=== PATIENT | male | born 1965 | race Hispanic/Latino ===

== ENCOUNTER 2024-02-12 10:24 | Inpatient (IN) | payer SELFPAY ==
[~2024-02-12] VITALS: Ht 165.1 cm; Wt 63.5 kg
[2024-02-12 10:50] LABS: BASOPHILS # (AUTO) 0.02 K/uL (0.00-0.20); BASOPHILS % (AUTO) 0.2 % (0.0-5.0); HEMATOCRIT 24.1 % (42-54); IMMATURE GRANULOCYTE ABSOLUTE 0.06 K/uL (0-1); LYMPHOCYTES # (AUTO) 0.9 K/uL (1.0-4.8); LYMPHOCYTES % (AUTO) 8.6 % (21.0-51.0); MEAN CORPUSCULAR HEMOGLOBIN 23.3 pg (27.0-33.0); MEAN CORPUSCULAR HGB CONC 30.3 g/dL (32.0-36.0); MONOCYTES # (AUTO) 0.9 K/uL (0.1-1.0); MONOCYTES % (AUTO) 8.5 % (3.0-13.0); NEUTROPHILS # (AUTO) 8.3 K/uL (1.8-7.7); NEUTROPHILS % (AUTO) 82.1 % (40.0-77.0); PLATELET COUNT (AUTO) 200 K/uL (130-400); RED BLOOD CELL COUNT(AUTO) 3.13 MIL/uL (4.50-6.20); RED CELL DISTRIBUTION WIDTH 18.4 % (11.0-15.5); WHITE BLOOD COUNT (AUTO) 10.1 K/uL (4.8-10.8)
[2024-02-12 10:58] LABS: CREATININE 0.9 mg/dL (0.5-1.3); POTASSIUM 4.1 mmol/L (3.5-5.1)
[2024-02-12 11:07] LABS: B-TYPE NATRIURETIC PEPTIDE 34 pg/mL (0-100)
[2024-02-12] MEDS: ALBUMIN (HUMAN) 25% 100 ML IV ONE ×3 (11:52→12:21)
[2024-02-12 11:55] LABS: WBC MORPHOLOGY CONSISTENT W/DIFF
[2024-02-12 12:12] LABS: INR 1.45 (0.85-1.15); PROTHROMBIN TIME 15.2 SEC (9.6-11.6)
[2024-02-12 12:13] LABS: PARTIAL THROMBOPLASTIN TIME 29.6 SEC (26.3-35.5)
[2024-02-12] MEDS ORDERED: ondanSETRON 4MG INJ IVP PRN ×2 (13:30→14:00)
[2024-02-12 13:58] LABS: APPEARANCE BODY FLUID CLEAR (CLEAR); COLOR,BODY FLUID YELLOW (LT YELLOW); SPECIMENTYPE,BODY FLUID PARACENTESIS; TOTAL VOLUME,BODY FLUID 7000 mL
[2024-02-12] MEDS ORDERED: IpraTROPium 0.5 MG/2.5 ML INH IH PRN (14:00)
[2024-02-12] MEDS: THIAMINE HCL 100 MG/ML 2ML VIAL IVP SCH (14:03)
[2024-02-12] MEDS: cefTRIAXone 1G VIAL IVPB SCH (14:03)
[2024-02-12] MEDS: PANTOPrazole 40 MG/VIAL IVP SCH (14:03)
[2024-02-12 14:26] LABS: % IRON SATURATION 5.6 % (30-44)
[2024-02-12 14:27] LABS: BF LYMPHOCYTE 12 %; BF MESOTHELIAL 8 %; BF MONOCYTE 16 %; BF TOTAL CELLS COUNTED 100
[2024-02-12 14:31] LABS: HEMOGLOBIN A1C 4.6 % (4.0-6.0)
[2024-02-12 14:33] LABS: BODY FLUID RBC 0 /cu. mm.; BODY FLUID WBC 1350 /cu. mm.
[2024-02-12 14:40] LABS: ALANINE AMINOTRANSFERASE 18 U/L (12-78); ALBUMIN 2.8 g/dL (3.5-5.0); ALCOHOL, BLOOD < 3 mg/dL (0-10); AMMONIA 34 umol/L (11-32); ASPARTATE AMINOTRANSFERASE 19 U/L (10-37); BILIRUBIN,DIRECT 0.6 mg/dL (0.0-0.3); BILIRUBIN,TOTAL 1.2 mg/dL (0.2-1.0); TOTAL PROTEIN, SERUM 6.2 g/dL (6.0-8.3)
[2024-02-12] MEDS ORDERED: CEFTRIAXONE 2GM VIAL IVPB SCH (15:00)
[2024-02-12 15:04] LABS: THYROID STIMULATING HORMONE 2.75 uIU/mL (0.36-3.74)
[2024-02-12] MEDS: cefTRIAXone 1G VIAL IVPB ONE (15:13)
[2024-02-12] MEDS: ALBUMIN (HUMAN) 25% 100 ML IV SCH (15:14)
[2024-02-12 15:15] LABS: APPEARANCE,URINE CLEAR (CLEAR); BILIRUBIN,URINE NEGATIVE (NEGATIVE); COLOR,URINE YELLOW (YELLOW); GLUCOSE, URINE (UA) NEGATIVE (NEGATIVE); KETONES,URINE NEGATIVE (NEGATIVE); LEUKOCYTE ESTERASE ,URINE NEGATIVE Leu/uL (NEGATIVE); NITRATE,URINE NEGATIVE (NEGATIVE); OCCULT BLOOD,URINE NEGATIVE (NEGATIVE); PH,URINE 5.5 (5.0-8.0); PROTEIN,URINE NEGATIVE (NEGATIVE)
[2024-02-12 15:16] LABS: ADD UA MICROSCOPIC YES
[2024-02-12 15:18] LABS: CREATININE,URINE RANDOM 129.93 mg/dL (30-135); SODIUM,URINE RANDOM < 13 mmol/l (40-220)
[2024-02-12 15:19] LABS: BACTERIA,URINE RARE /HPF (None Seen); MUCUS,URINE RARE LPF (None Seen); OTHER CASTS, URINE 1 /LPF (None Seen); RBC,URINE 0-1 /HPF (0-1); SQUAMOUS EPITHELIAL CELL,UR RARE /HPF (0-2)
[2024-02-12 15:23] LABS: AMPHET/METH SCREEN,URINE NEGATIVE (NEGATIVE); BARBITURATE SCREEN, URINE NEGATIVE (NEGATIVE); BENZODIAZEPINES SCREEN,URINE NEGATIVE (NEGATIVE); CANNABINOID SCREEN,URINE POSITIVE (NEGATIVE); COCAINE SCREEN,URINE NEGATIVE (NEGATIVE); OPIATE SCREEN,URINE NEGATIVE (NEGATIVE); PHENCYCLIDINE SCREEN,URINE NEGATIVE (NEGATIVE)
[2024-02-12 15:40] LABS: HIV 1&2 ANTIBODY Non-Reactive (Negative)
[2024-02-12 15:41] LABS: HIV-1 p24 Antigen Non-Reactive (Negative)
[2024-02-12 15:44] VITALS: PULSE 109; RESP 16; O2SAT 96
[2024-02-12] MEDS: octREOtide aceTATe 100 MCG/ML AMP IV ONE (16:22)
[2024-02-12] MEDS: INSULIN humuLIN R 100 UNIT/ML 3ML SQ SCH (16:30)
[2024-02-12] MEDS: octREOtide aceTATe 1,250 MCG in 0.9% NACL 250ML 250 ML IV SCH (16:58)
[2024-02-12 18:07] LABS: HEMATOCRIT 19.9 % (42-54)
[2024-02-12 18:42] LABS: ABG OXYGEN SATURATION 30.2 % (94.0-98.0); BASE EXCESS,VENOUS BLOOD GAS 0.7 (-2.0-3.0); DEVICE COMMENT VBG; HCO3,VENOUS BLOOD GAS 25.4 (22.0-29.0); PCO2,VENOUS BLOOD GAS 41 (38-54); PH,VENOUS BLOOD GAS 7.409 (7.320-7.430); PO2,VENOUS BLOOD GAS 20.9 mmHg (23.0-48.0)
[2024-02-12 18:49] LABS: HEMATOCRIT 21.1 % (42-54)
[2024-02-12] MEDS: SPIRONOLACTONE 25 MG TAB PO SCH (21:00)
[2024-02-12 22:45] VITALS: BP 136/86; PULSE 116; RESP 18; TEMP 97.9
[2024-02-13] VITALS (25 sets, daily range): BP systolic 104–190; BP diastolic 70–87; PULSE 100–124; RESP 18–25; TEMP 97.3–98.8; O2SAT 92–98
[2024-02-13 00:42] LABS: HEMATOCRIT 24.1 % (42-54)
[2024-02-13 04:20] LABS: BASOPHILS # (AUTO) 0.03 K/uL (0.00-0.20); BASOPHILS % (AUTO) 0.3 % (0.0-5.0); EOSINOPHILS # (AUTO) 0.01 K/uL (0.00-0.70); EOSINOPHILS % (AUTO) 0.1 % (0.0-8.0); HEMATOCRIT 23.2 % (42-54); IMMATURE GRANULOCYTE ABSOLUTE 0.06 K/uL (0-1); LYMPHOCYTES # (AUTO) 1.3 K/uL (1.0-4.8); LYMPHOCYTES % (AUTO) 13.4 % (21.0-51.0); MEAN CORPUSCULAR HEMOGLOBIN 24.2 pg (27.0-33.0); MEAN CORPUSCULAR HGB CONC 30.6 g/dL (32.0-36.0); MEAN CORPUSCULAR VOLUME 79.2 fL (79-99); MONOCYTES # (AUTO) 0.7 K/uL (0.1-1.0); MONOCYTES % (AUTO) 7.7 % (3.0-13.0); NEUTROPHILS # (AUTO) 7.5 K/uL (1.8-7.7); NEUTROPHILS % (AUTO) 77.9 % (40.0-77.0); PLATELET COUNT (AUTO) 126 K/uL (130-400); RED BLOOD CELL COUNT(AUTO) 2.93 MIL/uL (4.50-6.20); RED CELL DISTRIBUTION WIDTH 17.5 % (11.0-15.5); WHITE BLOOD COUNT (AUTO) 9.7 K/uL (4.8-10.8)
[2024-02-13 04:49] LABS: ALBUMIN 2.5 g/dL (3.5-5.0); BILIRUBIN,TOTAL 2.8 mg/dL (0.2-1.0); CREATININE 0.7 mg/dL (0.5-1.3); MAGNESIUM 1.5 mg/dL (1.80-2.40); POTASSIUM 3.5 mmol/L (3.5-5.1); TOTAL PROTEIN, SERUM 5.2 g/dL (6.0-8.3)
[2024-02-13] MEDS ORDERED: LORazepam 2 MG/ML 1 ML VIAL IVP PRN (05:30)
[2024-02-13] MEDS ORDERED: chlordiazePOXIDE HCL 25 MG CAP PO PRN (05:30)
[2024-02-13] MEDS ORDERED: PHARMACY COMMUNICATION MISC PRN (05:30)
[2024-02-13] MEDS: PANTOPrazole 40 MG/VIAL IVP SCH (05:59)
[2024-02-13] MEDS: MAGNESIUM 2GM PREMIX 50ML 50 ML IV SCH (05:59)
[2024-02-13 06:01] LABS: LYMPHOCYTES % (MANUAL) 9 % (22-44); MAN.DIFF COMMENT-IMPRESSION MANUAL DIFFERENTIAL; MONOCYTES % (MANUAL) 3 % (2-9); PLATELET MORPHOLOGY COMMENT SLIGHTLY DECREASED; SEGMENTED NEUTROPHILS % 88 % (40-70); TOTAL CELLS COUNTED 100
[2024-02-13] MEDS: CEFTRIAXONE 2GM VIAL IVPB SCH (08:58)
[2024-02-13] MEDS: LACTULOSE 20 GM/30 ML UDCUP PO SCH (08:58)
[2024-02-13] MEDS: FOLic ACID 1 MG TABLET PO SCH (08:58)
[2024-02-13] MEDS: MULTIVITAMIN TABLET PO SCH (08:58)
[2024-02-13] MEDS ORDERED: furoSEMIDE 20 MG TABLET PO SCH (09:00)
[2024-02-13] MEDS ORDERED: proPOFol 10 MG/ML 20ML VIAL IV ONE (14:06)
[2024-02-13] MEDS ORDERED: LIDOCAINE PF 100MG/5ML (2%) SYRINGE 5ML ONE (14:06)
[2024-02-13] MEDS: SOD FERRIC GLUC COMPLEX/SUC 125 MG in 0.9%NACL 100ML 100 ML IV SCH (15:28)
[2024-02-13 17:39] LABS: HEPATITIS B CORE AB TOTAL Non-Reactive (Nonreactive); HEPATITIS B SURFACE ANTIBODY Negative (Reactive); HEPATITIS B SURFACE ANTIGEN Non-Reactive (Nonreactive)
[2024-02-13] MEDS: PANTOPrazole 40 MG TAB DR PO SCH (20:09)
[2024-02-14] VITALS (7 sets, daily range): BP systolic 115–136; BP diastolic 61–79; PULSE 99–104; RESP 18–20; TEMP 97.9–98.8; O2SAT 96
[2024-02-14] MEDS: acetaMINOPHEN 500 MG TABLET PO PRN (03:11)
[2024-02-14 04:48] LABS: BASOPHILS # (AUTO) 0.04 K/uL (0.00-0.20); BASOPHILS % (AUTO) 0.5 % (0.0-5.0); EOSINOPHILS # (AUTO) 0.04 K/uL (0.00-0.70); EOSINOPHILS % (AUTO) 0.5 % (0.0-8.0); HEMATOCRIT 23.5 % (42-54); IMMATURE GRANULOCYTE ABSOLUTE 0.05 K/uL (0-1); LYMPHOCYTES # (AUTO) 1.3 K/uL (1.0-4.8); LYMPHOCYTES % (AUTO) 17.7 % (21.0-51.0); MEAN CORPUSCULAR HEMOGLOBIN 24.3 pg (27.0-33.0); MEAN CORPUSCULAR HGB CONC 31.1 g/dL (32.0-36.0); MEAN CORPUSCULAR VOLUME 78.1 fL (79-99); MONOCYTES # (AUTO) 0.8 K/uL (0.1-1.0); MONOCYTES % (AUTO) 10.3 % (3.0-13.0); NEUTROPHILS # (AUTO) 5.2 K/uL (1.8-7.7); NEUTROPHILS % (AUTO) 70.3 % (40.0-77.0); PLATELET COUNT (AUTO) 130 K/uL (130-400); RED BLOOD CELL COUNT(AUTO) 3.01 MIL/uL (4.50-6.20); WHITE BLOOD COUNT (AUTO) 7.4 K/uL (4.8-10.8)
[2024-02-14 05:15] LABS: CREATININE 0.7 mg/dL (0.5-1.3); POTASSIUM 3.6 mmol/L (3.5-5.1)
[2024-02-14 05:35] LABS: BASOPHILS % (MANUAL) 2 % (0-2); EOSINOPHILS % (MANUAL) 1 % (1-6); LYMPHOCYTES % (MANUAL) 7 % (22-44); MAN.DIFF COMMENT-IMPRESSION MANUAL DIFFERENTIAL; MONOCYTES % (MANUAL) 4 % (2-9); SEGMENTED NEUTROPHILS % 86 % (40-70); TOTAL CELLS COUNTED 100
[2024-02-14 05:36] LABS: PLATELET MORPHOLOGY COMMENT SLIGHTLY DECREASED
[2024-02-14] MEDS: ALBUMIN (HUMAN) 25% 100 ML IV SCH (06:09)
[2024-02-14 14:57] LABS: ALBUMIN,BODY FLUID < 0.6 g/dL; TOTAL PROTEIN,BODY FLUID < 2.0 g/dL
[2024-02-15] VITALS (8 sets, daily range): BP systolic 108–133; BP diastolic 59–79; PULSE 105–119; RESP 17–20; TEMP 98.2–98.9; O2SAT 96
[2024-02-15 04:43] LABS: BASOPHILS # (AUTO) 0.03 K/uL (0.00-0.20); BASOPHILS % (AUTO) 0.5 % (0.0-5.0); EOSINOPHILS # (AUTO) 0.06 K/uL (0.00-0.70); EOSINOPHILS % (AUTO) 0.9 % (0.0-8.0); HEMATOCRIT 23.1 % (42-54); IMMATURE GRANULOCYTE ABSOLUTE 0.03 K/uL (0-1); LYMPHOCYTES # (AUTO) 1.2 K/uL (1.0-4.8); MEAN CORPUSCULAR HEMOGLOBIN 24.3 pg (27.0-33.0); MEAN CORPUSCULAR HGB CONC 30.7 g/dL (32.0-36.0); MEAN CORPUSCULAR VOLUME 79.1 fL (79-99); MONOCYTES # (AUTO) 0.6 K/uL (0.1-1.0); MONOCYTES % (AUTO) 9.8 % (3.0-13.0); NEUTROPHILS # (AUTO) 4.6 K/uL (1.8-7.7); NEUTROPHILS % (AUTO) 70.3 % (40.0-77.0); PLATELET COUNT (AUTO) 122 K/uL (130-400); RED BLOOD CELL COUNT(AUTO) 2.92 MIL/uL (4.50-6.20); RED CELL DISTRIBUTION WIDTH 18.6 % (11.0-15.5); WHITE BLOOD COUNT (AUTO) 6.5 K/uL (4.8-10.8)
[2024-02-15 05:05] LABS: ALBUMIN 2.5 g/dL (3.5-5.0); BILIRUBIN,TOTAL 0.7 mg/dL (0.2-1.0); CREATININE 0.8 mg/dL (0.5-1.3); POTASSIUM 3.5 mmol/L (3.5-5.1); TOTAL PROTEIN, SERUM 5.3 g/dL (6.0-8.3)
[2024-02-15] MEDS: PoTASSium chloRIDE 20MEQ ER 20 MEQ ERTAB PO ONE (10:23)
[2024-02-15] MEDS ORDERED: PoTASSium chl 10% ELIXIR 20MEQ 20 MEQ/15 ML UDCUP PO PRN (12:00)
[2024-02-15] MEDS ORDERED: MAGNESIUM 2GM PREMIX 50ML 50 ML IV PRN (12:00)
[2024-02-15] MEDS ORDERED: PoTASSium chloRIDE 20MEQ/100ML 100 ML IV PRN (12:00)
[2024-02-16] VITALS: BP 117/64; PULSE 103; RESP 18; TEMP 99.1
[2024-02-16 04:00] VITALS: BP 111/64; PULSE 109; RESP 18; TEMP 99
[2024-02-16 04:15] LABS: BASOPHILS # (AUTO) 0.03 K/uL (0.00-0.20); BASOPHILS % (AUTO) 0.6 % (0.0-5.0); EOSINOPHILS # (AUTO) 0.08 K/uL (0.00-0.70); EOSINOPHILS % (AUTO) 1.5 % (0.0-8.0); HEMATOCRIT 23.6 % (42-54); IMMATURE GRANULOCYTE ABSOLUTE 0.03 K/uL (0-1); LYMPHOCYTES # (AUTO) 1.1 K/uL (1.0-4.8); LYMPHOCYTES % (AUTO) 19.7 % (21.0-51.0); MEAN CORPUSCULAR HEMOGLOBIN 24.9 pg (27.0-33.0); MEAN CORPUSCULAR HGB CONC 30.9 g/dL (32.0-36.0); MEAN CORPUSCULAR VOLUME 80.5 fL (79-99); MONOCYTES # (AUTO) 0.5 K/uL (0.1-1.0); MONOCYTES % (AUTO) 9.4 % (3.0-13.0); NEUTROPHILS # (AUTO) 3.7 K/uL (1.8-7.7); NEUTROPHILS % (AUTO) 68.2 % (40.0-77.0); PLATELET COUNT (AUTO) 107 K/uL (130-400); RED BLOOD CELL COUNT(AUTO) 2.93 MIL/uL (4.50-6.20); RED CELL DISTRIBUTION WIDTH 19.9 % (11.0-15.5); WHITE BLOOD COUNT (AUTO) 5.4 K/uL (4.8-10.8)
[2024-02-16 04:36] LABS: ALBUMIN 2.3 g/dL (3.5-5.0); BILIRUBIN,TOTAL 0.5 mg/dL (0.2-1.0); CREATININE 0.6 mg/dL (0.5-1.3); MAGNESIUM 1.5 mg/dL (1.80-2.40); PHOSPHORUS 1.5 mg/dL (2.5-4.9); TOTAL PROTEIN, SERUM 5.3 g/dL (6.0-8.3)
[2024-02-16 04:44] LABS: EOSINOPHILS % (MANUAL) 3 % (1-6); LYMPHOCYTES % (MANUAL) 30 % (22-44); MAN.DIFF COMMENT-IMPRESSION MANUAL DIFFERENTIAL; MONOCYTES % (MANUAL) 2 % (2-9); SEGMENTED NEUTROPHILS % 65 % (40-70); TOTAL CELLS COUNTED 100
[2024-02-16 04:45] LABS: PLATELET MORPHOLOGY COMMENT SLIGHTLY DECREASED; WBC MORPHOLOGY REACTIVE LYMPHS 1+
[2024-02-16 07:57] VITALS: BP 119/67; PULSE 107; RESP 17; TEMP 98.3
[2024-02-16] MEDS ORDERED: ALBUMIN (HUMAN) 25% 100 ML IV PRN (09:30)
[2024-02-16] MEDS ORDERED: MAGNESIUM 2GM PREMIX 50ML 50 ML IV SCH (09:30)
[2024-02-16 12:00] VITALS: BP 112/63; PULSE 104; RESP 19; TEMP 98.2
[2024-02-16] MEDS: NEOMY SULF/BACITRA/POLYMYXIN B 1 EACH PACKET TP ONE (12:19)
[2024-02-16 15:51] VITALS: BP 131/74; PULSE 112; RESP 19; TEMP 97.8
[2024-02-16 19:00] VITALS: BP 126/74; PULSE 110; RESP 20; TEMP 98.7
[2024-02-16] MEDS: NEOMY SULF/BACITRA/POLYMYXIN B 1 EACH PACKET TP SCH (20:03)
[2024-02-17] VITALS: BP 129/66; PULSE 123; RESP 20; TEMP 99.9
[2024-02-17 04:00] VITALS: BP 117/74; PULSE 109; RESP 20; TEMP 98.3
[2024-02-17 04:36] LABS: BASOPHILS # (AUTO) 0.05 K/uL (0.00-0.20); EOSINOPHILS # (AUTO) 0.22 K/uL (0.00-0.70); EOSINOPHILS % (AUTO) 4.4 % (0.0-8.0); HEMATOCRIT 22.6 % (42-54); IMMATURE GRANULOCYTE ABSOLUTE 0.02 K/uL (0-1); LYMPHOCYTES # (AUTO) 1.1 K/uL (1.0-4.8); MEAN CORPUSCULAR HEMOGLOBIN 25.1 pg (27.0-33.0); MONOCYTES # (AUTO) 0.6 K/uL (0.1-1.0); MONOCYTES % (AUTO) 12.1 % (3.0-13.0); NEUTROPHILS % (AUTO) 60.1 % (40.0-77.0); PLATELET COUNT (AUTO) 109 K/uL (130-400); RED BLOOD CELL COUNT(AUTO) 2.79 MIL/uL (4.50-6.20)
[2024-02-17 04:42] LABS: ALBUMIN 2.1 g/dL (3.5-5.0); BILIRUBIN,TOTAL 0.5 mg/dL (0.2-1.0); CREATININE 0.7 mg/dL (0.5-1.3); MAGNESIUM 1.7 mg/dL (1.80-2.40); POTASSIUM 3.8 mmol/L (3.5-5.1); TOTAL PROTEIN, SERUM 5.3 g/dL (6.0-8.3); URIC ACID 1.8 mg/dL (2.6-7.2)
[2024-02-17 06:02] LABS: EOSINOPHILS % (MANUAL) 2 % (1-6); LYMPHOCYTES % (MANUAL) 26 % (22-44); SEGMENTED NEUTROPHILS % 72 % (40-70); TOTAL CELLS COUNTED 100
[2024-02-17 06:03] LABS: MAN.DIFF COMMENT-IMPRESSION MANUAL DIFFERENTIAL
[2024-02-17 06:05] LABS: PLATELET MORPHOLOGY COMMENT DECREASED; WBC MORPHOLOGY REACTIVE LYMPHS 1+
[2024-02-17 07:47] VITALS: BP 119/64; PULSE 103; RESP 16; TEMP 99
[2024-02-17 11:48] VITALS: BP 126/77; PULSE 101; RESP 16; TEMP 98.2
[2024-02-17 20:00] VITALS: BP 117/77; PULSE 65; RESP 18; TEMP 98
[2024-02-18] VITALS (7 sets, daily range): BP systolic 122–154; BP diastolic 68–83; PULSE 54–97; RESP 16–20; TEMP 97.6–98.5; O2SAT 99
[2024-02-18 05:55] LABS: BASOPHILS # (AUTO) 0.03 K/uL (0.00-0.20); BASOPHILS % (AUTO) 0.6 % (0.0-5.0); EOSINOPHILS # (AUTO) 0.22 K/uL (0.00-0.70); EOSINOPHILS % (AUTO) 4.6 % (0.0-8.0); HEMATOCRIT 28.9 % (42-54); IMMATURE GRANULOCYTE ABSOLUTE 0.01 K/uL (0-1); LYMPHOCYTES # (AUTO) 1.1 K/uL (1.0-4.8); LYMPHOCYTES % (AUTO) 22.4 % (21.0-51.0); MEAN CORPUSCULAR HEMOGLOBIN 26.6 pg (27.0-33.0); MEAN CORPUSCULAR HGB CONC 32.2 g/dL (32.0-36.0); MEAN CORPUSCULAR VOLUME 82.8 fL (79-99); MONOCYTES # (AUTO) 0.6 K/uL (0.1-1.0); NEUTROPHILS # (AUTO) 2.8 K/uL (1.8-7.7); NEUTROPHILS % (AUTO) 59.2 % (40.0-77.0); PLATELET COUNT (AUTO) 103 K/uL (130-400); RED BLOOD CELL COUNT(AUTO) 3.49 MIL/uL (4.50-6.20); RED CELL DISTRIBUTION WIDTH 21.1 % (11.0-15.5); WHITE BLOOD COUNT (AUTO) 4.8 K/uL (4.8-10.8)
[2024-02-18 06:09] LABS: ALBUMIN 2.2 g/dL (3.5-5.0); BILIRUBIN,TOTAL 1.2 mg/dL (0.2-1.0); CREATININE 0.6 mg/dL (0.5-1.3); MAGNESIUM 1.7 mg/dL (1.80-2.40); POTASSIUM 3.7 mmol/L (3.5-5.1); TOTAL PROTEIN, SERUM 5.5 g/dL (6.0-8.3)
[2024-02-18] MEDS: PoTASSium chloRIDE 20MEQ ER 20 MEQ ERTAB PO PRN (08:33)
[2024-02-18] MEDS: MAGNESIUM 2GM PREMIX 50ML 50 ML IV SCH (08:34)
[2024-02-18] MEDS: ALBUMIN (HUMAN) 25% 50 ML IV SCH (12:00)
[2024-02-18] MEDS: SPIRONOLACTONE 25 MG TAB PO SCH (13:30)
[2024-02-18] MEDS: PROPRANOLOL HCL 10 MG TAB PO SCH (13:31)
[2024-02-18] MEDS: furoSEMIDE 20 MG TABLET PO SCH (13:31)
[2024-02-18] MEDS ORDERED: ALBUMIN (HUMAN) 25% 50 ML IV SCH (18:30)
[2024-02-18] MEDS ORDERED: SPIRONOLACTONE 25 MG TAB PO SCH (21:00)
[2024-02-19 04:00] VITALS: BP 118/67; PULSE 77; RESP 16; TEMP 98.6
[2024-02-19 05:42] LABS: HEMATOCRIT 29.5 % (42-54); MEAN CORPUSCULAR HEMOGLOBIN 26.3 pg (27.0-33.0); MEAN CORPUSCULAR HGB CONC 31.5 g/dL (32.0-36.0); MEAN CORPUSCULAR VOLUME 83.3 fL (79-99); RED BLOOD CELL COUNT(AUTO) 3.54 MIL/uL (4.50-6.20); RED CELL DISTRIBUTION WIDTH 22.2 % (11.0-15.5)
[2024-02-19 05:54] LABS: CREATININE 0.7 mg/dL (0.5-1.3); MAGNESIUM 1.8 mg/dL (1.80-2.40); PHOSPHORUS 2.6 mg/dL (2.5-4.9); POTASSIUM 4.3 mmol/L (3.5-5.1)
[2024-02-19 08:00] VITALS: BP 141/81; PULSE 76; RESP 18; TEMP 97.9
[2024-02-19] MEDS ORDERED: furoSEMIDE 20 MG TABLET PO SCH (09:00)
[2024-02-19] MEDS ORDERED: PROPRANOLOL HCL 10 MG TAB PO SCH (09:00)
[2024-02-19 12:00] VITALS: BP 127/72; PULSE 73; RESP 18; TEMP 98.1
[2024-02-19] MEDS ORDERED: PANT40TA PO (13:03)
[2024-02-19] MEDS ORDERED: PROP10TA72 PO (13:03)
[2024-02-19] MEDS ORDERED: MVIT PO (13:03)
[2024-02-19] MEDS ORDERED: SPIR25TA6 PO (13:03)
[2024-02-19] MEDS ORDERED: LACT PO (13:03)
[2024-02-19] MEDS ORDERED: FURO20TA6 PO (13:03)
[2024-02-19 16:00] VITALS: BP 132/73; PULSE 72; RESP 18; TEMP 98.3
[2024-02-19 20:43] VITALS: BP 112/66; PULSE 91; RESP 18; TEMP 99.1
[2024-02-20 00:11] VITALS: BP 126/78; PULSE 61; RESP 18; TEMP 98
[2024-02-20 04:54] VITALS: BP 127/66; PULSE 81; RESP 18; TEMP 98.2
[2024-02-20 04:55] LABS: MEAN CORPUSCULAR HEMOGLOBIN 26.3 pg (27.0-33.0); RED BLOOD CELL COUNT(AUTO) 3.53 MIL/uL (4.50-6.20); RED CELL DISTRIBUTION WIDTH 22.7 % (11.0-15.5); WHITE BLOOD COUNT (AUTO) 4.1 K/uL (4.8-10.8)
[2024-02-20 05:21] LABS: ALBUMIN 2.4 g/dL (3.5-5.0); BILIRUBIN,TOTAL 0.6 mg/dL (0.2-1.0); CREATININE 0.8 mg/dL (0.5-1.3); MAGNESIUM 1.5 mg/dL (1.80-2.40); TOTAL PROTEIN, SERUM 5.8 g/dL (6.0-8.3)
[2024-02-20 07:57] VITALS: BP 139/77; PULSE 91; RESP 20; TEMP 98.4
[2024-02-20 08:00] VITALS: O2SAT 100
[2024-02-20 11:18] VITALS: BP 118/72; PULSE 72; RESP 16; TEMP 97.8
== END 2024-02-20 13:05 | disposition home or self-care (01) | DRG 432 ==
LOC: EDH 10:24 → EDHIP 10:25 → UNDOADMIN 14:30 → EDHIP 14:30 → 4CH 22:04
PROVIDERS: ADMIT Internal Medicine; ATTEND Internal Medicine
PROC: 30233N1 Transfusion of Nonautologous Red Blood Cells into Peripheral Vein, Percutaneous Approach (ICD-10-PCS; principal; 2024-02-12)
PROC: 0W9G3ZZ Drainage of Peritoneal Cavity, Percutaneous Approach (ICD-10-PCS; 2024-02-12)
PROC: 06L38CZ Occlusion of Esophageal Vein with Extraluminal Device, Via Natural or Artificial Opening Endoscopic (ICD-10-PCS; 2024-02-13)
DX: K70.31 Alcoholic cirrhosis of liver with ascites (principal); E43 Unspecified severe protein-calorie malnutrition; K65.2 Spontaneous bacterial peritonitis; D62 Acute posthemorrhagic anemia; D68.9 Coagulation defect, unspecified; E87.1 Hypo-osmolality and hyponatremia; K63.3 Ulcer of intestine; J90 Pleural effusion, not elsewhere classified; J98.11 Atelectasis; E87.20 Acidosis, unspecified; I85.10 Secondary esophageal varices without bleeding; K29.00 Acute gastritis without bleeding; K70.40 Alcoholic hepatic failure without coma; E86.1 Hypovolemia; R54 Age-related physical debility; E11.9 Type 2 diabetes mellitus without complications; J44.9 Chronic obstructive pulmonary disease, unspecified; E87.70 Fluid overload, unspecified; I10 Essential (primary) hypertension; D50.9 Iron deficiency anemia, unspecified; F10.20 Alcohol dependence, uncomplicated; Z63.4 Disappearance and death of family member; Z79.899 Other long term (current) drug therapy; Z82.49 Family history of ischemic heart disease and other diseases of the circulatory system; Z83.3 Family history of diabetes mellitus; Z93.3 Colostomy status; Z68.23 Body mass index [BMI] 23.0-23.9, adult
CPT/HCPCS: 36415; 36600; 43244; 71045; 74176; 76700; 76705; 80048; 80053; 80076; 80305; 81001; 82042; 82140; 82270; 82435; 82550; 82570; 82607; 82728; 82746; 82803; 82947; 82948; 83036; 83540; 83550; 83605; 83615; 83735; 83880; 84100; 84132; 84157; 84295; 84300; 84443; 84484; 84550; 85014; 85018; 85025; 85027; 85610; 85730; 86701; 86704; 86706; 86803; 86850; 86900; 86901; 86923; 87040; 87071; 87205; 87340; 87390; 88112; 88305; 89051; 93005; 93306; 93356; 93970; 94664; 96365; 96375; 99291; A4606; G0378; J0696; J1815; J2003; J2354; J2470; J2704; J2916; J3411; J3475; J7030; J7050; P9016; P9046; P9047; A4215; A4222; A4620; A4657; J3490

== ENCOUNTER 2024-06-04 10:28 | Emergency (ER) | payer SELFPAY ==
[~2024-06-04] VITALS: Ht 162.6 cm; Wt 65.8 kg
[~2024-06-04 10:28] MED LIST: AZIT500T4 PO; FURO20TA6 PO; LACT PO; MVIT PO; PANT40TA PO; PROP10TA72 PO; SPIR25TA6 PO
--- NOTE | 2024-06-04 10:47 | ERN ---
ED Note History of Present Illness Stated Complaint: DRAIN STOMACH Time Seen by MD: 10:32 Dictation: PATIENT IS A 58-YEAR-OLD MALE COMING IN TODAY WITH COMPLAINTS OF ABDOMINAL DISTENTION AND SOB FOR TWO WEEKS. NO CHEST PAIN NO BACK PAIN NO FEVER NO CHILLS. HE DOES HAVE A HISTORY OF ALCOHOLIC CIRRHOSIS STATES HE GOES ONLY TO EMERGENCY ROOMS FOR HIS PARACENTESIS. HE HAS BEEN SEEN AT [facility] [place] IN THE PAST. HE STATES HE DOES NOT HAVE A PRIMARY CARE DOCTOR OR A TWO WAY RADIO INSTALLER, WOULD LIKE SOME HELP WITH THE EMERGENCY MEDICAID TO OBTAIN A PHYSICIAN. Allergies: Coded Allergies: No Known Drug Allergies (Unverified Allergy, Unknown, 02/12/24) Home Meds Active Scripts Azithromycin (Azithromycin) 500 Mg Tablet, 1 TAB PO DAILY for 5 Days, #5 TAB 0 Refills Prov:STIVEN CRAWLEY Luis [facility] 05/12/24 Spironolactone (Spironolactone) 25 Mg Tablet, 25 MG PO BID, #60 TAB 0 Refills Prov:MISBAHSTIVEN B [facility] 02/19/24 Propranolol HCl (Inderal) 10 Mg Tab, 10 MG PO DAILY, #30 TAB 0 Refills Prov:ANI CRAWLEYROBBI Smith [facility] 02/19/24 Pantoprazole Sodium (Protonix) 40 Mg Tablet.dr, 40 MG PO BID, #60 TAB 0 Refills Prov:STIVEN CRAWLEY Luis [facility] 02/19/24 Multivitamins,Therapeutic (Multivitamin Tablet) 400 Mcg Tab, 1 TAB PO DAILY, #30 TAB 0 Refills Prov:CRAWLEYSTIVEN Luis [facility] 02/19/24 Lactulose (Cephulac/Enulose Soln) 20 Gram/30 Ml Soln, 20 GM PO DAILY, #1 BOTTLE Prov:CRAWLEYSTIVEN Luis [facility] 02/19/24 Furosemide (Lasix 20Mg Tab) 20 Mg Tablet, 20 MG PO DAILY, #30 TAB Prov:STIVEN CRAWLEY Luis [facility] 02/19/24 Past Medical History Past Medical History: Anemia, CHF, Diabetes-Type II, Hypertension, Liver Disease Surgical History: None PSYCH History: no pertinent psych hx RN Note Reviewed/Agreed w/PFSH: Yes Review of System Dictation CONSTITUTIONAL: NEGATIVE EXCEPT FOR HPI HEAD/FACE: NEGATIVE EXCEPT FOR HPI EENT: NEGATIVE EXCEPT FOR HPI RESPIRATORY: NEGATIVE EXCEPT FOR HPI SOB GASTROINTESTINAL/ABDOMINAL: NEGATIVE EXCEPT FOR HPI ABDOMINAL DISTENTION WITH A ASCITES GENITOURINARY: NEGATIVE EXCEPT FOR HPI MUSCULOSKELETAL: NEGATIVE EXCEPT FOR HPI INTEGUMENTARY: NEGATIVE EXCEPT FOR HPI NEUROLOGICAL/PSYCH: NEGATIVE EXCEPT FOR HPI HEMATOLOGIC/LYMPHATIC: NEGATIVE EXCEPT FOR HPI ALL SYSTEMS NEGATIVE, EXCEPT NOTED ABOVE. 13 POINT REVIEW OF SYSTEMS ASSESSED AND ALL NEGATIVE EXCEPT FOR ABOVE. Initial Vital Sign VS Vital Signs Date Time Temp Pulse Resp B/P (MAP) Pulse Ox O2 Delivery O2 Flow Rate FiO2 06/04/24 10:49 98.1 112 24 145/111 99 Room Air 06/04/24 11:24 0 21 Physical Exam Dictation VITAL SIGNS REVIEWED GENERAL APPEARANCE: ALERT, ORIENTED X 3, [id number] DISTRESS, APPEARS DEBILITATED SHORTNESS A BREATH WITH THE EXERTION HEAD AND FACE: NON-TRAUMATIC. EYES: PERRL, PINK CONJUNCTIVAS, EYELID NO TRAUMA, ANTERIOR CHAMBER WITH ARCUS SENILIS. EARS: PINNAS INTACT AND NO SIGNS OF TRAUMA OR ERYTHEMA EAR CANALS CLEAR AND NO DISCHARGE TM NO ERYTHEMA NOSE: NO DISCHARGE, NO BLEEDING. OROPHARYNX: MOUTH NORMAL, TONGUE PINK, PHARYNX CLEAR,NO ERYTHEMA, TONSILS NO EXUDATES, NO ABSCESSES NOTED, MUCOUS MEMBRANE MOIST NECK: SUPPLE, NON-TENDER, NO THYROMEGALY, NO MASSES, NO JVD, NO BRUITS BREAST:DEFERRED CHEST:NO TENDERNESS, NO CREPITUS, NO PARADOXICAL MOVEMENT, NO RETRACTIONS LUNGS:CLEAR, WELL-VENTILATED, SYMMETRIC, NO RALES, NO WHEEZING, NO RHONCHI, NO STRIDOR, GOOD BREATH SOUNDS BILATERALLY HEART: REGULAR RATE, REGULAR RHYTHM, NO MURMUR, NO GALLOPS VASCULAR: NO PERIPHERAL EDEMA, ABDOMEN: SOFT, POSITIVE BOWEL SOUNDS, ABDOMEN DISTENDED WITH POSITIVE WAVE SIGN, NO GUARDING, NONTENDER, NO REBOUND, NO MASSES N POSITIVE HEPATOMEGALY, NO SPLENOMEGALY, NO ROBERTSON'S SIGN, NO HERNIAS. RECTAL: DEFERRED GENITAL: DEFERRED NEUROLOGICAL: NORMAL SPEECH, MOTOR FUNCTION INTACT, SENSORY FUNCTION INTACT MUSCULOSKELETAL: NECK NONTENDER, FULL RANGE OF MOTION, BACK NONTENDER, FULL RANGE OF MOTION, EXTREMITIES: NONTENDER, FULL RANGE OF MOTION SKIN: COLOR PINK, DRY, NO TURGOR, NO RASH, NO LACERATIONS, NO ABRASIONS, NO CON TUSIONS. LYMPHATIC: DEFERRED Results (Laboratory/Radiology) Laboratory/Radiology Laboratory Tests Test 06/04/24 11:34 White Blood Count 4.3 K/uL (4.8-10.8) L Red Blood Count 4.24 MIL/uL (4.50-6.20) L Hemoglobin 11.7 g/dL (14.0-18.0) L Hematocrit 37.2 % (42-54) L Mean Corpuscular Volume 87.7 fL (79-99) Mean Corpuscular Hemoglobin 27.6 pg (27.0-33.0) Mean Corpuscular Hemoglobin Concent 31.5 g/dL (32.0-36.0) L Red Cell Distribution Width 15.1 % (11.0-15.5) Platelet Count 202 K/uL (130-400) Mean Platelet Volume 9.0 fL (7.5-10.5) Immature Granulocyte % (Auto) 0.2 % (0-1) Neutrophils (%) (Auto) 72.6 % (40.0-77.0) Lymphocytes (%) (Auto) 18.6 % (21.0-51.0) L Monocytes (%) (Auto) 7.9 % (3.0-13.0) Eosinophils (%) (Auto) 0.2 % (0.0-8.0) Basophils (%) (Auto) 0.5 % (0.0-5.0) Neutrophils # (Auto) 3.1 K/uL (1.8-7.7) Lymphocytes # (Auto) 0.8 K/uL (1.0-4.8) L Monocytes # (Auto) 0.3 K/uL (0.1-1.0) Eosinophils # (Auto) 0.01 K/uL (0.00-0.70) Basophils # (Auto) 0.02 K/uL (0.00-0.20) Absolute Immature Granulocyte (auto 0.01 K/uL (0-1) Nucleated Red Blood Cells 0.0 % (0.0-0.19) Prothrombin Time 11.7 SEC (9.6-11.6) H Prothromb Time International Ratio 1.05 (0.85-1.15) Activated Partial Thromboplast Time 25.9 SEC (26.3-35.5) L Sodium Level 133 mmol/L (136-145) L Potassium Level 4.7 mmol/L (3.5-5.1) Chloride Level 99 mmol/L (101-111) L Carbon Dioxide Level 25 mmol/L (21-32) Blood Urea Nitrogen 21 mg/dL (7-18) H Creatinine 1.0 mg/dL (0.5-1.3) Glomerular Filtration Rate Calc 87 mL/min (>90) Random Glucose 193 mg/dL (70-105) H Total Calcium 8.9 mg/dL (8.5-10.1) Labs Reviewed?: Yes ED Course ED Course Orders Procedure Category Date Status Time Us Abdominal US 06/04/24 Taken Paracentesis Ir 10:44 Pt And Ptt LAB 06/04/24 Complete 10:44 Cbc With Differential LAB 06/04/24 Complete 10:44 Basic Metabolic Panel LAB 06/04/24 Complete 10:44 Albumin Human 25% PHA 06/04/24 Complete (Albutein) 12:31 Current Medications Medications (Trade) Dose Ordered Sig/Maciej Route PRN Reason Start Time Stop Time Status Last Admin Dose Admin Albumin Human 200 ml @ As Directed STK-MED ONCE IV 06/04/24 12:31 06/04/24 12:31 DC Vital Signs Date Time Temp Pulse Resp B/P (MAP) Pulse Ox O2 Delivery O2 Flow Rate FiO2 06/04/24 13:30 98.1 107 22 137/87 100 Room Air* 0 21 06/04/24 11:24 98.1 121 22 153/108 98 Room Air* 0 21 06/04/24 10:49 98.1 112 24 145/111 99 Room Air 1335, PATIENT WENT TO PARACENTESIS AND HAS ALREADY BEEN TREATED FOR ALBUMIN POST PARA. HE STATES HE FEELS MARKEDLY IMPROVED WE WILL BE DISCHARGED HOME. Medical Decision Making MDM MDM: DIFFERENTIAL DIAGNOSIS: CIRRHOSIS/ASCITES/ELECTROLYTE IMBALANCE/DEHYDRATION/DYSPNEA RATIONALE: TESTS CONSIDERED AND ORDERED SECONDARY TO SHARED DECISION MAKING INCLUDE: LABS/IR PARACENTESIS PREVIOUS OUTSIDE RECORDS REVIEWED: OLD ER VISITS. REVIEWED RISK OF COMPLICATION AND/OR MORBIDITY OR MORTALITY OF PATIENT MANAGEMENT: NONE MEDICATIONS-PER MEDICATION RECONCILIATION NEED FOR HOSPITALIZATION: PATIENT DOES NOT MEET CRITERIA FOR HOSPITALIZATION. NO NEED FOR EMERGENCY MAJOR/MINOR SURGERY: NO THERE ARE NO SOCIAL CONCERNS WITH THIS PATIENT. PRESCRIPTION DRUG MANAGEMENT NONE PRESCRIPTIONS WILL INCLUDE SYMPTOMATIC CARE PATIENT'S PRIOR EXTERNAL MEDICAL RECORDS FROM OTHER ER VISITS WERE REVIEWED BY ME INDICATED. PRIOR TESTING AND RESULTS FROM PREVIOUS VISITS WERE REVIEWED. PRIOR TESTS WERE TAKEN INTO ACCOUNT WITH MEDICAL DECISION MAKING AND RESOURCE UTILIZATION, INDEPENDENT HISTORIAN/HISTORIANS WERE USED TO OBTAIN COMPLETE MEDICAL HISTORY. I INDEPENDENTLY INTERPRETED THE TEST THAT WERE PERFORMED, RESULTS WERE REVIEWED BY ME AND CONSIDERED FINDINGS ON RADIOLOGY IF ORDERED. MEDICAL MANAGEMENT AND EXAMINATION INTERPRETATION DISCUSSIONS WERE HAD BY ME WITH OTHER QUALIFIED HEALTHCARE PROFESSIONALS INDICATED FOR THE PATIENT'S CARE. DX & DISP Disposition: Discharge Departure Impression: Primary Impression: Abdominal distention Additional Impressions: Cirrhosis, Hyponatremia, Uncontrolled diabetes mellitus, Dyspnea on exertion Condition: Stable Additional Instructions: Follow-up with primary care provider in 1 to 2 days. Take medications as directed here in the emergency room. Okay to continue home medications unless otherwise discussed during your visit in the emergency room today. Return to your nearest emergency room if symptoms worsen or if there is no improvement. Call 911 if you need immediate assistance. Take Tylenol or Motrin [id number] as needed and if no contraindications are present. Increase oral hydration. A wound culture or urine culture was ordered here in the emergency room department please follow-up with primary care provider and advise them to get repeat ports from our facility. If you had any Francisco wrap/splints that were applied here, please do not remove them until you see your primary care or specialty. Continue all your medications and treatments at home. Call [facility] for an appointment in the last next 1-2 days. Referrals: SELF,REFERRAL (PCP) YASSINE CRAWLEY MD Time of Disposition: 13:37 I have reviewed the case, and I agree with, Diagnosis and Plan FERMIN HERNANDEZ NP Jun 04, 2024 10:47
[2024-06-04 11:46] LABS: BASOPHILS # (AUTO) 0.02 K/uL (0.00-0.20); BASOPHILS % (AUTO) 0.5 % (0.0-5.0); EOSINOPHILS # (AUTO) 0.01 K/uL (0.00-0.70); EOSINOPHILS % (AUTO) 0.2 % (0.0-8.0); HEMATOCRIT 37.2 % (42-54); IMMATURE GRANULOCYTE ABSOLUTE 0.01 K/uL (0-1); LYMPHOCYTES # (AUTO) 0.8 K/uL (1.0-4.8); LYMPHOCYTES % (AUTO) 18.6 % (21.0-51.0); MEAN CORPUSCULAR HEMOGLOBIN 27.6 pg (27.0-33.0); MEAN CORPUSCULAR HGB CONC 31.5 g/dL (32.0-36.0); MEAN CORPUSCULAR VOLUME 87.7 fL (79-99); MONOCYTES # (AUTO) 0.3 K/uL (0.1-1.0); MONOCYTES % (AUTO) 7.9 % (3.0-13.0); NEUTROPHILS # (AUTO) 3.1 K/uL (1.8-7.7); NEUTROPHILS % (AUTO) 72.6 % (40.0-77.0); PLATELET COUNT (AUTO) 202 K/uL (130-400); RED BLOOD CELL COUNT(AUTO) 4.24 MIL/uL (4.50-6.20); RED CELL DISTRIBUTION WIDTH 15.1 % (11.0-15.5); WHITE BLOOD COUNT (AUTO) 4.3 K/uL (4.8-10.8)
[2024-06-04 11:55] LABS: INR 1.05 (0.85-1.15); PROTHROMBIN TIME 11.7 SEC (9.6-11.6)
[2024-06-04 11:56] LABS: PARTIAL THROMBOPLASTIN TIME 25.9 SEC (26.3-35.5)
[2024-06-04 12:13] LABS: POTASSIUM 4.7 mmol/L (3.5-5.1)
--- NOTE | 2024-06-04 12:20 | NUR ---
U/S GD PARACENTESIS TOLERATED PROCEDURE. PERFORMED BY DR NICHOLSON. PUNCTURE SITE TO RLQ. 15.0 LITER OF YELLOW CLOUDY FLUID REMOVED. END OF PROCEDURE AT 1220. DRESSING DRY AND INTACT. NO BLEEDING NOTED. REPORT GIVEN TO Simone LEUNG RN. A&O. DENIES PAIN. ALBUMIN 25% 50 GRAMS GIVEN PRIOR TO BEING TRANSPORTED TO ED VIA STRETCHER.
--- NOTE | 2024-06-04 12:25 | NUR ---
PT BACK FROM IR FOR PARACENTISIS. 15L REMOVED FROM RLQ. SITE IS CLEAN, DRY AND INTACT.
[2024-06-04] MEDS ORDERED: ALBUMIN HUMAN 25% 200 ML IV ONE (12:31)
[2024-06-04 13:30] VITALS: BP 137/87; PULSE 107; RESP 22; TEMP 98.1; O2SAT 100
== END 2024-06-04 13:52 | disposition home or self-care (01) ==
LOC: EDH 10:28
DX: K74.60 Unspecified cirrhosis of liver (principal); E87.1 Hypo-osmolality and hyponatremia; R14.0 Abdominal distension (gaseous); E11.65 Type 2 diabetes mellitus with hyperglycemia; I11.0 Hypertensive heart disease with heart failure; I50.9 Heart failure, unspecified; R06.09 Other forms of dyspnea; Z79.899 Other long term (current) drug therapy
CPT/HCPCS: 49083; 99285; 96365; 80048; 85025; 85610; 85730; 36415; P9046; C1729

== ENCOUNTER 2024-06-30 09:52 | Emergency (ER) | payer SELFPAY ==
[~2024-06-30] VITALS: Ht 165.1 cm; Wt 65.8 kg
[2024-06-30 10:27] LABS: BASOPHILS # (AUTO) 0.02 K/uL (0.00-0.20); BASOPHILS % (AUTO) 0.4 % (0.0-5.0); EOSINOPHILS # (AUTO) 0.01 K/uL (0.00-0.70); EOSINOPHILS % (AUTO) 0.2 % (0.0-8.0); HEMATOCRIT 35.7 % (42-54); IMMATURE GRANULOCYTE ABSOLUTE 0.02 K/uL (0-1); LYMPHOCYTES # (AUTO) 0.8 K/uL (1.0-4.8); LYMPHOCYTES % (AUTO) 13.8 % (21.0-51.0); MEAN CORPUSCULAR HGB CONC 31.9 g/dL (32.0-36.0); MEAN CORPUSCULAR VOLUME 81.3 fL (79-99); MONOCYTES # (AUTO) 0.5 K/uL (0.1-1.0); MONOCYTES % (AUTO) 9.6 % (3.0-13.0); NEUTROPHILS # (AUTO) 4.1 K/uL (1.8-7.7); NEUTROPHILS % (AUTO) 75.6 % (40.0-77.0); PLATELET COUNT (AUTO) 214 K/uL (130-400); RED BLOOD CELL COUNT(AUTO) 4.39 MIL/uL (4.50-6.20); RED CELL DISTRIBUTION WIDTH 16.3 % (11.0-15.5); WHITE BLOOD COUNT (AUTO) 5.4 K/uL (4.8-10.8)
--- NOTE | 2024-06-30 10:34 | EKG ---
[facility] Test Date: 2024-06-30 Test Time: 10:16:59 Pat Name: RALPH SHAY Department: ED Room: Gender: M Stacker Tender: 07 : 1965 Requested By: PEREZ FITZGERALD Order Number: [id number] Reading MD: Andrey Easley Measurements Intervals [place] Rate: 117 P: 6 OR: 150 QRS: -13 QRSD: 82 T: 16 QT: 338 QTc: 471 Interpretive Statements Sinus tachycardia Extensive anterior infarct, old Compared to ECG 05/07/2024 09:25:19 No significant changes Electronically Signed On 07-01-2024 11:52:30 SNELLER HAND by Andrey Easley Please click the below link to view image of tracing.
[2024-06-30 10:37] LABS: INR 1.06 (0.85-1.15); PROTHROMBIN TIME 11.8 SEC (9.6-11.6)
[2024-06-30 10:39] LABS: PARTIAL THROMBOPLASTIN TIME 26.5 SEC (26.3-35.5)
--- NOTE | 2024-06-30 10:58 | ERN ---
ED Note History of Present Illness Stated Complaint: ABD DISTENTION Chief Complaint: Abdominal Pain Time Seen by MD: 10:02 Dictation: 58-year-old male with a history of liver cirrhosis presents to the ED for evaluation of abdominal distention onset one month ago. Patient reports his last paracentesis was performed last month, but states he has been unable to follow up with PCP. Patient denies any associated symptoms at this time. Allergies: Coded Allergies: bee venom protein (honey bee) (Unverified Allergy, Unknown, 06/30/24) Home Meds Active Scripts Azithromycin (Azithromycin) 500 Mg Tablet, 1 TAB PO DAILY for 5 Days, #5 TAB 0 Refills Prov:STIVEN CRAWLEY [facility] 05/12/24 Spironolactone (Spironolactone) 25 Mg Tablet, 25 MG PO BID, #60 TAB 0 Refills Prov:STIVEN CRAWLEY [facility] 02/19/24 Propranolol HCl (Inderal) 10 Mg Tab, 10 MG PO DAILY, #30 TAB 0 Refills Prov:STIVEN CRAWLEY Luis [facility] 02/19/24 Pantoprazole Sodium (Protonix) 40 Mg Tablet.dr, 40 MG PO BID, #60 TAB 0 Refills Prov:STIVEN CRAWLEY [facility] 02/19/24 Multivitamins,Therapeutic (Multivitamin Tablet) 400 Mcg Tab, 1 TAB PO DAILY, #30 TAB 0 Refills Prov:STIVEN CRAWLEY [facility] 02/19/24 Lactulose (Cephulac/Enulose Soln) 20 Gram/30 Ml Soln, 20 GM PO DAILY, #1 BOTTLE Prov:STIVEN CRAWLEY Luis [facility] 02/19/24 Furosemide (Lasix 20Mg Tab) 20 Mg Tablet, 20 MG PO DAILY, #30 TAB Prov:STIVEN CRAWLEY [facility] 02/19/24 Past Medical History Past Medical History: Anemia, Diabetes-Type II, Hypertension, Liver Disease, Renal Failure Surgical History: None Review of System Dictation Constitutional: Negative for fever,chills, and weight loss Eyes: Negative for injury, pain,redness, and discharge ENT: Negative for injury,pain or swelling Cardiovascular: Negative for chest pain, palpitations, and edema Respiratory: Negative for shortness of breath, cough, and wheezing, Abdomen/GI: Positive for abdominal distention Negative for abdominal pain, nausea, vomiting, diarrhea, and constipation Back: Negative for injury and pain : Negative for injury, bleeding and discharge MS/Extremity: Negative for injury and deformity Skin: Negative for rash, and discoloration Neuro: Negative for headache, weakness, numbness, tingling, and seizure Psych: Negative for suicide ideation, homicidal ideation, and hallucinations Initial Vital Sign VS Vital Signs Date Time Temp Pulse Resp B/P (MAP) Pulse Ox O2 Delivery O2 Flow Rate FiO2 06/30/24 09:53 97.0 122 20 134/102 98 Room Air 0 06/30/24 10:40 21 Physical Exam Dictation General: awake, alert, NAD Head/Face: Normocephalic, atraumatic Eyes: PERRL, EOMI, vision at baseline ENT: oral cavity clear, TMs clear, no signs of infection Neck: Trachea midline, supple, no nuchal rigidity Cardiovascular: Tachycardic, No MRGs, no JVD Respiratory: CTAB, no respiratory distress, No rales or wheezes Abdomen: Soft, non-tender, moderate distention, normal bowel sounds, no guarding or rebound. Skin: Warm, dry, normal turgor, no rash MS/Extremity: Pulses equal, no cyanosis, neurovascular intact, FROM Neuro: COAx4, GCS 15, strength 5/5, CN 2-12 intact, normal cerebellar exam, normal gait, Psych: Normal behavior, mood, and affect normal Results (Laboratory/Radiology) Laboratory/Radiology Laboratory Tests Test 06/30/24 10:17 06/30/24 10:35 White Blood Count 5.4 K/uL (4.8-10.8) Red Blood Count 4.39 MIL/uL (4.50-6.20) L Hemoglobin 11.4 g/dL (14.0-18.0) L Hematocrit 35.7 % (42-54) L Mean Corpuscular Volume 81.3 fL (79-99) Mean Corpuscular Hemoglobin 26.0 pg (27.0-33.0) L Mean Corpuscular Hemoglobin Concent 31.9 g/dL (32.0-36.0) L Red Cell Distribution Width 16.3 % (11.0-15.5) H Platelet Count 214 K/uL (130-400) Mean Platelet Volume 10.7 fL (7.5-10.5) H Immature Granulocyte % (Auto) 0.4 % (0-1) Neutrophils (%) (Auto) 75.6 % (40.0-77.0) Lymphocytes (%) (Auto) 13.8 % (21.0-51.0) L Monocytes (%) (Auto) 9.6 % (3.0-13.0) Eosinophils (%) (Auto) 0.2 % (0.0-8.0) Basophils (%) (Auto) 0.4 % (0.0-5.0) Neutrophils # (Auto) 4.1 K/uL (1.8-7.7) Lymphocytes # (Auto) 0.8 K/uL (1.0-4.8) L Monocytes # (Auto) 0.5 K/uL (0.1-1.0) Eosinophils # (Auto) 0.01 K/uL (0.00-0.70) Basophils # (Auto) 0.02 K/uL (0.00-0.20) Absolute Immature Granulocyte (auto 0.02 K/uL (0-1) Nucleated Red Blood Cells 0.0 % (0.0-0.19) Prothrombin Time 11.8 SEC (9.6-11.6) H Prothromb Time International Ratio 1.06 (0.85-1.15) Activated Partial Thromboplast Time 26.5 SEC (26.3-35.5) Troponin I High Sensitivity 10 ng/L (4-75) Sodium Level 131 mmol/L (136-145) L Potassium Level 5.3 mmol/L (3.5-5.1) H Chloride Level 96 mmol/L (101-111) L Carbon Dioxide Level 30 mmol/L (21-32) Blood Urea Nitrogen 23 mg/dL (7-18) H Creatinine 1.0 mg/dL (0.5-1.3) Glomerular Filtration Rate Calc 87 mL/min (>90) Random Glucose 172 mg/dL (70-105) H Total Calcium 7.9 mg/dL (8.5-10.1) L Total Bilirubin 0.6 mg/dL (0.2-1.0) Direct Bilirubin < 0.1 mg/dL (0.0-0.3) Aspartate Amino Transf (AST/SGOT) 84 U/L (10-37) H Alanine Aminotransferase (ALT/SGPT) 23 U/L (12-78) Alkaline Phosphatase 158 U/L (50-136) H Total Protein 7.1 g/dL (6.0-8.3) Albumin 2.0 g/dL (3.5-5.0) L Labs Reviewed?: Yes EKG Comment: EKG 06/30/2024 time 10:16 a.m. ventricular rate 117, RI 150, QRS D 82, QT 338. Sinus tachycardia, extensive anterior infarct, old. No STEMI Ultrasound Comment: REASON: ASCITES ORDERING PHYSICIAN: PEREZ FITZGERALD MD PROCEDURE: PARA ABD - US ABDOMINAL PARACENTESIS IR US ABDOMINAL PARACENTESIS IR REASON: ASCITES TECHNIQUE: Paracentesis was performed with ultrasound guidance. The puncture site was selected in the Right lower quadrant and overlying skin prepped and draped in a sterile fashion. 1% Xylocaine infiltration was performed. Catheter was placed in the fluid using trocar technique. 15 L were removed. Fluid sample was submitted for laboratory evaluation. The patient showed no evidence of complication during the procedure. IMPRESSION: 1. Ultrasound-guided paracentesis. DICTATED BY: JASVIR SHELLEY MD DATE: 06/30/24 1315 ED Course ED Course Orders Procedure Category Date Status Time Cbc With Differential LAB 06/30/24 Complete 10:03 Pt And Ptt LAB 06/30/24 Complete 10:03 12 Lead Ekg Tracing- EKG 06/30/24 Complete Technical 10:04 Troponin I High LAB 06/30/24 Complete Sensitivity 10:04 Us Abdominal US 06/30/24 Resulted Paracentesis Ir 10:08 Basic Metabolic Panel LAB 06/30/24 Complete 10:29 Hepatic Function Panel LAB 06/30/24 Complete 10:29 Albumin Human 25% PHA 06/30/24 Complete (Alb[place]in) 11:53 Current Medications Medications (Trade) Dose Ordered Sig/Maciej Route PRN Reason Start Time Stop Time Status Last Admin Dose Admin Albumin Human 200 ml @ As Directed STK-MED ONCE IV 06/30/24 11:53 06/30/24 11:54 DC Vital Signs Date Time Temp Pulse Resp B/P (MAP) Pulse Ox O2 Delivery O2 Flow Rate FiO2 06/30/24 13:47 97.5 116 20 120/62 100 Room Air* 0 21 06/30/24 12:56 97.0 104 20 142/80 98 Room Air* 0 21 06/30/24 11:05 97.0 112 20 138/98 98 Room Air* 0 06/30/24 10:40 97.0 122 20 134/102 98 Room Air* 0 06/30/24 09:53 97.0 122 20 134/102 98 Room Air 0 Medical Decision Making MDM MDM: Differential diagnosis: Fluid overload, ascites, abdominal distention Rationale: Tests considered and ordered secondary to shared decision making include: labs, ECG and radiology Risk of complication and/or morbidity or mortality of patient management: None Medications-Per medication reconciliation Need for hospitalization: Patient does not meet criteria for hospitalization. Need for emergency major/minor surgery: No There are no social concerns with this patient. I independently interpreted the test that were performed, results were reviewed by me and considered findings on radiology if ordered. DX & DISP Disposition: Discharge Departure Impression: Primary Impression: Abdominal distention Additional Impression: Abdominal ascites Condition: Stable Referrals: SELF,REFERRAL (PCP) PEREZ FITZGERALD MD Jun 30, 2024 10:58
[2024-06-30 11:05] LABS: ALANINE AMINOTRANSFERASE 23 U/L (12-78); ASPARTATE AMINOTRANSFERASE 84 U/L (10-37); BILIRUBIN,DIRECT < 0.1 mg/dL (0.0-0.3); BILIRUBIN,TOTAL 0.6 mg/dL (0.2-1.0); CARBON DIOXIDE 30 mmol/L (21-32); CHLORIDE 96 mmol/L (101-111); GLOMERULAR FILTR. RATE CALC 87 mL/min (>90); GLUCOSE,RANDOM 172 mg/dL (70-105); POTASSIUM 5.3 mmol/L (3.5-5.1); SODIUM SERUM 131 mmol/L (136-145); TOTAL PROTEIN, SERUM 7.1 g/dL (6.0-8.3); UREA NITROGEN, BLOOD 23 mg/dL (7-18)
--- NOTE | 2024-06-30 11:24 | NUR ---
PT IS LEACING FOR PARACENTESIS.CONSENT SIGNED.
[2024-06-30] MEDS ORDERED: ALBUMIN HUMAN 25% 200 ML IV ONE (11:53)
--- NOTE | 2024-06-30 12:14 | NUR ---
CALL FROM US,PARACENTESIS COMPLETED,15 L FLUID REMOVE FROM THE RUQ.DRESSING INTACT. 2/2 ALBUMIN IS INFUSING.
--- NOTE | 2024-06-30 12:30 | NUR ---
U/S GD PARACENTESIS TOLERATED PROCEDURE. PERFORMED BY DR Alysia SHELLEY. PUNCTURE SITE TO RLQ. 15.0 LITERS OF YELLOW CLOUDY ASCITES FLUID REMOVED. ALBUMIN 25% 50 GRAMS GIVEN IV PER PROTOCOL. END OF PROCEDURE AT 1210. DRESSING DRY AND INTACT. NO BLEEDING NOTED. REPORT GIVEN TO Jagdeep RICHARD RN. TRANSPORTED TO ED VIA STRETCHER. A&O. DENIES PAIN.
--- NOTE | 2024-06-30 12:35 | NUR ---
RETURNED FROM PARACENTESIS.
--- NOTE | 2024-06-30 13:17 | HMCIMG ---
US ABDOMINAL PARACENTESIS IR REASON: ASCITES TECHNIQUE: Paracentesis was performed with ultrasound guidance. The puncture site was selected in the Right lower quadrant and overlying skin prepped and draped in a sterile fashion. 1% Xylocaine infiltration was performed. Catheter was placed in the fluid using trocar technique. 15 L were removed. Fluid sample was submitted for laboratory evaluation. The patient showed no evidence of complication during the procedure. IMPRESSION: 1. Ultrasound-guided paracentesis.
[2024-06-30 14:50] VITALS: BP 109/57; PULSE 98; RESP 18; TEMP 97.6; O2SAT 99
== END 2024-06-30 14:58 | disposition home or self-care (01) ==
LOC: EDH 09:52
DX: R18.8 Other ascites (principal); R14.0 Abdominal distension (gaseous); E11.9 Type 2 diabetes mellitus without complications; I10 Essential (primary) hypertension; Z79.899 Other long term (current) drug therapy; Z91.030 Bee allergy status
CPT/HCPCS: 49083; 99285; 96365; 80076; 84484; 80048; 85025; 85610; 85730; 36415; 93005; P9046; C1729

== ENCOUNTER → 2024-07-15 | Emergency (ER) | payer SELFPAY ==
[~2024-07-15] VITALS: Ht 162.6 cm; Wt 63.5 kg
[~2024-07-15] MED LIST changes: +CLIN-141 PO
[2024-07-15 08:08] VITALS: BP 129/87; PULSE 91; RESP 14; TEMP 97.7; O2SAT 100
--- NOTE | 2024-07-15 08:09 | ERN ---
General Chief Complaint: Abdominal Pain Stated Complaint: SEEKING PARACENTESIS Time Seen by MD: 07:41 Source: patient History of Present Illness Initial Comments Patient is a 58-year-old gentleman with a history of liver cirrhosis she was coming in to be evaluated for abdominal distention. Per patient he was here for a paracentesis. Patient states he was not short of breath but it was noticed his abdomen swelling up. Allergies: Coded Allergies: bee venom protein (honey bee) (Unverified Allergy, Unknown, 06/30/24) Home Meds Active Scripts Azithromycin (Azithromycin) 500 Mg Tablet, 1 TAB PO DAILY for 5 Days, #5 TAB 0 Refills Prov:STIVEN CRAWLEY EDITHLIZETH 05/12/24 Spironolactone (Spironolactone) 25 Mg Tablet, 25 MG PO BID, #60 TAB 0 Refills Prov:CRAWLEYSTIVEN EDITHLIZETH 02/19/24 Propranolol HCl (Inderal) 10 Mg Tab, 10 MG PO DAILY, #30 TAB 0 Refills Prov:MISBAHSTIVEN Luis SHARMALIZETH 02/19/24 Pantoprazole Sodium (Protonix) 40 Mg Tablet.dr, 40 MG PO BID, #60 TAB 0 Refills Prov:CRAWLEYSTIVEN [facility]ST[facility] 02/19/24 Multivitamins,Therapeutic (Multivitamin Tablet) 400 Mcg Tab, 1 TAB PO DAILY, #30 TAB 0 Refills Prov:STIVEN CRAWLEY EDITHLIZETH 02/19/24 Lactulose (Cephulac/Enulose Soln) 20 Gram/30 Ml Soln, 20 GM PO DAILY, #1 BOTTLE Prov:CRAWLEYSTIVEN Luis SHARMALIZETH 02/19/24 Furosemide (Lasix 20Mg Tab) 20 Mg Tablet, 20 MG PO DAILY, #30 TAB Prov:CRAWLEYSTIVEN EDITHNP 02/19/24 Past Medical History Past Medical History: Anemia, Diabetes-Type II, Hypertension, Liver Disease, Renal Failure Past Surgical History: None ROS Dictation CONSTITUTIONAL: No chills, no fever, no weakness, no diaphoresis, no malaise. HEAD/FACE: No signs of trauma. EENT: No eye pain, no blurred vision, no tearing, no double vision, no ear pain, no ear discharge, no nose pain, no nasal congestion, no throat pain, no throat swelling, no mouth pain. RESPIRATORY: No cough, no orthopnea, no SOB, no stridor, no wheezing. CARDIOVASCULAR: No chest pain, no edema, no palpitations, no syncope. GASTROINTESTINAL/ABDOMINAL: No abdominal pain, no constipation, no diarrhea, no nausea, no vomiting. GENITOURINARY: No abnormal discharge, no dysuria, no frequent urination, no hematuria. No complaints of pain in the genitals. MUSCULOSKELETAL: No back pain, no gout, no joint pain, no joint swelling, no muscle pain, no muscle stiffness, no neck pain. INTEGUMENTARY: No change in color, no change in hair/nails, no dryness, no lesion, no lumps, no rash. NEUROLOGICAL/PSYCH: No anxiety, not depressed, no emotional problem, no headache, no numbness, no pre-existing deficit, no history of seizures, no tremors, no weakness. HEMATOLOGIC/LYMPHATIC: Not anemic, no history of blood clots, no apparent bleeding, no bruising, glands not swollen. All Systems Negative, Except as Noted. Physical Exam Physical Exam Dictation VITAL SIGNS: Reviewed. GENERAL APPEARANCE: Alert, oriented x3, no acute distress, obese. HEAD AND FACE: Non-traumatic. EYES: PERRL, pink conjunctivas, eyelid no trauma, anterior chamber clear. EARS: Pinnas intact and no signs of trauma or erythema. Ear canals clear and no discharge. TMs no erythema. NOSE: No discharge, no bleeding. OROPHARYNX: Mouth normal, teeth no caries, tongue pink. Pharynx clear, no erythema. Tonsils no exudates, no abscesses noted. Mucous membrane moist. NECK: Supple, non-tender, no thyromegaly, no masses, no JVD, no bruits. BREAST: Deferred. CHEST: No tenderness, no crepitus, no paradoxical movement, no retractions. LUNGS: Clear, well-ventilated, symmetric, no rales, no wheezing, no rhonchi, no stridor, good breath sounds bilaterally. HEART: Regular rate, regular rhythm, no murmur, no gallops. VASCULAR: No peripheral edema. ABDOMEN: Soft, positive bowel sounds, distended, no guarding, nontender, no rebound, no masses no hepatomegaly, no splenomegaly, no Colon's sign, no hernias. RECTAL: Deferred. GENITAL: Deferred. NEUROLOGICAL: Normal speech, gross motor function intact, gross sensory function intact. MUSCULOSKELETAL: Neck nontender, full range of motion, back nontender, full range of motion. EXTREMITIES: Nontender, full range of motion. SKIN: Color pink, dry, no turgor, no rash, no lacerations, no abrasions, no contusions. LYMPHATICS: Deferred. Results Laboratory and Microbiology Labs Reviewed?: Yes MDM MDM: Differential diagnosis: For cirrhosis, abdominal distention, ascites Patient is a 58-year-old gentleman with a history of liver cirrhosis coming in to have a paracentesis performed. Patient was informed that IR will not be available today and because this was not an emergent paracentesis as patient was not short of breath or any other complaint. States he would come back tomorrow for paracentesis. 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 ED Course Orders Procedure Category Date Status Time Ir Radiology RAD 07/15/24 Logged Procedure Request 07:43 Cbc With Differential LAB 07/15/24 Logged 07:43 Basic Metabolic Panel LAB 07/15/24 Logged 07:43 Vital Signs Date Time Temp Pulse Resp B/P (MAP) Pulse Ox O2 Delivery O2 Flow Rate FiO2 07/15/24 07:38 97.7 100 14 131/99 98 Room Air 0 DX & DISP Disposition: Discharge Departure Impression: Primary Impression: Abdominal ascites Additional Impressions: Abdominal distention, Cirrhosis Condition: Stable Additional Instructions: FOLLOW-UP WITH PRIMARY CARE PROVIDER IN 1 TO 2 DAYS. TAKE MEDICATIONS DIRECTED HERE IN THE EMERGENCY ROOM. OKAY TO CONTINUE HOME MEDICATIONS UNLESS OTHERWISE DISCUSSED DURING YOUR VISIT IN THE EMERGENCY ROOM TODAY. RETURN TO Y OUR NEAREST EMERGENCY ROOM IF SYMPTOMS WORSEN OR IF THERE IS NO IMPROVEMENT. CALL 911 IF YOU NEED IMMEDIATE ASSISTANCE. TAKE TYLENOL [id number] NEEDED AND IF NO CONTRAINDICATIONS ARE PRESENT. INCREASE ORAL HYDRATION. A WOUND CULTURE OR URINE CULTURE WAS ORDERED HERE IN THE EMERGENCY ROOM DEPARTMENT PLEASE FOLLOW-UP WITH PRIMARY CARE PROVIDER AND ADVISE THEM TO GET REPEAT PORTS FROM OUR FACILITY. IF YOU HAD ANY RAYNE WRAP/SPLINTS THAT WERE APPLIED HERE, PLEASE DO NOT REMOVE THEM UNTIL YOU SEE YOUR PRIMARY CARE OR SPECIALTY. Referrals: Referrals: SELF,REFERRAL (PCP) STEW FRAUSTO MD, LUIS A MD Time of Disposition: 08:08 CHUY HIGUERA MD Jul 15, 2024 08:09
--- NOTE | 2024-07-15 08:10 | NUR ---
DIACHARGED AT THIS TIME HOWEVER UNABLE TO DEPART ON [place] DUE TO [employer] STAFF ON ACCOUNT.
== END ==
LOC: EDH 07:37
DX: R18.8 Other ascites (principal); R14.0 Abdominal distension (gaseous); K74.60 Unspecified cirrhosis of liver; E11.9 Type 2 diabetes mellitus without complications; I10 Essential (primary) hypertension; Z79.899 Other long term (current) drug therapy; Z91.030 Bee allergy status
CPT/HCPCS: 99282

== ENCOUNTER 2024-07-16 07:42 | Emergency (ER) | payer SELFPAY ==
[~2024-07-16] VITALS: Ht 162.6 cm; Wt 63.5 kg
[~2024-07-16 07:42] MED LIST changes: -CLIN-141 PO
--- NOTE | 2024-07-16 07:50 | NUR ---
PATIENT IS PLACED IN TO ER 05 NOW.
--- NOTE | 2024-07-16 08:40 | NUR ---
PT IS TAKEN FOR PARACENTESIS.
[2024-07-16] MEDS ORDERED: ALBUMIN HUMAN 25% 200 ML IV ONE (08:59)
--- NOTE | 2024-07-16 09:30 | NUR ---
U/S GD PARACENTESIS PERFORMED BY DR Abdiaziz NICHOLSON. TOLERATED PROCEDURE. PUNCTURE SITE TO RLQ. 15.0 LITERS OF YELLOW CLOUDY FLUID REMOVED. ALBUMIN 25% 50 GRAMS GIVEN IV PER PROTOCOL. END OF PROCEDURE AT 0910. DRESSING DRY AND INTACT. NO BLEEDING NOTED. REPORT GIVEN TO SHANNAN PITTMAN. TRANSPORT TO ED VIA STRETCHER. DENIES PAIN. A&O.
--- NOTE | 2024-07-16 09:35 | NUR ---
PT RETURNED FROM PARACENTESIS.15 L FLUID REMOVED FROM RLQ,DRESING DRY & INTACT. 50 G ALBUMIN GIVEN.
[2024-07-16 09:58] LABS: BASOPHILS # (AUTO) 0.03 K/uL (0.00-0.20); BASOPHILS % (AUTO) 0.5 % (0.0-5.0); EOSINOPHILS # (AUTO) 0.03 K/uL (0.00-0.70); EOSINOPHILS % (AUTO) 0.5 % (0.0-8.0); IMMATURE GRANULOCYTE ABSOLUTE 0.02 K/uL (0-1); LYMPHOCYTES # (AUTO) 0.8 K/uL (1.0-4.8); LYMPHOCYTES % (AUTO) 14.5 % (21.0-51.0); MEAN CORPUSCULAR HEMOGLOBIN 25.1 pg (27.0-33.0); MEAN CORPUSCULAR HGB CONC 30.9 g/dL (32.0-36.0); MONOCYTES # (AUTO) 0.5 K/uL (0.1-1.0); MONOCYTES % (AUTO) 8.1 % (3.0-13.0); NEUTROPHILS # (AUTO) 4.4 K/uL (1.8-7.7); NEUTROPHILS % (AUTO) 76.1 % (40.0-77.0); PLATELET COUNT (AUTO) 167 K/uL (130-400); RED BLOOD CELL COUNT(AUTO) 3.95 MIL/uL (4.50-6.20); RED CELL DISTRIBUTION WIDTH 18.2 % (11.0-15.5); WHITE BLOOD COUNT (AUTO) 5.8 K/uL (4.8-10.8)
[2024-07-16 10:10] LABS: CREATININE 1.1 mg/dL (0.5-1.3); POTASSIUM 4.3 mmol/L (3.5-5.1)
[2024-07-16 10:14] LABS: ALBUMIN 3.8 g/dL (3.5-5.0); BILIRUBIN,DIRECT 0.3 mg/dL (0.0-0.3); BILIRUBIN,TOTAL 0.6 mg/dL (0.2-1.0); TOTAL PROTEIN, SERUM 7.7 g/dL (6.0-8.3)
[2024-07-16 10:20] LABS: B-TYPE NATRIURETIC PEPTIDE 80 pg/mL (0-100)
--- NOTE | 2024-07-16 10:26 | ERN ---
ED Note History of Present Illness Stated Complaint: ABDOMINAL DISTENTION, BILATERAL FEET WOUNDS Chief Complaint: Abdominal Pain Time Seen by MD: 08:08 Dictation: 58-year-old male with a history liver cirrhosis presents to the ED for evaluation of abdominal distention. Patient reports bilateral foot swelling and SOB, but denies any chest pain or any other associated symptoms at this time. Patient states he usually comes here to get paracentesis. Allergies: Coded Allergies: bee venom protein (honey bee) (Unverified Allergy, Unknown, 06/30/24) Home Meds Active Scripts Clindamycin HCl (Clindamycin HCl) 300 Mg Capsule, 1 CAP PO QID for 10 Days, #40 CAP 0 Refills Prov:PEREZ FITZGERALD MD 07/16/24 Azithromycin (Azithromycin) 500 Mg Tablet, 1 TAB PO DAILY for 5 Days, #5 TAB 0 Refills Prov:STIVEN CRAWLEY 05/12/24 Spironolactone (Spironolactone) 25 Mg Tablet, 25 MG PO BID, #60 TAB 0 Refills Prov:STIVEN CRAWLEY 02/19/24 Propranolol HCl (Inderal) 10 Mg Tab, 10 MG PO DAILY, #30 TAB 0 Refills Prov:STIVEN CRAWLEYLIZETH 02/19/24 Pantoprazole Sodium (Protonix) 40 Mg Tablet.dr, 40 MG PO BID, #60 TAB 0 Refills Prov:STIVEN CRAWLEYLIZETH 02/19/24 Multivitamins,Therapeutic (Multivitamin Tablet) 400 Mcg Tab, 1 TAB PO DAILY, #30 TAB 0 Refills Prov:STIVEN CRAWLEYLIZETH 02/19/24 Lactulose (Cephulac/Enulose Soln) 20 Gram/30 Ml Soln, 20 GM PO DAILY, #1 BOTTLE Prov:STIVEN CRAWLEYLIZETH 02/19/24 Furosemide (Lasix 20Mg Tab) 20 Mg Tablet, 20 MG PO DAILY, #30 TAB Prov:STIVEN CRAWLEY 02/19/24 Past Medical History Past Medical History: Anemia, Diabetes-Type II, Hypertension, Liver Disease, Renal Failure Surgical History: None Review of System Dictation Constitutional: Negative for fever,chills, and weight loss Eyes: Negative for injury, pain,redness, and discharge ENT: Negative for injury,pain or swelling Cardiovascular: Negative for chest pain, palpitations, and edema Respiratory: Positive for shortness of breath negative for cough, and wheezing, Abdomen/GI: Positive for abdominal distention negative for nausea, vomiting, diarrhea, and constipation Back: Negative for injury and pain : Negative for injury, bleeding and discharge MS/Extremity: Positive for bilateral foot swelling Negative for injury and deformity Skin: Negative for rash, and discoloration Neuro: Negative for headache, weakness, numbness, tingling, and seizure Psych: Negative for suicide ideation, homicidal ideation, and hallucinations Initial Vital Sign VS Vital Signs Date Time Temp Pulse Resp B/P (MAP) Pulse Ox O2 Delivery O2 Flow Rate FiO2 07/16/24 07:43 97.0 120 22 142/106 99 Room Air 0 07/16/24 08:00 21 Physical Exam Dictation General: awake, alert, NAD Head/Face: Normocephalic, atraumatic Eyes: PERRL, EOMI, vision at baseline ENT: oral cavity clear, TMs clear, no signs of infection Neck: Trachea midline, supple, no nuchal rigidity Cardiovascular: RRR, normal S1/S2, No MRGs, no JVD Respiratory: CTAB, no respiratory distress, No rales or wheezes Abdomen: Moderate distention, normal bowel sounds, no guarding or rebound. Skin: Warm, dry, normal turgor, no rash MS/Extremity: Pulses equal, neurovascular intact, bilateral lower extremity edema with erythema between toes, chronic cellulitis Neuro: COAx4, GCS 15, strength 5/5, CN 2-12 intact, normal cerebellar exam, normal gait, Psych: Normal behavior, mood, and affect normal Results (Laboratory/Radiology) Laboratory/Radiology Laboratory Tests Test 07/16/24 09:49 White Blood Count 5.8 K/uL (4.8-10.8) Red Blood Count 3.95 MIL/uL (4.50-6.20) L Hemoglobin 9.9 g/dL (14.0-18.0) L Hematocrit 32.0 % (42-54) L Mean Corpuscular Volume 81.0 fL (79-99) Mean Corpuscular Hemoglobin 25.1 pg (27.0-33.0) L Mean Corpuscular Hemoglobin Concent 30.9 g/dL (32.0-36.0) L Red Cell Distribution Width 18.2 % (11.0-15.5) H Platelet Count 167 K/uL (130-400) Mean Platelet Volume 9.0 fL (7.5-10.5) Immature Granulocyte % (Auto) 0.3 % (0-1) Neutrophils (%) (Auto) 76.1 % (40.0-77.0) Lymphocytes (%) (Auto) 14.5 % (21.0-51.0) L Monocytes (%) (Auto) 8.1 % (3.0-13.0) Eosinophils (%) (Auto) 0.5 % (0.0-8.0) Basophils (%) (Auto) 0.5 % (0.0-5.0) Neutrophils # (Auto) 4.4 K/uL (1.8-7.7) Lymphocytes # (Auto) 0.8 K/uL (1.0-4.8) L Monocytes # (Auto) 0.5 K/uL (0.1-1.0) Eosinophils # (Auto) 0.03 K/uL (0.00-0.70) Basophils # (Auto) 0.03 K/uL (0.00-0.20) Absolute Immature Granulocyte (auto 0.02 K/uL (0-1) Nucleated Red Blood Cells 0.0 % (0.0-0.19) Red Blood Cell Morphology See comments Sodium Level 132 mmol/L (136-145) L Potassium Level 4.3 mmol/L (3.5-5.1) Chloride Level 96 mmol/L (101-111) L Carbon Dioxide Level 30 mmol/L (21-32) Blood Urea Nitrogen 25 mg/dL (7-18) H Creatinine 1.1 mg/dL (0.5-1.3) Glomerular Filtration Rate Calc 77 mL/min (>90) Random Glucose 133 mg/dL (70-105) H Lactic Acid Level 1.3 mmol/L (0.8-2.5) Total Calcium 9.5 mg/dL (8.5-10.1) Total Bilirubin 0.6 mg/dL (0.2-1.0) Direct Bilirubin 0.3 mg/dL (0.0-0.3) Aspartate Amino Transf (AST/SGOT) 36 U/L (10-37) Alanine Aminotransferase (ALT/SGPT) 25 U/L (12-78) Alkaline Phosphatase 142 U/L (50-136) H Troponin I High Sensitivity 9 ng/L (4-75) B-Type Natriuretic Peptide 80 pg/mL (0-100) Total Protein 7.7 g/dL (6.0-8.3) Albumin 3.8 g/dL (3.5-5.0) Labs Reviewed?: Yes ED Course ED Course Orders Procedure Category Date Status Time 12 Lead Ekg Tracing- EKG 07/16/24 Logged Technical 08:15 B-Type Natriuretic LAB 07/16/24 Complete Peptide 08:15 Basic Metabolic Panel LAB 07/16/24 Complete 08:15 Cbc With Differential LAB 07/16/24 Complete 08:15 Hepatic Function Panel LAB 07/16/24 Complete 08:15 Lactic Acid LAB 07/16/24 Complete 08:15 Troponin I High LAB 07/16/24 Complete Sensitivity 08:15 Chest 1vw RAD 07/16/24 Taken 08:15 Us Abdominal US 07/16/24 Taken Paracentesis Ir 08:22 Albumin Human 25% PHA 07/16/24 Complete ([place]) 08:59 Albumin Human 25% PHA 07/16/24 Complete ([place]) 09:30 Current Medications Medications (Trade) Dose Ordered Sig/Maciej Route PRN Reason Start Time Stop Time Status Last Admin Dose Admin Albumin Human 200 ml @ As Directed STK-MED ONCE IV 07/16/24 08:59 07/16/24 09:00 DC Albumin Human 200 ml @ 0 mls/hr ONCE ONCE IV 07/16/24 09:30 07/16/24 09:31 DC Vital Signs Date Time Temp Pulse Resp B/P (MAP) Pulse Ox O2 Delivery O2 Flow Rate FiO2 07/16/24 10:44 97.3 102 20 114/72 96 Room Air* 0 21 07/16/24 09:35 97.0 82 20 108/77 99 Room Air* 0 21 07/16/24 08:00 97.0 107 20 138/97 96 Room Air* 0 21 07/16/24 07:43 97.0 120 22 142/106 99 Room Air 0 Medical Decision Making MDM MDM: Differential diagnosis: abdominal ascites, fluid overload, cellulitis of feet Risk of complication and/or morbidity or mortality of patient management: None Medications-Per medication reconciliation Need for hospitalization: Patient does not meet criteria for hospitalization. Need for emergency major/minor surgery: No There are no social concerns with this patient. Prescription drug management Prescriptions will include symptomatic care Patient's prior external medical records from other ER visits were reviewed by me as indicated. Prior testing and results from previous visits were reviewed. Prior tests were taken into account with medical decision making and resource utilization, independent historian/historians were used to obtain complete medical history. I independently interpreted the test that were performed, results were reviewed by me and considered findings on radiology if ordered. DX & DISP Disposition: Discharge Departure Impression: Primary Impression: Abdominal ascites Additional Impression: Cellulitis of both feet Condition: Stable Scripts Clindamycin HCl (Clindamycin HCl) 300 Mg Capsule 1 CAP PO QID for 10 Days, #40 CAP 0 Refills Prov: PEREZ FITZGERALD MD 07/16/24 Referrals: SELF,REFERRAL (PCP) PEREZ FITZGERALD MD Jul 16, 2024 10:26
[2024-07-16] MEDS: ALBUMIN HUMAN 25% 200 ML IV ONE (10:59)
[2024-07-16] MEDS ORDERED: CLIN-141 PO (11:07)
[2024-07-16 11:54] VITALS: BP 111/73; PULSE 114; RESP 18; TEMP 97.3; O2SAT 96
--- NOTE | 2024-07-16 15:51 | HMCIMG ---
US ABDOMINAL PARACENTESIS IR HISTORY: Ascites COMPARISON: None TECHNIQUE: Informed consent was obtained. Risks and benefits were explained to the patient. A timeout was performed. Patient was prepped and draped in a sterile fashion. Local anesthetics was given as required. Under ultrasound guidance, ascites fluid was localized. Paracentesis was performed. FINDINGS: 15 cc of yellowish fluid was aspirated. Less than 2 cc blood loss is noted. Patient tolerated procedure without complication. Patient left the department in good condition. IMPRESSION: 1. Uncomplicated ultrasound guidance paracentesis.
--- NOTE | 2024-07-16 16:24 | HMCIMG ---
CHEST 1VW HISTORY: Shortness of breath COMPARISON: 05/07/2024 FINDINGS: A frontal projection of the chest was obtained. No acute pulmonary infiltrates is seen. The heart is borderline enlarged. Poor inspiratory effort is seen. Bibasilar linear atelectasis changes are seen. IMPRESSION: 1. No acute pulmonary infiltrate is seen.
--- NOTE | 2024-07-17 07:11 | EKG ---
[facility] Test Date: 2024-07-16 Test Time: 10:52:20 Pat Name: RALPH SHAY Department: ED Room: Gender: M Nurseryperson: [id number] : 1965 Requested By: PEREZ FITZGERALD Order Number: [id number] Reading MD: Andrey Easley Measurements Intervals [place] Rate: 109 P: 38 WI: 190 QRS: -6 QRSD: 64 T: 5 QT: 332 QTc: 448 Interpretive Statements Sinus tachycardia Low voltage, extremity leads Consider anteroseptal infarct Compared to ECG 06/30/2024 10:16:59 Low QRS voltage now present Myocardial infarct finding still present Electronically Signed On 07-17-2024 14:47:21 [employer] by Andrey Easley Please click the below link to view image of tracing.
== END 2024-07-16 12:23 | disposition home or self-care (01) ==
LOC: EDH 07:42
DX: R18.8 Other ascites (principal); L03.115 Cellulitis of right lower limb; L03.116 Cellulitis of left lower limb; E11.9 Type 2 diabetes mellitus without complications; I10 Essential (primary) hypertension; Z91.030 Bee allergy status; Z79.899 Other long term (current) drug therapy; R06.02 Shortness of breath
CPT/HCPCS: 49083; 99285; 96365; 71045; 80076; 84484; 80048; 83880; 85025; 83605; 36415; 93005; P9046; C1729

== ENCOUNTER 2024-11-06 09:14 | Emergency (ER) | payer SELFPAY ==
[~2024-11-06] VITALS: Ht 165.1 cm; Wt 68.0 kg
[~2024-11-06 09:14] MED LIST changes: +CLIN-141 PO
[2024-11-06 09:40] LABS: BASOPHILS # (AUTO) 0.06 K/uL (0.00-0.20); BASOPHILS % (AUTO) 0.8 % (0.0-5.0); EOSINOPHILS # (AUTO) 0.39 K/uL (0.00-0.70); EOSINOPHILS % (AUTO) 5.3 % (0.0-8.0); HEMATOCRIT 34.4 % (42-54); IMMATURE GRANULOCYTE ABSOLUTE 0.03 K/uL (0-1); LYMPHOCYTES # (AUTO) 1.2 K/uL (1.0-4.8); LYMPHOCYTES % (AUTO) 16.2 % (21.0-51.0); MEAN CORPUSCULAR HEMOGLOBIN 24.2 pg (27.0-33.0); MEAN CORPUSCULAR HGB CONC 29.9 g/dL (32.0-36.0); MEAN CORPUSCULAR VOLUME 80.8 fL (79-99); MONOCYTES # (AUTO) 0.7 K/uL (0.1-1.0); MONOCYTES % (AUTO) 9.5 % (3.0-13.0); NEUTROPHILS % (AUTO) 67.8 % (40.0-77.0); PLATELET COUNT (AUTO) 182 K/uL (130-400); RED BLOOD CELL COUNT(AUTO) 4.26 MIL/uL (4.50-6.20); WHITE BLOOD COUNT (AUTO) 7.3 K/uL (4.8-10.8)
[2024-11-06 09:49] LABS: INR 1.04 (0.85-1.15)
[2024-11-06 09:52] LABS: POTASSIUM 4.8 mmol/L (3.5-5.1)
[2024-11-06 10:08] LABS: PARTIAL THROMBOPLASTIN TIME 25.7 SEC (26.3-35.5)
--- NOTE | 2024-11-06 10:35 | ERN ---
General Chief Complaint: Abdominal Pain Stated Complaint: PARACENTESIS, LT INGUINAL HERNIA Time Seen by MD: 09:17 Source: patient History of Present Illness Initial Comments Patient is a 59-year-old male coming in to be evaluated for abdominal distenti on. Patient states he has a history of liver cirrhosis and frequently requires paracentesis. Patient has been having these symptoms for a couple of days. He states that when he ambulates he feels short of breath as well. Allergies: Coded Allergies: bee venom protein (honey bee) (Unverified Allergy, Unknown, 06/30/24) Home Meds Active Scripts Clindamycin HCl (Clindamycin HCl) 300 Mg Capsule, 1 CAP PO QID for 10 Days, #40 CAP 0 Refills Prov:PEREZ FITZGERALD MD 07/16/24 Azithromycin (Azithromycin) 500 Mg Tablet, 1 TAB PO DAILY for 5 Days, #5 TAB 0 Refills Prov:STIVEN CRAWLEY 05/12/24 Spironolactone (Spironolactone) 25 Mg Tablet, 25 MG PO BID, #60 TAB 0 Refills Prov:STIVEN CRAWLEYPCNP 02/19/24 Propranolol HCl (Inderal) 10 Mg Tab, 10 MG PO DAILY, #30 TAB 0 Refills Prov:STIVEN CRAWLEY 02/19/24 Pantoprazole Sodium (Protonix) 40 Mg Tablet.dr, 40 MG PO BID, #60 TAB 0 Refills Prov:STIVEN CRAWLEYPCNP 02/19/24 Multivitamins,Therapeutic (Multivitamin Tablet) 400 Mcg Tab, 1 TAB PO DAILY, #30 TAB 0 Refills Prov:STIVEN CRAWLEYPCLIZETH 02/19/24 Lactulose (Cephulac/Enulose Soln) 20 Gram/30 Ml Soln, 20 GM PO DAILY, #1 BOTTLE Prov:STIVEN CRAWELYPCNP 02/19/24 Furosemide (Lasix 20Mg Tab) 20 Mg Tablet, 20 MG PO DAILY, #30 TAB Prov:STIVEN CRAWLEYPCNP 02/19/24 Past Medical History Past Medical History: Anemia, Diabetes-Type II, Hypertension, Liver Disease, Renal Failure Past Surgical History: Other 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 HEAD/FACE: No signs of trauma. EENT: No eye pain, no blurred vision, no tearing, no double vision, no ear pain, no ear discharge, no nose pain, no nasal congestion, no throat pain, no throat swelling, no mouth pain. RESPIRATORY: No cough, no orthopnea, SOB, no stridor, no wheezing. CARDIOVASCULAR: No chest pain, no edema, no palpitations, no syncope. GASTROINTESTINAL/ABDOMINAL: No abdominal pain, no constipation, no diarrhea, no nausea, no vomiting. GENITOURINARY: No abnormal discharge, no dysuria, no frequent urination, no hematuria. No complaints of pain in the genitals. MUSCULOSKELETAL: No back pain, no gout, no joint pain, no joint swelling, no muscle pain, no muscle stiffness, no neck pain. INTEGUMENTARY: No change in color, no change in hair/nails, no dryness, no lesion, no lumps, no rash. NEUROLOGICAL/PSYCH: No anxiety, not depressed, no emotional problem, no headache, no numbness, no pre-existing deficit, no history of seizures, no tremors, no weakness. HEMATOLOGIC/LYMPHATIC: Not anemic, no history of blood clots, no apparent bleeding, no bruising, glands not swollen. All Systems Negative, Except as Noted. Physical Exam Physical Exam Dictation VITAL SIGNS: Reviewed. GENERAL APPEARANCE: Alert, oriented x3, no acute distress, obese. HEAD AND FACE: Non-traumatic. EYES: PERRL, pink conjunctivas, eyelid no trauma, anterior chamber clear. EARS: Pinnas intact and no signs of trauma or erythema. Ear canals clear and no discharge. TMs no erythema. NOSE: No discharge, no bleeding. OROPHARYNX: Mouth normal, teeth no caries, tongue pink. Pharynx clear, no erythema. Tonsils no exudates, no abscesses noted. Mucous membrane moist. NECK: Supple, non-tender, no thyromegaly, no masses, no JVD, no bruits. BREAST: Deferred. CHEST: No tenderness, no crepitus, no paradoxical movement, no retractions. LUNGS: Clear, well-ventilated, symmetric, no rales, no wheezing, no rhonchi, no stridor, good breath sounds bilaterally. HEART: Regular rate, regular rhythm, no murmur, no gallops. VASCULAR: No peripheral edema. ABDOMEN: Soft, positive bowel sounds, distended, no guarding, nontender, no rebound, no masses no hepatomegaly, no splenomegaly, no Colon's sign, no hernias. RECTAL: Deferred. GENITAL: Deferred. NEUROLOGICAL: Normal speech, gross motor function intact, gross sensory function intact. MUSCULOSKELETAL: Neck nontender, full range of motion, back nontender, full range of motion. EXTREMITIES: Nontender, full range of motion. SKIN: Color pink, dry, no turgor, no rash, no lacerations, no abrasions, no contusions. LYMPHATICS: Deferred. Results Laboratory and Microbiology Lab and Micro Result Laboratory Tests Test 11/06/24 09:34 White Blood Count 7.3 K/uL (4.8-10.8) Red Blood Count 4.26 MIL/uL (4.50-6.20) L Hemoglobin 10.3 g/dL (14.0-18.0) L Hematocrit 34.4 % (42-54) L Mean Corpuscular Volume 80.8 fL (79-99) Mean Corpuscular Hemoglobin 24.2 pg (27.0-33.0) L Mean Corpuscular Hemoglobin Concent 29.9 g/dL (32.0-36.0) L Red Cell Distribution Width 18.0 % (11.0-15.5) H Platelet Count 182 K/uL (130-400) Mean Platelet Volume 8.9 fL (7.5-10.5) Immature Granulocyte % (Auto) 0.4 % (0-1) Neutrophils (%) (Auto) 67.8 % (40.0-77.0) Lymphocytes (%) (Auto) 16.2 % (21.0-51.0) L Monocytes (%) (Auto) 9.5 % (3.0-13.0) Eosinophils (%) (Auto) 5.3 % (0.0-8.0) Basophils (%) (Auto) 0.8 % (0.0-5.0) Neutrophils # (Auto) 5.0 K/uL (1.8-7.7) Lymphocytes # (Auto) 1.2 K/uL (1.0-4.8) Monocytes # (Auto) 0.7 K/uL (0.1-1.0) Eosinophils # (Auto) 0.39 K/uL (0.00-0.70) Basophils # (Auto) 0.06 K/uL (0.00-0.20) Absolute Immature Granulocyte (auto 0.03 K/uL (0-1) Nucleated Red Blood Cells 0.0 % (0.0-0.19) Red Blood Cell Morphology See comments Prothrombin Time 11.0 SEC (9.6-11.6) Prothromb Time International Ratio 1.04 (0.85-1.15) Activated Partial Thromboplast Time 25.7 SEC (26.3-35.5) L Sodium Level 131 mmol/L (136-145) L Potassium Level 4.8 mmol/L (3.5-5.1) Chloride Level 102 mmol/L (101-111) Carbon Dioxide Level 22 mmol/L (21-32) Blood Urea Nitrogen 29 mg/dL (7-18) H Creatinine 1.0 mg/dL (0.5-1.3) Glomerular Filtration Rate Calc 86 mL/min (>90) Random Glucose 124 mg/dL (70-105) H Total Calcium 8.4 mg/dL (8.5-10.1) L Labs Reviewed?: Yes MDM MDM: Differential diagnosis: Liver cirrhosis, ascites, status post paracentesis, Rationale: Tests considered and ordered secondary to shared decision making include: Previous outside records reviewed: Old ER visits. Risk of complication and/or morbidity or mortality of patient management: None Medications-Per medication reconciliation Patient is a 59-year-old male coming in to be evaluated for abdominal distention. Patient has a history of liver cirrhosis with a ascites formation. Patient has a paracentesis and will be discharged in stable condition. ED Course Orders Procedure Category Date Status Time Cbc With Differential LAB 11/06/24 Complete 09:22 Basic Metabolic Panel LAB 11/06/24 Complete 09:22 Us Abdominal US 11/06/24 Taken Paracentesis Ir 09:22 Pt And Ptt LAB 11/06/24 Complete 09:26 Vital Signs Date Time Temp Pulse Resp B/P (MAP) Pulse Ox O2 Delivery O2 Flow Rate FiO2 11/06/24 09:15 98.2 99 16 131/95 99 Room Air 0 DX & DISP Disposition: Discharge Departure Impression: Primary Impression: Status post abdominal paracentesis Condition: Stable Referrals: SELF,REFERRAL (PCP) STEW FRAUSTO MD Time of Disposition: 12:15 CHUY HIGUERA MD Nov 06, 2024 10:35
--- NOTE | 2024-11-06 10:44 | NUR ---
PT TRANSPORTED TO IR FOR PARACENTESIS
--- NOTE | 2024-11-06 11:34 | NUR ---
PT RETURNING FROM PARACENTESIS PROCEDURE. IR EXTRACTED 15L RLQ, DRESSED WITH 4X4 DRESSING DRY AND INTACT, V/S WNL.
--- NOTE | 2024-11-06 11:40 | NUR ---
U/S GD PARACENTESIS PROCEDURE PERFORMED BY DR NICHOLSON. PUNCTURE SITE RLQ AND PATIENT TOLERATED PROCEDURE WELL. TOTAL REMOVED 15.0 LITERS OF YELLOW CLOUDY ASCITES FLUID. END OF PROCEDURE AT 1130. CATHETER REMOVED AND DRESSING APPLIED. NO BLEEDING NOTED. REPORT GIVEN TO ZAIN VIGIL AND PATIENT TRANSPORTED TO ED 9 VIA STRETCHER. AAO X3 WITH NO C/O PAIN.
[2024-11-06 12:51] VITALS: BP 110/57; PULSE 81; RESP 20; TEMP 98.2; O2SAT 94
[2024-11-06] MEDS: ALBUMIN (HUMAN) 25% 50 ML IV ONE ×2 (12:55→12:56)
--- NOTE | 2024-11-06 14:40 | HMCIMG ---
US ABDOMINAL PARACENTESIS IR HISTORY: Paracentesis COMPARISON: None TECHNIQUE: Informed consent was obtained. Risks and benefits were explained to the patient. A timeout was performed. Patient was prepped and draped in a sterile fashion. Local anesthetics was given as required. Under ultrasound guidance, ascites fluid was localized. Paracentesis was performed. FINDINGS: 15 L of yellowish fluid was aspirated. Less than 2 cc blood loss is noted. Patient tolerated procedure without complication. Patient left the department in good condition. IMPRESSION: 1. . Uncomplicated ultrasound guidance paracentesis.
== END 2024-11-06 12:57 | disposition home or self-care (01) ==
LOC: EDH 09:14
DX: R18.8 Other ascites (principal); E11.9 Type 2 diabetes mellitus without complications; I10 Essential (primary) hypertension; Z79.899 Other long term (current) drug therapy; Z91.030 Bee allergy status
CPT/HCPCS: 49083; 99285; 96374; 80048; 85025; 85610; 85730; 36415; P9047; C1729; 99283

== ENCOUNTER 2024-11-24 09:11 | Emergency (ER) | payer BC ==
[~2024-11-24] VITALS: Ht 165.1 cm; Wt 68.0 kg
[2024-11-24 09:38] LABS: IMMATURE GRANULOCYTE ABSOLUTE 0.02 K/uL (0-1); NUCLEATED RED BLOOD CELLS 0.0 % (0.0-0.19); PLATELET COUNT (AUTO) 186 K/uL (130-400); RED BLOOD CELL COUNT(AUTO) 4.06 MIL/uL (4.50-6.20); RED CELL DISTRIBUTION WIDTH 19.0 % (11.0-15.5); WHITE BLOOD COUNT (AUTO) 6.0 K/uL (4.8-10.8)
[2024-11-24 09:49] LABS: CREATININE 1.0 mg/dL (0.5-1.3); GLOMERULAR FILTR. RATE CALC 86.0 mL/min (>90); GLUCOSE,RANDOM 199.0 mg/dL (70-105); SODIUM SERUM 133.0 mmol/L (136-145); UREA NITROGEN, BLOOD 29.0 mg/dL (7-18)
[2024-11-24 09:51] LABS: INR 1.03 (0.85-1.15)
--- NOTE | 2024-11-24 10:54 | NUR ---
REPORT GIVEN BY PAULETTE FROM RADIOLOGY AT THIS TIME.
--- NOTE | 2024-11-24 11:00 | NUR ---
PT ARRIVED AT ROOM AT THIS TIME.
--- NOTE | 2024-11-24 11:00 | NUR ---
U/S GD PARACENTESIS PROCEDURE PERFORMED BY DR KENT. PUNCTURE SITE RLQ AND PATIENT TOLERATED PROCEDURE WELL. TOTAL REMOVED 15.0 LITERS OF YELLOW CLOUDY ASCITES FLUID. END OF PROCEDURE AT 1050. CATHETER REMOVED AND DRESSING APPLIED. NO BLEEDING NOTED. REPORT GIVEN TO TASH Jaeger RN AND PATIENT TRANSPORTED TO ED VIA STRETCHER. AAO X3 WITH NO C/O PAIN.
[2024-11-24] MEDS ORDERED: ALBUMIN (HUMAN) 25% 50 ML IV STA (11:07)
[2024-11-24] MEDS: ALBUMIN (HUMAN) 25% 50 ML IV SCH (11:42)
--- NOTE | 2024-11-24 11:50 | ERN ---
ED Note History of Present Illness Stated Complaint: SOB Chief Complaint: Abdominal Pain Time Seen by MD: 09:16 Dictation: 59-year-old male history of cirrhosis with ascites sent over by primary care doctor for paracentesis therapeutic no current fever or chest pain does have some exertional shortness a breath and weakness. Allergies: Coded Allergies: bee venom protein (honey bee) (Unverified Allergy, Unknown, 06/30/24) Home Meds Active Scripts Clindamycin HCl (Clindamycin HCl) 300 Mg Capsule, 1 CAP PO QID for 10 Days, #40 CAP 0 Refills Prov:PEREZ FITZGERALD MD 07/16/24 Azithromycin (Azithromycin) 500 Mg Tablet, 1 TAB PO DAILY for 5 Days, #5 TAB 0 Refills Prov:STIVEN CRAWLEY 05/12/24 Spironolactone (Spironolactone) 25 Mg Tablet, 25 MG PO BID, #60 TAB 0 Refills Prov:STIVEN CRAWLEY 02/19/24 Propranolol HCl (Inderal) 10 Mg Tab, 10 MG PO DAILY, #30 TAB 0 Refills Prov:STIVEN CRAWLEYLIZETH 02/19/24 Pantoprazole Sodium (Protonix) 40 Mg Tablet.dr, 40 MG PO BID, #60 TAB 0 Refills Prov:STIVEN CRAWLEY 02/19/24 Multivitamins,Therapeutic (Multivitamin Tablet) 400 Mcg Tab, 1 TAB PO DAILY, #30 TAB 0 Refills Prov:STIVEN CRAWLEYLIZETH 02/19/24 Lactulose (Cephulac/Enulose Soln) 20 Gram/30 Ml Soln, 20 GM PO DAILY, #1 BOTTLE Prov:STIVEN CRAWLEY 02/19/24 Furosemide (Lasix 20Mg Tab) 20 Mg Tablet, 20 MG PO DAILY, #30 TAB Prov:STIVEN CRAWLEY 02/19/24 Past Medical History Past Medical History: Hypertension, Liver Disease Surgical History: None 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 Review of System Dictation Constitutional: Negative for fever,chills, and weight loss Eyes: Negative for injury, pain,redness, and discharge ENT: Negative for injury,pain or swelling Cardiovascular: Negative for chest pain, palpitations, and edema Respiratory: Per HPI Abdomen/GI: Negative for abdominal pain, nausea, vomiting, diarrhea, and constipation Back: Negative for injury and pain : Negative for injury, bleeding and discharge MS/Extremity: Negative for injury and deformity Skin: Negative for rash, and discoloration Neuro: Negative for headache, weakness, numbness, tingling, and seizure Psych: Negative for suicide ideation, homicidal ideation, and hallucinations Initial Vital Sign VS Vital Signs Date Time Temp Pulse Resp B/P (MAP) Pulse Ox O2 Delivery O2 Flow Rate FiO2 11/24/24 09:12 97.5 96 22 123/82 100 Room Air 11/24/24 09:45 0 21 Physical Exam Dictation General: awake, alert, appears chronically ill, no distress Head/Face: Normocephalic, atraumatic Eyes: PERRL, EOMI, vision at baseline ENT: oral cavity clear, TMs clear, no signs of infection Neck: Trachea midline, supple, no nuchal rigidity Cardiovascular: RRR, normal S1/S2, No MRGs, no JVD Respiratory: CTAB, no respiratory distress, No rales or wheezes Abdomen: Soft, non-tender, distended normal bowel sounds, no guarding or rebound. Skin: Warm, dry, normal turgor, no rash MS/Extremity: Pulses equal, no cyanosis, neurovascular intact, FROM Neuro: COAx4, GCS 15, strength 5/5, CN 2-12 intact, normal cerebellar exam, normal gait, Psych: Normal behavior, mood, and affect normal Results (Laboratory/Radiology) Laboratory/Radiology Laboratory Tests Test 11/24/24 09:32 White Blood Count 6.0 K/uL (4.8-10.8) Red Blood Count 4.06 MIL/uL (4.50-6.20) L Hemoglobin 9.9 g/dL (14.0-18.0) L Hematocrit 32.2 % (42-54) L Mean Corpuscular Volume 79.3 fL (79-99) Mean Corpuscular Hemoglobin 24.4 pg (27.0-33.0) L Mean Corpuscular Hemoglobin Concent 30.7 g/dL (32.0-36.0) L Red Cell Distribution Width 19.0 % (11.0-15.5) H Platelet Count 186 K/uL (130-400) Mean Platelet Volume 9.0 fL (7.5-10.5) Immature Granulocyte % (Auto) 0.3 % (0-1) Neutrophils (%) (Auto) 69.1 % (40.0-77.0) Lymphocytes (%) (Auto) 16.3 % (21.0-51.0) L Monocytes (%) (Auto) 10.3 % (3.0-13.0) Eosinophils (%) (Auto) 3.2 % (0.0-8.0) Basophils (%) (Auto) 0.8 % (0.0-5.0) Neutrophils # (Auto) 4.1 K/uL (1.8-7.7) Lymphocytes # (Auto) 1.0 K/uL (1.0-4.8) Monocytes # (Auto) 0.6 K/uL (0.1-1.0) Eosinophils # (Auto) 0.19 K/uL (0.00-0.70) Basophils # (Auto) 0.05 K/uL (0.00-0.20) Absolute Immature Granulocyte (auto 0.02 K/uL (0-1) Nucleated Red Blood Cells 0.0 % (0.0-0.19) Red Blood Cell Morphology See comments Prothrombin Time 10.9 SEC (9.6-11.6) Prothromb Time International Ratio 1.03 (0.85-1.15) Activated Partial Thromboplast Time 25.6 SEC (26.3-35.5) L Sodium Level 133 mmol/L (136-145) L Potassium Level 4.4 mmol/L (3.5-5.1) Chloride Level 102 mmol/L (101-111) Carbon Dioxide Level 23 mmol/L (21-32) Blood Urea Nitrogen 29 mg/dL (7-18) H Creatinine 1.0 mg/dL (0.5-1.3) Glomerular Filtration Rate Calc 86 mL/min (>90) Random Glucose 199 mg/dL (70-105) H Total Calcium 8.4 mg/dL (8.5-10.1) L Labs Reviewed?: Yes ED Course ED Course Orders Procedure Category Date Status Time Us Abdominal US 11/24/24 Logged Paracentesis Ir 09:30 Cbc With Differential LAB 11/24/24 Complete 09:30 Basic Metabolic Panel LAB 11/24/24 Complete 09:30 Pt And Ptt LAB 7/15/25 Complete 09:30 Albumin (Human) 25% PHA 11/24/24 Complete (Albumin (Human) 25% 11:07 Albumin (Human) 25% PHA 11/24/24 In Process (Albumin (Human) 25% 11:32 Current Medications Medications (Trade) Dose Ordered Sig/Maciej Route PRN Reason Start Time Stop Time Status Last Admin Dose Admin Albumin Human 50 ml @ 0 mls/hr AD STAT IV 11/24/24 11:07 11/24/24 11:13 DC Albumin Human 50 ml @ 0 mls/hr ONCE IV 11/24/24 11:32 11/26/24 12:30 11/24/24 11:42 Vital Signs Date Time Temp Pulse Resp B/P (MAP) Pulse Ox O2 Delivery O2 Flow Rate FiO2 11/24/24 11:10 79 18 111/70 100 Room Air* 0 21 11/24/24 09:45 97.5 96 22 123/82 100 Room Air* 0 21 11/24/24 09:12 97.5 96 22 123/82 100 Room Air Medical Decision Making MDM MDM: Differential diagnosis: Rationale: Tests considered and ordered secondary to shared decision making include: Previous outside records reviewed: Old ER visits. Risk of complication and/or morbidity or mortality of patient management: None Medications-Per medication reconciliation Need for hospitalization: Patient does not meet criteria for hospitalization. Need for emergency major/minor surgery: No There are no social concerns with this patient. Prescription drug management Prescriptions will include symptomatic care Patient's prior external medical records from other ER visits were reviewed by me as indicated. Prior testing and results from previous visits were reviewed. Prior tests were taken into account with medical decision making and resource utilization, independent historian/historians were used to obtain complete medical history. I independently interpreted the test that were performed, results were reviewed by me and considered findings on radiology if ordered. Medical management and examination interpretation discussions were had by me with other qualified healthcare professionals as indicated for the patient's care. 59-year-old male here for therapeutic paracentesis was taken IR lab work was stable recovered well postprocedure vitals at all stable given albumin and stable for discharge. DX & DISP Disposition: Discharge Departure Impression: Primary Impression: Abdominal ascites Additional Impression: Cirrhosis Condition: Stable Referrals: SLIME ELDRIDGE MD (PCP) PEREZ FITZGERALD MD Nov 24, 2024 11:50
[2024-11-24 12:12] VITALS: BP 115/73; PULSE 80; RESP 18; TEMP 97.7; O2SAT 100
--- NOTE | 2024-11-24 13:55 | HMCIMG ---
EXAM: US Abdomen Limited, Evaluate for Ascites. CLINICAL HISTORY: ASCITES TECHNIQUE: Real-time ultrasound of the abdomen to evaluate for ascites ( abdominal paracentesis ). COMPARISON: Study date - 11/06 FINDINGS: Post-procedure, 15 L of ascitic fluid is removed IMPRESSION: 1. 15 L of ascitic fluid removed via paracentesis. /[place]
== END 2024-11-24 12:21 | disposition home or self-care (01) ==
LOC: EDH 09:11
DX: R18.8 Other ascites (principal); K74.60 Unspecified cirrhosis of liver; I10 Essential (primary) hypertension; Z79.899 Other long term (current) drug therapy; Z91.030 Bee allergy status
CPT/HCPCS: 49083; 99285; 96365; 80048; 85025; 85610; 85730; 36415; P9047; C1729

== ENCOUNTER → 2024-12-04 | Emergency (ER) | payer BC ==
[~2024-12-04] VITALS: Ht 165.1 cm; Wt 68.0 kg
[2024-12-04 09:36] VITALS: BP 136/98; PULSE 121; RESP 18; TEMP 97.5; O2SAT 95
--- NOTE | 2024-12-04 10:05 | NUR ---
patient did not want to wait for his discharge paperwork
--- NOTE | 2024-12-04 10:23 | ERN ---
General Chief Complaint: Abdominal Pain Stated Complaint: ABDOMINAL PAIN Time Seen by MD: 09:45 Source: patient History of Present Illness Initial Comments Mr. Giordano this 59-year-old male patient, came to the ER for paracentesis. Patient has a past medical history of alcoholic cirrhosis and is currently following his primary care physician for management of ascitic fluid. Patient says he missed his scheduled paracentesis this Saturday because his mom . Pt wanted to do the procedure today so the on Saturday. Patient does not appear to be in acute distress and speaking in full sentences and his vitals look stable. Allergies: Coded Allergies: bee venom protein (honey bee) (Unverified Allergy, Unknown, 06/30/24) Home Meds Active Scripts Clindamycin HCl (Clindamycin HCl) 300 Mg Capsule, 1 CAP PO QID for 10 Days, #40 CAP 0 Refills Prov:PEREZ FITZGERALD MD 07/16/24 Azithromycin (Azithromycin) 500 Mg Tablet, 1 TAB PO DAILY for 5 Days, #5 TAB 0 Refills Prov:STIVEN CRAWLEY 05/12/24 Spironolactone (Spironolactone) 25 Mg Tablet, 25 MG PO BID, #60 TAB 0 Refills Prov:STIVEN CRAWLEY 02/19/24 Propranolol HCl (Inderal) 10 Mg Tab, 10 MG PO DAILY, #30 TAB 0 Refills Prov:STIVEN CRAWLEY 02/19/24 Pantoprazole Sodium (Protonix) 40 Mg Tablet.dr, 40 MG PO BID, #60 TAB 0 Refills Prov:STIVEN CRAWLEY 02/19/24 Multivitamins,Therapeutic (Multivitamin Tablet) 400 Mcg Tab, 1 TAB PO DAILY, #30 TAB 0 Refills Prov:STIVEN CRAWLEY 02/19/24 Lactulose (Cephulac/Enulose Soln) 20 Gram/30 Ml Soln, 20 GM PO DAILY, #1 BOTTLE Prov:STIVEN CRAWLEY 02/19/24 Furosemide (Lasix 20Mg Tab) 20 Mg Tablet, 20 MG PO DAILY, #30 TAB Prov:STIVEN CRAWLEYPCLIZETH 02/19/24 Past Medical History Past Medical History: Diabetes-Type II, Hypertension, Liver Disease Past Surgical History: Other Surgical History Other: paracentesis ROS Dictation CONSTITUTIONAL: No chills, no fever, no weakness, no diaphoresis, no malaise. HEAD/FACE: No signs of trauma. EENT: No eye pain, no blurred vision, no tearing, no double vision, no ear pain, no ear discharge, no nose pain, no nasal congestion, no throat pain, no throat swelling, no mouth pain. RESPIRATORY: No cough, no SOB, no orthopnea, no PND, no wheezing. CARDIOVASCULAR: No chest pain, no edema, no palpitations, no syncope. GASTROINTESTINAL/ABDOMINAL: Abdominal distension, No abdominal pain, no constipation, no diarrhea, no nausea, no vomiting. GENITOURINARY: No abnormal discharge, no dysuria, no frequent urination, no hematuria. No complaints of pain in the genitals. MUSCULOSKELETAL: Lower extremity wounds covered with dressings, No back pain, no gout, no joint pain, no joint swelling, no muscle pain, no muscle stiffness, no neck pain. INTEGUMENTARY: No change in color, no change in hair/nails, no dryness, no lesi on, no lumps, no rash. NEUROLOGICAL/PSYCH: No anxiety, not depressed, no emotional problem, no headache, no numbness, no pre-existing deficit, no history of seizures, no tremors, no weakness. HEMATOLOGIC/LYMPHATIC: Not anemic, no history of blood clots, no apparent bleeding, no bruising, glands not swollen. All Systems Negative, Except as Noted. Physical Exam Physical Exam Dictation VITAL SIGNS: Reviewed. GENERAL APPEARANCE: Alert, oriented x3 HEAD AND FACE: Non-traumatic. EYES: PERRL, pink conjunctivas, eyelid no trauma, anterior chamber clear. EARS: Pinnas intact and no signs of trauma or erythema. Ear canals clear and no discharge. TMs no erythema. NOSE: No discharge, no bleeding. OROPHARYNX: Mouth normal, teeth no caries, tongue pink. Pharynx clear, no erythema. Tonsils no exudates, no abscesses noted. Mucous membrane moist. NECK: Supple, non-tender, no thyromegaly, no masses, no JVD, no bruits. BREAST: Deferred. CHEST: No tenderness, no crepitus, no paradoxical movement, no retractions. LUNGS: Clear, well-ventilated, symmetric, no rales, no wheezing, no rhonchi, no stridor, good breath sounds bilaterally. HEART: Regular rate, regular rhythm, no murmur, no gallops. VASCULAR: No peripheral edema. ABDOMEN: Distended abdomen, positive succussion splash, positive shifting dullness, dilated abdominal superficial veins, positive bowel sounds, no guarding, nontender, no rebound, no masses no hepatomegaly, no splenomegaly, no Colon's sign, no hernias. RECTAL: Deferred. GENITAL: Deferred. NEUROLOGICAL: Normal speech, gross motor function intact, gross sensory function intact. MUSCULOSKELETAL: Neck nontender, full range of motion, back nontender, full range of motion. EXTREMITIES: Nontender, full range of motion. SKIN: Multiple [place] bruises on both Upper and lower extremities , dry, no turgor, no rash, no lacerations, no abrasions, no contusions. LYMPHATICS: Deferred. MDM MDM: Differential diagnosis: Ascites on chronic alcoholic liver cirrhosis. Rationale: Tests considered and ordered secondary to shared decision making include: None Previous outside records reviewed: Old ER visits. Risk of complication and/or morbidity or mortality of patient management: None Medications-Per medication reconciliation Need for hospitalization: Patient does not meet criteria for hospitalization. Need for emergency major/minor surgery: No Pt presented with gross abdominal distension, says he missed his paracentesis this week and wanted the fluid to be drained. Pt is speaking in full sentences, vitals are stable and does not complain of pain or SOB. Pt in his currently stable and is not in acute distress. Pt will be discharged. Pt advised to follow up with Dr. Eldridge, who is following him regularly for management of his alcoholic cirrhosis. ED Course Vital Signs Date Time Temp Pulse Resp B/P (MAP) Pulse Ox O2 Delivery O2 Flow Rate FiO2 12/04/24 09:36 97.5 121 18 136/98 95 Room Air* 0 21 12/04/24 09:33 97.5 121 18 136/98 95 Room Air DX & DISP Disposition: Discharge Departure Impression: Primary Impression: History of cirrhosis of liver Additional Impressions: Abdominal ascites, Abdominal distention Condition: Stable Additional Instructions: You are stable today. Follow-up with Dr. Eldridge for paracentesis on Saturday. Please come back if the symptoms worsen to the ER. Referrals: SLIME ELDRIDGE MD (PCP) Time of Disposition: 10:46 SHEELA LIN MD Dec 04, 2024 10:22 CHUY HIGUERA MD Dec 04, 2024 10:46
== END ==
LOC: EDH 09:31
DX: R18.8 Other ascites (principal); E11.9 Type 2 diabetes mellitus without complications; I10 Essential (primary) hypertension; Z79.899 Other long term (current) drug therapy; Z91.030 Bee allergy status
CPT/HCPCS: 99281

== ENCOUNTER 2025-01-14 07:44 | Emergency (ER) | payer BC ==
[~2025-01-14] VITALS: Ht 165.1 cm; Wt 63.5 kg
[2025-01-14 08:19] LABS: IMMATURE GRANULOCYTE ABSOLUTE 0.03 K/uL (0-1); NUCLEATED RED BLOOD CELLS 0.0 % (0.0-0.19); PLATELET COUNT (AUTO) 209 K/uL (130-400); RED BLOOD CELL COUNT(AUTO) 4.35 MIL/uL (4.50-6.20); RED CELL DISTRIBUTION WIDTH 17.5 % (11.0-15.5); WHITE BLOOD COUNT (AUTO) 7.2 K/uL (4.8-10.8)
[2025-01-14 08:29] LABS: INR 1.0 (0.85-1.15)
[2025-01-14 08:33] LABS: ASPARTATE AMINOTRANSFERASE 47.0 U/L (10-37); CREATININE 1.4 mg/dL (0.5-1.3); GLOMERULAR FILTR. RATE CALC 58.0 mL/min (>90); GLUCOSE,RANDOM 163.0 mg/dL (70-105); SODIUM SERUM 135.0 mmol/L (136-145); TOTAL PROTEIN, SERUM 6.2 g/dL (6.0-8.3); UREA NITROGEN, BLOOD 30.0 mg/dL (7-18)
--- NOTE | 2025-01-14 08:39 | NUR ---
PT WAS INFORMED THAT CURRENTLY THE HOSPITAL DOES NOT HAVE INTERVENTIONAL RADIOLOGY SERVICES AT THIS TIME. ED MD WAS MADE AWARE WELL.
--- NOTE | 2025-01-14 08:49 | HMCIMG ---
EXAM: CR Chest, 1 View. CLINICAL HISTORY: sob COMPARISON: Radiograph dated July 16, 2024 FINDINGS: LUNGS: There is no mass, infiltrate, or acute pulmonary abnormality. Mild bibasilar atelectasis. PLEURAL SPACES: No evidence of pleural effusion or pneumothorax. MEDIASTINUM: Cardiac size and mediastinal contours within normal limits. BONES: No acute osseous abnormality. IMPRESSION: No acute cardiopulmonary pathology is evident. /[place]
--- NOTE | 2025-01-14 08:53 | EKG ---
[facility] Test Date: 2025-01-14 Test Time: 07:55:18 Pat Name: ISIDRO LEVIO Department: ED Room: Gender: M Pie Baker: [id number] : 1965 Requested By: PEREZ FITZGERALD Order Number: [id number] Reading MD: Isidro Mosqueda Measurements Intervals [place] Rate: 101 P: 44 WA: 173 QRS: 6 QRSD: 61 T: 47 QT: 327 QTc: 424 Interpretive Statements Sinus tachycardia Low voltage, extremity and precordial leads Compared to ECG 12/14/2024 08:34:20 Sinus rhythm no longer present Myocardial infarct finding no longer present Electronically Signed On 01-14-2025 18:31:08 CDT by Isidro Mosqueda Please click the below link to view image of tracing.
[2025-01-14] MEDS: ALBUMIN HUMAN 25% 200 ML IV ONE (10:57)
--- NOTE | 2025-01-14 11:45 | NUR ---
U/S GD PARACENTESIS PROCEDURE PERFORMED BY DR Jeannine KENT. PUNCTURE SITE RLQ AND PATIENT TOLERATED PROCEDURE WELL. TOTAL REMOVED 15.3 LITERS OF CLOUDY YELLOW FLUID. END OF PROCEDURE AT 1130. CATHETER REMOVED AND DRESSING APPLIED. NO BLEEDING NOTED. REPORT GIVEN TO ALFA MORELAND RN AND PATIENT TRANSPORTED TO ED 17 VIA STRETCHER AT 1145. AAO X3 WITH NO C/O PAIN. ALBUMIN 25% 50 GRAMS IV GIVEN DURING PROCEDURE.
--- NOTE | 2025-01-14 11:52 | NUR ---
PER PAULETTE RN, 15.3 L TAKEN OUT OF RLQ ABD. BP: 118/53 HR: 92BPM SATTING 99%RA. PT ALREADY RECEIVED ALBUMIN 50GRAMS IV IN RADIOLOGY.
--- NOTE | 2025-01-14 12:01 | NUR ---
RETURNED FROM PARACENTESIS
[2025-01-14 12:03] VITALS: BP 113/88; PULSE 92; RESP 18; TEMP 98.1; O2SAT 100
--- NOTE | 2025-01-14 12:06 | ERN ---
ED Note History of Present Illness Stated Complaint: PARACENTESIS/ SOB Chief Complaint: Other Problems Time Seen by MD: 07:51 Dictation: 59-year-old male presenting to the emergency department with increased abdominal ascites and shortness a breath last had paracentesis two weeks ago. No fever no chest pain Allergies: Coded Allergies: bee venom protein (honey bee) (Unverified Allergy, Unknown, 06/30/24) Home Meds Active Scripts Clindamycin HCl (Clindamycin HCl) 300 Mg Capsule, 1 CAP PO QID for 10 Days, #40 CAP 0 Refills Prov:PEREZ FITZGERALD MD 07/16/24 Azithromycin (Azithromycin) 500 Mg Tablet, 1 TAB PO DAILY for 5 Days, #5 TAB 0 Refills Prov:STIVEN CRAWLEY 05/12/24 Spironolactone (Spironolactone) 25 Mg Tablet, 25 MG PO BID, #60 TAB 0 Refills Prov:STIVEN CRAWLEY 02/19/24 Propranolol HCl (Inderal) 10 Mg Tab, 10 MG PO DAILY, #30 TAB 0 Refills Prov:STIVEN CRAWLEYLIZETH 02/19/24 Pantoprazole Sodium (Protonix) 40 Mg Tablet.dr, 40 MG PO BID, #60 TAB 0 Refills Prov:STIVEN CRAWLEY 02/19/24 Multivitamins,Therapeutic (Multivitamin Tablet) 400 Mcg Tab, 1 TAB PO DAILY, #30 TAB 0 Refills Prov:STIVEN CRAWLEYLIZETH 02/19/24 Lactulose (Cephulac/Enulose Soln) 20 Gram/30 Ml Soln, 20 GM PO DAILY, #1 BOTTLE Prov:STIVEN CRAWLEYLIZETH 02/19/24 Furosemide (Lasix 20Mg Tab) 20 Mg Tablet, 20 MG PO DAILY, #30 TAB Prov:STIVEN CRAWLEYLIZETH 02/19/24 Past Medical History Past Medical History: Anemia, Diabetes-Type II, Hypertension, Liver Disease Additional Past Medical Hx: LLE WOUND Surgical History: Other Surgical History Other: RLE WOUND GRAFT, PARACENTESIS Review of System Dictation Constitutional: Negative for fever,chills, and weight loss Eyes: Negative for injury, pain,redness, and discharge ENT: Negative for injury,pain or swelling Cardiovascular: Negative for chest pain, palpitations, and edema Respiratory: Per HPI Abdomen/GI: Per HPI : Negative for injury, bleeding and discharge MS/Extremity: Negative for injury and deformity Skin: Negative for rash, and discoloration Neuro: Negative for headache, weakness, numbness, tingling, and seizure Psych: Negative for suicide ideation, homicidal ideation, and hallucinations Initial Vital Sign VS Vital Signs Date Time Temp Pulse Resp B/P (MAP) Pulse Ox O2 Delivery O2 Flow Rate FiO2 01/14/25 07:47 98.1 103 18 131/91 100 Room Air 0 01/14/25 08:02 21 Physical Exam Dictation General: awake, alert, appears chronically ill Head/Face: Normocephalic, atraumatic Eyes: PERRL, EOMI, vision at baseline ENT: oral cavity clear, TMs clear, no signs of infection Neck: Trachea midline, supple, no nuchal rigidity Cardiovascular: RRR, normal S1/S2, No MRGs, no JVD Respiratory: Diminished bilateral breath sounds no respiratory distress, No rales or wheezes Abdomen: Soft, non-tender, distended normal bowel sounds, no guarding or rebound. Skin: Warm, dry, normal turgor, no rash MS/Extremity: Pulses equal, no cyanosis, neurovascular intact, FROM Neuro: COAx4, GCS 15, strength 5/5, CN 2-12 intact, normal cerebellar exam, normal gait, Psych: Normal behavior, mood, and affect normal Results (Laboratory/Radiology) Laboratory/Radiology Laboratory Tests Test 01/14/25 08:10 White Blood Count 7.2 K/uL (4.8-10.8) Red Blood Count 4.35 MIL/uL (4.50-6.20) L Hemoglobin 10.4 g/dL (14.0-18.0) L Hematocrit 34.2 % (42-54) L Mean Corpuscular Volume 78.6 fL (79-99) L Mean Corpuscular Hemoglobin 23.9 pg (27.0-33.0) L Mean Corpuscular Hemoglobin Concent 30.4 g/dL (32.0-36.0) L Red Cell Distribution Width 17.5 % (11.0-15.5) H Platelet Count 209 K/uL (130-400) Mean Platelet Volume 10.4 fL (7.5-10.5) Immature Granulocyte % (Auto) 0.4 % (0-1) Neutrophils (%) (Auto) 76.6 % (40.0-77.0) Lymphocytes (%) (Auto) 13.4 % (21.0-51.0) L Monocytes (%) (Auto) 8.3 % (3.0-13.0) Eosinophils (%) (Auto) 0.6 % (0.0-8.0) Basophils (%) (Auto) 0.7 % (0.0-5.0) Neutrophils # (Auto) 5.5 K/uL (1.8-7.7) Lymphocytes # (Auto) 1.0 K/uL (1.0-4.8) Monocytes # (Auto) 0.6 K/uL (0.1-1.0) Eosinophils # (Auto) 0.04 K/uL (0.00-0.70) Basophils # (Auto) 0.05 K/uL (0.00-0.20) Absolute Immature Granulocyte (auto 0.03 K/uL (0-1) Nucleated Red Blood Cells 0.0 % (0.0-0.19) Red Blood Cell Morphology See comments Prothrombin Time 10.6 SEC (9.6-11.6) Prothromb Time International Ratio 1.00 (0.85-1.15) Activated Partial Thromboplast Time 24.6 SEC (26.3-35.5) L Sodium Level 135 mmol/L (136-145) L Potassium Level 4.7 mmol/L (3.5-5.1) Chloride Level 105 mmol/L (101-111) Carbon Dioxide Level 22 mmol/L (21-32) Blood Urea Nitrogen 30 mg/dL (7-18) H Creatinine 1.4 mg/dL (0.5-1.3) H Glomerular Filtration Rate Calc 58 mL/min (>90) Random Glucose 163 mg/dL (70-105) H Total Calcium 8.1 mg/dL (8.5-10.1) L Total Bilirubin 0.3 mg/dL (0.2-1.0) Direct Bilirubin 0.1 mg/dL (0.0-0.3) Aspartate Amino Transf (AST/SGOT) 47 U/L (10-37) H Alanine Aminotransferase (ALT/SGPT) 36 U/L (12-78) Alkaline Phosphatase 194 U/L (50-136) H Troponin I High Sensitivity 7 ng/L (4-75) B-Type Natriuretic Peptide 75 pg/mL (0-100) Total Protein 6.2 g/dL (6.0-8.3) Albumin 1.9 g/dL (3.5-5.0) L Labs Reviewed?: Yes EKG Comment: Heart rate 101, sinus tachycardia, no STEMI ED Course ED Course Orders Procedure Category Date Status Time 12 Lead Ekg Tracing- EKG 01/14/25 Complete Technical 07:53 Basic Metabolic Panel LAB 01/14/25 Complete 07:53 Cbc With Differential LAB 01/14/25 Complete 07:53 Hepatic Function Panel LAB 01/14/25 Complete 07:53 Troponin I High LAB 01/14/25 Complete Sensitivity 07:53 Chest 1vw RAD 01/14/25 Resulted 07:53 B-Type Natriuretic LAB 01/14/25 Complete Peptide 07:53 Pt And Ptt LAB 01/14/25 Complete 07:53 Us Abdominal US 01/14/25 Logged Paracentesis Ir 09:05 Albumin Human 25% PHA 01/14/25 Complete ([place]) 10:51 Current Medications Medications (Trade) Dose Ordered Sig/Maciej Route PRN Reason Start Time Stop Time Status Last Admin Dose Admin Albumin Human 200 ml @ As Directed STK-MED ONCE IV 01/14/25 10:51 01/14/25 10:52 DC 01/14/25 10:57 Vital Signs Date Time Temp Pulse Resp B/P (MAP) Pulse Ox O2 Delivery O2 Flow Rate FiO2 01/14/25 09:30 98.1 95 18 158/88 100 Room Air* 0 21 01/14/25 08:02 98.1 103 18 /131 100 Room Air* 0 21 01/14/25 07:47 98.1 103 18 131/91 100 Room Air 0 Medical Decision Making MDM MDM: Differential diagnosis: Rationale: Tests considered and ordered secondary to shared decision making include: Previous outside records reviewed: Old ER visits. Risk of complication and/or morbidity or mortality of patient management: None Medications-Per medication reconciliation Need for hospitalization: Patient does not meet criteria for hospitalization. Need for emergency major/minor surgery: No There are no social concerns with this patient. Prescription drug management Prescriptions will include symptomatic care Patient's prior external medical records from other ER visits were reviewed by me as indicated. Prior testing and results from previous visits were reviewed. Prior tests were taken into account with medical decision making and resource utilization, independent historian/historians were used to obtain complete medical history. I independently interpreted the test that were performed, results were reviewed by me and considered findings on radiology if ordered. Medical management and examination interpretation discussions were had by me with other qualified healthcare professionals as indicated for the patient's care. 59-year-old male presenting to the emergency department with ascites fluid overload had paracentesis with Interventional Radiology, symptoms improved got albumin labs stable stable for discharge. DX & DISP Disposition: Discharge Departure Impression: Primary Impression: Abdominal ascites Additional Impression: Abdominal distention Condition: Stable Referrals: SLIME ELDRIDGE MD (PCP) PEREZ FITZGERALD MD Jan 14, 2025 12:05
--- NOTE | 2025-01-14 12:52 | HMCIMG ---
US ABDOMINAL PARACENTESIS IR REASON: ASCITES TECHNIQUE: Paracentesis was performed with ultrasound guidance. The puncture site was selected in the Right lower quadrant and overlying skin prepped and draped in a sterile fashion. 1% Xylocaine infiltration was performed. Catheter was placed in the fluid using trocar technique. 15.3 L were removed. Fluid sample was submitted for laboratory evaluation. The patient showed no evidence of complication during the procedure. Patient tolerated procedure well. IMPRESSION: 1. Ultrasound-guided paracentesis.
== END 2025-01-14 12:20 | disposition home or self-care (01) ==
LOC: EDH 07:44
DX: R18.8 Other ascites (principal); R14.0 Abdominal distension (gaseous); E11.9 Type 2 diabetes mellitus without complications; I10 Essential (primary) hypertension; Z79.899 Other long term (current) drug therapy; Z91.030 Bee allergy status
CPT/HCPCS: 49083; 99285; 96374; 71045; 80076; 84484; 80048; 83880; 85025; 85610; 85730; 36415; 93005; P9046; C1729

== ENCOUNTER 2025-03-15 06:44 | Inpatient (IN) | payer BC, MEDICAID ==
[~2025-03-15] VITALS: Ht 175.3 cm; Wt 63.5 kg
[2025-03-15 08:05] LABS: IMMATURE GRANULOCYTE ABSOLUTE 0.05 K/uL (0-1); NUCLEATED RED BLOOD CELLS 0.0 % (0.0-0.19); PLATELET COUNT (AUTO) 157 K/uL (130-400); RED BLOOD CELL COUNT(AUTO) 3.44 MIL/uL (4.50-6.20); RED CELL DISTRIBUTION WIDTH 19.8 % (11.0-15.5); WHITE BLOOD COUNT (AUTO) 11.8 K/uL (4.8-10.8)
[2025-03-15 08:10] LABS: CREATININE 0.8 mg/dL (0.5-1.3); GLOMERULAR FILTR. RATE CALC 101 mL/min (>90); GLUCOSE,RANDOM 110 mg/dL (70-105); SODIUM SERUM 141 mmol/L (136-145); UREA NITROGEN, BLOOD 23 mg/dL (7-18)
[2025-03-15 08:16] LABS: INR 1.32 (0.85-1.15)
[2025-03-15 08:25] LABS: ALCOHOL, BLOOD < 3 mg/dL (0-10); ASPARTATE AMINOTRANSFERASE 64 U/L (10-37); TOTAL PROTEIN, SERUM 6.1 g/dL (6.0-8.3)
[2025-03-15 08:26] LABS: CREATINE KINASE, TOTAL 793 U/L (21-232)
--- NOTE | 2025-03-15 08:31 | HMCIMG ---
EXAM: CT Head Without IV contrast. CLINICAL HISTORY: AMS, fall. TECHNIQUE: Axial computed tomography images of the head/brain without intravenous contrast. COMPARISON: None provided. FINDINGS: BRAIN: No evidence of acute hemorrhage. No mass lesion. No CT evidence for acute territorial infarct. No midline shift or extra-axial collections. Mild cerebral volume loss in the form of prominent ventricles and cortical sulci. Mild bilateral periventricular white matter hypodensities are seen, consistent with chronic small vessel ischemic changes. VENTRICLES: No hydrocephalus. ORBITS: The orbits are unremarkable. SINUSES AND MASTOIDS: The mastoid air cells are clear. Small left maxillary sinus polyp. BONES: No fracture. SOFT TISSUES: Unremarkable. IMPRESSION: Mild cerebral volume loss with chronic small vessel ischemic changes. No acute intracranial abnormality. /[place]
--- NOTE | 2025-03-15 09:09 | HMCIMG ---
EXAM: CR Chest, 1 View. CLINICAL HISTORY: fall COMPARISON: None provided. FINDINGS: LUNGS: The lungs show no infiltrate or other acute finding. PLEURAL SPACES: No evidence of pleural effusion or pneumothorax. MEDIASTINUM: The cardiomediastinal silhouette is within normal limits. BONES: No aggressive appearing osseous lesion seen. IMPRESSION: No acute cardiopulmonary pathology is evident. A subtle bone abnormality or fracture may not be readily apparent on x-rays, thus clinical correlation and further imaging including follow up CT, MRI, or follow up x-rays are advised as needed. /[place]
--- NOTE | 2025-03-15 09:46 | EKG ---
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
[2025-03-15] MEDS: LACTULOSE 20 GM/30 ML UDCUP PO STA (09:51)
--- NOTE | 2025-03-15 12:48 | ERN ---
ED Note History of Present Illness Stated Complaint: AMS Chief Complaint: Altered Mental Status Time Seen by MD: 07:27 Dictation: 59-year-old male presenting to the emergency department by EMS for altered mental status family gave history of liver disease, and similar episodes in the past was found outside on the floor. Allergies: Coded Allergies: bee venom protein (honey bee) (Unverified Allergy, Unknown, 06/30/24) Home Meds Active Scripts Clindamycin HCl (Clindamycin HCl) 300 Mg Capsule, 1 CAP PO QID for 10 Days, #40 CAP 0 Refills Prov:PEREZ FITZGERALD MD 07/16/24 Azithromycin (Azithromycin) 500 Mg Tablet, 1 TAB PO DAILY for 5 Days, #5 TAB 0 Refills Prov:STIVEN CRAWLEY AGACNYao 05/12/24 Spironolactone (Spironolactone) 25 Mg Tablet, 25 MG PO BID, #60 TAB 0 Refills Prov:STIVEN CRAWLEY AGACNYao 02/19/24 Propranolol HCl (Inderal) 10 Mg Tab, 10 MG PO DAILY, #30 TAB 0 Refills Prov:STIVEN CRAWLEY AGACNP 02/19/24 Pantoprazole Sodium (Protonix) 40 Mg Tablet.dr, 40 MG PO BID, #60 TAB 0 Refills Prov:STIVEN CRAWLEY AGACNP 02/19/24 Multivitamins,Therapeutic (Multivitamin Tablet) 400 Mcg Tab, 1 TAB PO DAILY, #30 TAB 0 Refills Prov:STIVEN CRAWLEY AGACNP 02/19/24 Lactulose (Cephulac/Enulose Soln) 20 Gram/30 Ml Soln, 20 GM PO DAILY, #1 BOTTLE Prov:STIVEN CRAWLEYCNP 02/19/24 Furosemide (Lasix 20Mg Tab) 20 Mg Tablet, 20 MG PO DAILY, #30 TAB Prov:STIVEN CRAWLEY AGACNP 02/19/24 Past Medical History Past Medical History: Anemia, Diabetes-Type II, Hypertension, Liver Disease Additional Past Medical Hx: CIRRHOSIS Surgical History: Other Surgical History Other: RLE WOUND GRAFT, PARACENTESIS Review of System Dictation Unable to obtain due to altered mental status Initial Vital Sign VS Vital Signs Date Time Temp Pulse Resp B/P (MAP) Pulse Ox O2 Delivery O2 Flow Rate FiO2 03/15/25 06:48 96.6 109 18 122/82 100 Room Air 0 03/15/25 07:00 21 Physical Exam Dictation General: awake, appears confused Head/Face: Normocephalic, atraumatic Eyes: PERRL, EOMI, vision at baseline ENT: oral cavity clear, TMs clear, no signs of infection Neck: Trachea midline, supple, no nuchal rigidity Cardiovascular: RRR, normal S1/S2, No MRGs, no JVD Respiratory: CTAB, no respiratory distress, No rales or wheezes Abdomen: Soft, non-tender, non-distended, normal bowel sounds, no guarding or rebound. Skin: Warm, dry, normal turgor, no rash MS/Extremity: Pulses equal, no cyanosis, neurovascular intact, FROM Neuro: Confused, normal strength moves all extremity Results (Laboratory/Radiology) Laboratory/Radiology Laboratory Tests Test 03/15/25 07:31 White Blood Count 11.8 K/uL (4.8-10.8) H Red Blood Count 3.44 MIL/uL (4.50-6.20) L Hemoglobin 9.5 g/dL (14.0-18.0) L Hematocrit 30.1 % (42-54) L Mean Corpuscular Volume 87.5 fL (79-99) Mean Corpuscular Hemoglobin 27.6 pg (27.0-33.0) Mean Corpuscular Hemoglobin Concent 31.6 g/dL (32.0-36.0) L Red Cell Distribution Width 19.8 % (11.0-15.5) H Platelet Count 157 K/uL (130-400) Mean Platelet Volume 8.5 fL (7.5-10.5) Immature Granulocyte % (Auto) 0.4 % (0-1) Neutrophils (%) (Auto) 89.7 % (40.0-77.0) H Lymphocytes (%) (Auto) 4.4 % (21.0-51.0) L Monocytes (%) (Auto) 5.2 % (3.0-13.0) Eosinophils (%) (Auto) 0.1 % (0.0-8.0) Basophils (%) (Auto) 0.2 % (0.0-5.0) Neutrophils # (Auto) 10.6 K/uL (1.8-7.7) H Lymphocytes # (Auto) 0.5 K/uL (1.0-4.8) L Monocytes # (Auto) 0.6 K/uL (0.1-1.0) Eosinophils # (Auto) 0.01 K/uL (0.00-0.70) Basophils # (Auto) 0.02 K/uL (0.00-0.20) Absolute Immature Granulocyte (auto 0.05 K/uL (0-1) Nucleated Red Blood Cells 0.0 % (0.0-0.19) White Cell Morphology Comment See comments Red Blood Cell Morphology See comments Prothrombin Time 13.6 SEC (9.6-11.6) H Prothromb Time International Ratio 1.32 (0.85-1.15) H Activated Partial Thromboplast Time 27.0 SEC (26.3-35.5) Sodium Level 141 mmol/L (136-145) Potassium Level 3.8 mmol/L (3.5-5.1) Chloride Level 108 mmol/L (101-111) Carbon Dioxide Level 25 mmol/L (21-32) Blood Urea Nitrogen 23 mg/dL (7-18) H Creatinine 0.8 mg/dL (0.5-1.3) Glomerular Filtration Rate Calc 101 mL/min (>90) Random Glucose 110 mg/dL (70-105) H Lactic Acid Level 3.7 mmol/L (0.8-2.5) H Total Calcium 7.8 mg/dL (8.5-10.1) L Total Bilirubin 1.8 mg/dL (0.2-1.0) H Direct Bilirubin 0.8 mg/dL (0.0-0.3) H Aspartate Amino Transf (AST/SGOT) 64 U/L (10-37) H Alanine Aminotransferase (ALT/SGPT) 40 U/L (12-78) Alkaline Phosphatase 179 U/L (50-136) H Ammonia 181 umol/L (11-32) *H Total Creatine Kinase 793 U/L (21-232) #*H Troponin I High Sensitivity 27 ng/L (4-75) Total Protein 6.1 g/dL (6.0-8.3) Albumin 1.9 g/dL (3.5-5.0) L Serum Alcohol < 3 mg/dL (0-10) Labs Reviewed?: Yes EKG Comment: Heart rate 109, sinus tachycardia normal intervals no STEMI ED Course ED Course Orders Procedure Category Date Status Time 12 Lead Ekg Tracing- EKG 03/15/25 Complete Technical 07:28 Ammonia LAB 03/15/25 Complete 07:28 Alcohol, Blood LAB 03/15/25 Complete 07:28 Basic Metabolic Panel LAB 03/15/25 Complete 07:28 Blood Cult KELSI 03/15/25 In Process 07:28 Cbc With Differential LAB 03/15/25 Complete 07:28 Hepatic Function Panel LAB 03/15/25 Complete 07:28 Creatine Kinase, Total LAB 03/15/25 Complete 07:28 Lactic Acid LAB 03/15/25 Complete 07:28 Troponin I High LAB 03/15/25 Complete Sensitivity 07:28 Urinalysis Profile LAB 03/15/25 Logged 07:28 Pt And Ptt LAB 03/15/25 Complete 07:28 Chest 1vw RAD 03/15/25 Resulted 07:28 Ct Head/Brain W/O CT 03/15/25 Resulted Contrast 07:28 Ceftriaxone 2gm Vial PHA 03/15/25 Complete (Rocephin 2gm Inj) 07:30 Lactulose 20 Gm/30 Ml PHA 03/15/25 In Process Udcup (Constulose 07:30 Admit Orders ADM 03/15/25 Transmitted 10:48 One To One Sitter CPOE 03/15/25 Transmitted 10:58 *Nursing CPOE 03/15/25 Transmitted Communication: 10:58 Lactic Acid (Removed) LAB 03/15/25 Logged 11:19 Current Medications Medications (Trade) Dose Ordered Sig/Maciej Route PRN Reason Start Time Stop Time Status Last Admin Dose Admin Ceftriaxone Sodium (Rocephin 2gm Inj) 2 gm ONCE STAT IVPB 03/15/25 07:30 03/15/25 07:32 DC 03/15/25 09:51 Lactulose (Constulose 20gm/ 30ml Udcup) 20 gm ONCE STAT PO 03/15/25 07:30 03/15/25 07:32 DC 03/15/25 09:51 Vital Signs Date Time Temp Pulse Resp B/P (MAP) Pulse Ox O2 Delivery O2 Flow Rate FiO2 03/15/25 10:25 98.2 119 16 148/77 100 Room Air* 0 21 03/15/25 07:00 93.6 108 16 160/83 100 Room Air* 0 21 03/15/25 06:48 96.6 109 18 122/82 100 Room Air 0 Medical Decision Making MDM MDM: Differential diagnosis: Rationale: Tests considered and ordered secondary to shared decision making include: labs, ECG and radiology Previous outside records reviewed: Old ER visits. Risk of complication and/or morbidity or mortality of patient management: None Medications-Per medication reconciliation Need for hospitalization: Patient does meet criteria for hospitalization. Need for emergency major/minor surgery: No There are no social concerns with this patient. Prescription drug management Prescriptions will include symptomatic care Patient's prior external medical records from other ER visits were reviewed by me as indicated. Prior testing and results from previous visits were reviewed. Prior tests were taken into account with medical decision making and resource utilization, independent historian/historians were used to obtain complete medical history. I independently interpreted the test that were performed, results were reviewed by me and considered findings on radiology if ordered. Medical management and examination interpretation discussions were had by me with other qualified healthcare professionals as indicated for the patient's care. 59-year-old male with hepatic encephalopathy, stable initial exam and vital signs admitting for further care and evaluation order lactulose and further treatment Critical Care Note Comment(s) Total critical care time was 33 minutes. Excluding time for procedures. Management of critically ill patient with concern for acute decompensation. Management included interpretation of laboratory values and imaging, hemodynamics, time for consultation with consultants and admitting physician. DX & DISP Disposition: Inpatient Departure Impression: Primary Impression: Hepatic encephalopathy Additional Impression: Altered mental status Condition: Stable Referrals: SLIME ELDRIDGE MD (PCP) PEREZ FITZGERALD MD Mar 15, 2025 12:48
--- NOTE | 2025-03-15 16:28 | NUR ---
REPORT GIVEN TO NURSE MILES
[2025-03-15 16:40] VITALS: BP 138/70; PULSE 116; RESP 21; TEMP 98.4
--- NOTE | 2025-03-15 16:48 | NUR ---
DCP:HOME SW spoke with sister who was at bedside due to pt altered mental status. According to sister pt will stay in a room behind her home or at his mothers house, he tends to go back and forth from those two places. Pt does have a walker that he uses to ambulate. Sister states that she does not have provider or home health services. PCP is Dr. Hever Bermudez and uses [facility] for any RX needs. At DC pt will want to go home and family can assist with transportation. Addendum: 03/15/25 at 1651 by DIA REED SS Amended: Links added.
[2025-03-15 19:50] VITALS: O2SAT 99
[2025-03-15] MEDS ORDERED: HALOPERIDOL 1 MG TABLET PO PRN (20:00)
[2025-03-15 20:04] VITALS: BP 147/79; PULSE 90; RESP 18; TEMP 97.6
[2025-03-15] MEDS: LACTULOSE 20 GM/30 ML UDCUP PO SCH (20:59)
--- NOTE | 2025-03-15 22:10 | HP ---
HISTORY AND PHYSICAL NOTE DATE OF CONSULTATION: 03/15/25 REASON FOR CONSULTATION: agitation HISTORY OF PRESENT ILLNESS: 59-year-old male presenting to the emergency department by EMS for altered mental status family gave history of liver disease, and similar episodes in the past was found outside on the floor. Allergies: Coded Allergies: bee venom protein (honey bee) (Unverified Allergy, Unknown, 06/30/24) Home Meds Active Scripts Clindamycin HCl (Clindamycin HCl) 300 Mg Capsule, 1 CAP PO QID for 10 Days, #40 CAP 0 Refills Prov:PEREZ FITZGERALD MD 07/16/24 Azithromycin (Azithromycin) 500 Mg Tablet, 1 TAB PO DAILY for 5 Days, #5 TAB 0 Refills Prov:STIVEN CRAWLEY 05/12/24 Spironolactone (Spironolactone) 25 Mg Tablet, 25 MG PO BID, #60 TAB 0 Refills Prov:STIVEN CRAWLEYCNYao 02/19/24 Propranolol HCl (Inderal) 10 Mg Tab, 10 MG PO DAILY, #30 TAB 0 Refills Prov:STIVEN CRAWLEYCNYao 02/19/24 Pantoprazole Sodium (Protonix) 40 Mg Tablet.dr, 40 MG PO BID, #60 TAB 0 Refills Prov:STIVEN CRAWLEYCNP 02/19/24 Multivitamins,Therapeutic (Multivitamin Tablet) 400 Mcg Tab, 1 TAB PO DAILY, #30 TAB 0 Refills Prov:STIVEN CRAWLEYCNP 02/19/24 Lactulose (Cephulac/Enulose Soln) 20 Gram/30 Ml Soln, 20 GM PO DAILY, #1 BOTTLE Prov:STIVEN CRAWLEYCNYao 02/19/24 Furosemide (Lasix 20Mg Tab) 20 Mg Tablet, 20 MG PO DAILY, #30 TAB Prov:STIVEN CRAWLEY AGACNP 02/19/24 Past Medical History Past Medical History: Anemia, Diabetes-Type II, Hypertension, Liver Disease Additional Past Medical Hx: CIRRHOSIS Surgical History: Other Surgical History Other: RLE WOUND GRAFT, PARACENTESIS Review of System Dictation Unable to obtain due to altered mental status ALLERGIES: Coded Allergies: bee venom protein (honey bee) (Unverified Allergy, Unknown, 06/30/24) HOME MEDS: Active Scripts Clindamycin HCl (Clindamycin HCl) 300 Mg Capsule, 1 CAP PO QID for 10 Days, #40 CAP 0 Refills Prov:PEREZ FITZGERALD MD 07/16/24 Azithromycin (Azithromycin) 500 Mg Tablet, 1 TAB PO DAILY for 5 Days, #5 TAB 0 Refills Prov:STIVEN CRAWLEY [facility] 05/12/24 Spironolactone (Spironolactone) 25 Mg Tablet, 25 MG PO BID, #60 TAB 0 Refills Prov:STIVEN CRAWLEY [facility] 02/19/24 Propranolol HCl (Inderal) 10 Mg Tab, 10 MG PO DAILY, #30 TAB 0 Refills Prov:STIVEN CRAWLEY [facility] 02/19/24 Pantoprazole Sodium (Protonix) 40 Mg Tablet.dr, 40 MG PO BID, #60 TAB 0 Refills Prov:STIVEN CRAWLEY [facility] 02/19/24 Multivitamins,Therapeutic (Multivitamin Tablet) 400 Mcg Tab, 1 TAB PO DAILY, #30 TAB 0 Refills Prov:STIVEN CRAWLEY [facility] 02/19/24 Lactulose (Cephulac/Enulose Soln) 20 Gram/30 Ml Soln, 20 GM PO DAILY, #1 BOTTLE Prov:STIVEN CRAWLEY [facility] 02/19/24 Furosemide (Lasix 20Mg Tab) 20 Mg Tablet, 20 MG PO DAILY, #30 TAB Prov:STIVEN CRAWLEY [facility] 02/19/24 INPATIENT MEDS: Current Medications Medications Dose Ordered Sig/Maciej Start Time Stop Time Status Last Admin Lactulose 30 gm TID 03/15/25 21:00 04/14/25 20:59 03/15/25 20:59 Quetiapine Fumarate 25 mg ONCE 03/15/25 20:00 03/16/25 19:59 03/15/25 20:58 Haloperidol 0.5 mg Q4H4 PRN 03/15/25 20:00 04/14/25 19:59 VITAL SIGNS Vital Signs Date Time Temp Pulse Resp B/P (MAP) Pulse Ox O2 Delivery O2 Flow Rate FiO2 03/15/25 20:04 97.5 90 18 147/79 100 Room Air 03/15/25 16:40 Room Air* 0 21 03/15/25 16:40 98.4 116 21 138/70 95 Room Air 21 11/3/25 16:25 98.2 108 17 135/63 99 Room Air* 0 21 03/15/25 13:11 98.2 113 16 148/62 100 Room Air* 0 21 03/15/25 10:25 98.2 119 16 148/77 100 Room Air* 0 21 03/15/25 07:00 93.6 108 16 160/83 100 Room Air* 0 21 03/15/25 06:48 96.6 109 18 122/82 100 Room Air 0 PHYSICAL EXAM General: awake, appears confused Head/Face: Normocephalic, atraumatic Eyes: PERRL, EOMI, vision at baseline ENT: oral cavity clear, TMs clear, no signs of infection Neck: Trachea midline, supple, no nuchal rigidity Cardiovascular: RRR, normal S1/S2, No MRGs, no JVD Respiratory: CTAB, no respiratory distress, No rales or wheezes Abdomen: Soft, non-tender, non-distended, normal bowel sounds, no guarding or rebound. Skin: Warm, dry, normal turgor, no rash MS/Extremity: Pulses equal, no cyanosis, neurovascular intact, FROM Neuro: Confused, normal strength moves all extremity LABORATORY RESULTS Laboratory Tests 03/15/25 07:31: White Blood Count 11.8, Red Blood Count 3.44, Hemoglobin 9.5, Hematocrit 30.1, Mean Corpuscular Volume 87.5, Mean Corpuscular Hemoglobin 27.6, Mean Corpuscular Hemoglobin Concent 31.6, Red Cell Distribution Width 19.8, Platelet Count 157, Mean Platelet Volume 8.5, Immature Granulocyte % (Auto) 0.4, Neutrophils (%) (Auto) 89.7, Lymphocytes (%) (Auto) 4.4, Monocytes (%) (Auto) 5.2, Eosinophils (%) (Auto) 0.1, Basophils (%) (Auto) 0.2, Neutrophils # (Auto) 10.6, Lymphocytes # (Auto) 0.5, Monocytes # (Auto) 0.6, Eosinophils # (Auto) 0.01, Basophils # (Auto) 0.02, Absolute Immature Granulocyte (auto 0.05, Nucleated Red Blood Cells 0.0, White Cell Morphology Comment See comments, Red Blood Cell Morphology See comments, Prothrombin Time 13.6, Prothromb Time International Ratio 1.32, Activated Partial Thromboplast Time 27.0, Sodium Level 141, Potassium Level 3.8, Chloride Level 108, Carbon Dioxide Level 25, Blood Urea Nitrogen 23, Creatinine 0.8, Glomerular Filtration Rate Calc 101, Random Glucose 110, Lactic Acid Level 3.7, Total Calcium 7.8, Total Bilirubin 1.8, Direct Bilirubin 0.8, Aspartate Amino Transf (AST/SGOT) 64, Alanine Aminotransferase (ALT/SGPT) 40, Alkaline Phosphatase 179, Ammonia 181, Total Creatine Kinase 793, Troponin I High Sensitivity 27, Total Protein 6.1, Albumin 1.9, Serum Alcohol < 3 03/15/25 12:45: Lactic Acid Level 2.9 PROBLEM LIST: (1) Uncontrolled diabetes mellitus (2) Cirrhosis ICD Codes: K74.60 - Unspecified cirrhosis of liver (3) Hepatic encephalopathy ICD Codes: K76.82 - Hepatic encephalopathy (4) Altered mental status ICD Codes: R41.82 - Altered mental status, unspecified PLAN resume lactulose and monitor KARI VERDUZCO MD Mar 15, 2025 22:10
[2025-03-16] VITALS (7 sets, daily range): BP systolic 112–139; BP diastolic 48–75; PULSE 87–108; RESP 18–21; TEMP 97.5–98.3; O2SAT 97–100
[2025-03-16 08:11] LABS: NUCLEATED RED BLOOD CELLS 0.0 % (0.0-0.19); PLATELET COUNT (AUTO) 140.0 K/uL (130-400); RED BLOOD CELL COUNT(AUTO) 3.12 MIL/uL (4.50-6.20); RED CELL DISTRIBUTION WIDTH 19.8 % (11.0-15.5); WHITE BLOOD COUNT (AUTO) 8.0 K/uL (4.8-10.8)
[2025-03-16 08:18] LABS: ASPARTATE AMINOTRANSFERASE 82.0 U/L (10-37); CREATININE 0.7 mg/dL (0.5-1.3); GLOMERULAR FILTR. RATE CALC 105.0 mL/min (>90); GLUCOSE,RANDOM 78.0 mg/dL (70-105); SODIUM SERUM 143.0 mmol/L (136-145); TOTAL PROTEIN, SERUM 4.8 g/dL (6.0-8.3); UREA NITROGEN, BLOOD 23.0 mg/dL (7-18)
[2025-03-16] MEDS ORDERED: PHARMACY COMMUNICATION MISC SCH (10:30)
--- NOTE | 2025-03-16 13:32 | NUR ---
[facility] Consult: Patient assessed by wound healing team. See wound assessment. Assessment and recommendations provided to primary nurse. Education provided to patient r/t to wound, and pressure ulcer prevention, and wound care treatment. Wound care done.
[2025-03-16] MEDS: ALBUMIN HUMAN 25% 300 ML IV SCH (15:22)
--- NOTE | 2025-03-16 15:28 | CONS ---
CONSULTATION NOTE Date of Service: Mar 16, 2025 Reason for Consultation: [ lower extremity wounds ] Requesting Physician: [Dr. Saxena ] HISTORY OF PRESENT ILLNESS: Patient is evaluated at bedside in room 316 for wound care evaluation. The patient is a 59-year-old male presenting to the emergency department by EMS for altered mental status family gave history of liver disease, and similar episodes in the past was found outside on the floor. REVIEW OF SYSTEMS CONSTITUTIONAL: Denies fever, chills, or fatigue. HEAD/FACE: No signs of trauma. EENT: Denies eye pain, blurred vision, double vision, or light sensitivity. RESPIRATORY: Denies shortness of breath, cough, wheezing CARDIOVASCULAR: Denies chest pain, palpitation, syncope GASTROINTESTINAL/ABDOMINAL: Denies abdominal pain, constipation, diarrhea, nausea or vomiting GENITOURINARY: Denies dysuria or hematuria. MUSCULOSKELETAL: Denies joint pain, tenderness, or trauma. INTEGUMENTARY: Denies rash or itchiness NEUROLOGICAL/PSYCH: Denies anxiety, depression, heat or cold intolerance. Past Medical History Past Medical History: Anemia, Diabetes-Type II, Hypertension, Liver Disease Additional Past Medical Hx: CIRRHOSIS Surgical History Other: RLE WOUND GRAFT, PARACENTESIS Coded Allergies: bee venom protein (honey bee) (Unverified Allergy, Unknown, 06/30/24) PHYSICAL EXAM EYES: Sclera icterus. Pupils equal and reactive. HENT: No oral thrush seen, moist Oral mucosa NECK: Supple, no JVD or thyromegaly. LUNGS: Good air entry. No rales, no rhonchi. CARDIOVASCULAR: S1, S2 regular. No murmur heard. ABDOMEN: Soft, non tender, bowel sounds present, no organomegaly CENTRAL NERVOUS SYSTEM: Awake, alert, oriented x 2. No focal deficits. SKIN: Left lower leg noted with lateral ulcer x 2 with 100% slough and periwound erythema with serous drainage, no foul odor noted. Left posterior leg ulcer noted with 100% granulation, moderate amount of serous drainage. Left and right upper arm noted with skin tear with granulation noted. LYMPHATICS: No peripheral lymphadenopathy MUSCULOSKELETAL: No joint swelling, erythema or tenderness. EXTREMITIES: No cyanosis or clubbing BACK: No deformity, no pressure ulcer. GENITOURINARY: No dysuria or hematuria Vital Sign (Last 24 Hours) 03/15/25 03/16/25 19:50 12:00 Temp 97.5 Pulse 98 Resp 20 B/P (MAP) 116/74 Pulse Ox 100 O2 Delivery Room Air O2 Flow Rate 0 FiO2 21 LABS: Laboratory: Test 03/16/25 05:44 03/15/25 12:45 03/15/25 07:31 Range/Units White Blood Count 8.0 # 4.8-10.8 K/uL Red Blood Count 3.12 L 4.50-6.20 MIL/uL Hemoglobin 8.6 L 14.0-18.0 g/dL Hematocrit 27.2 L 42-54 % Mean Corpuscular Volume 87.2 79-99 fL Mean Corpuscular Hemoglobin 27.6 27.0-33.0 pg Mean Corpuscular Hemoglobin Concent 31.6 L 32.0-36.0 g/dL Red Cell Distribution Width 19.8 H 11.0-15.5 % Platelet Count 140 130-400 K/uL Mean Platelet Volume 9.0 7.5-10.5 fL Nucleated Red Blood Cells 0.0 0.0-0.19 % Sodium Level 143 136-145 mmol/L Potassium Level 3.2 L 3.5-5.1 mmol/L Chloride Level 112 H 101-111 mmol/L Carbon Dioxide Level 24 21-32 mmol/L Blood Urea Nitrogen 23 H 7-18 mg/dL Creatinine 0.7 0.5-1.3 mg/dL Glomerular Filtration Rate Calc 105 >90 mL/min Random Glucose 78 70-105 mg/dL Total Calcium 7.5 L 8.5-10.1 mg/dL Total Bilirubin 1.2 #H 0.2-1.0 mg/dL Aspartate Amino Transf (AST/SGOT) 82 H 10-37 U/L Alanine Aminotransferase (ALT/SGPT) 38 12-78 U/L Alkaline Phosphatase 134 # 50-136 U/L Total Protein 4.8 #L 6.0-8.3 g/dL Albumin 1.4 #L 3.5-5.0 g/dL Lactic Acid Level 2.9 H 0.8-2.5 mmol/L Immature Granulocyte % (Auto) 0.4 0-1 % Neutrophils (%) (Auto) 89.7 H 40.0-77.0 % Lymphocytes (%) (Auto) 4.4 L 21.0-51.0 % Monocytes (%) (Auto) 5.2 3.0-13.0 % Eosinophils (%) (Auto) 0.1 0.0-8.0 % Basophils (%) (Auto) 0.2 0.0-5.0 % Neutrophils # (Auto) 10.6 H 1.8-7.7 K/uL Lymphocytes # (Auto) 0.5 L 1.0-4.8 K/uL Monocytes # (Auto) 0.6 0.1-1.0 K/uL Eosinophils # (Auto) 0.01 0.00-0.70 K/uL Basophils # (Auto) 0.02 0.00-0.20 K/uL Absolute Immature Granulocyte (auto 0.05 0-1 K/uL White Cell Morphology Comment See comments Red Blood Cell Morphology See comments Prothrombin Time 13.6 H 9.6-11.6 SEC Prothromb Time International Ratio 1.32 H 0.85-1.15 Activated Partial Thromboplast Time 27.0 26.3-35.5 SEC Direct Bilirubin 0.8 H 0.0-0.3 mg/dL Ammonia 181 *H 11-32 umol/L Total Creatine Kinase 793 #*H 21-232 U/L Troponin I High Sensitivity 27 4-75 ng/L Serum Alcohol < 3 0-10 mg/dL DIAGNOSTICS / RADIOLOGY: [ ] PROBLEM LIST : Medical Problems: Unspecified open wound to left upper arm Unspecified open wound to right upper arm Chronic venous hypertension with ulcer to left lower leg 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 Thank You for the consult and allowing us to participate in the care of this patient. ATTESTATION BY PHYSICIAN I have seen and examined the patient. I reviewed the documentation, medical decision making, and treatment plan as noted by the mid-level provider above. I agree with the findings and plan of care. MADDISON KC MD, [facility] Mar 16, 2025 15:28
--- NOTE | 2025-03-16 15:57 | PN ---
PROGRESS NOTE PROGRESS NOTE DATE OF PROGRESS NOTE: 03/16/25 SUBJECTIVE: no new complaints VITAL SIGNS Vital Signs Date Time Temp Pulse Resp B/P (MAP) Pulse Ox O2 Delivery O2 Flow Rate FiO2 03/16/25 12:00 97.5 98 20 116/74 100 Room Air 21 03/15/25 19:50 0 PHYSICAL EXAM: General: awake, appears confused Head/Face: Normocephalic, atraumatic Eyes: PERRL, EOMI, vision at baseline ENT: oral cavity clear, TMs clear, no signs of infection Neck: Trachea midline, supple, no nuchal rigidity Cardiovascular: RRR, normal S1/S2, No MRGs, no JVD Respiratory: CTAB, no respiratory distress, No rales or wheezes Abdomen: Soft, non-tender, non-distended, normal bowel sounds, no guarding or rebound. Skin: Warm, dry, normal turgor, no rash MS/Extremity: Pulses equal, no cyanosis, neurovascular intact, FROM Neuro: Confused, normal strength moves all extremity LABORATORY: Laboratory Result(s) Test 03/16/25 05:44 White Blood Count 8.0 K/uL (4.8-10.8) Red Blood Count 3.12 MIL/uL (4.50-6.20) Hemoglobin 8.6 g/dL (14.0-18.0) Hematocrit 27.2 % (42-54) Mean Corpuscular Volume 87.2 fL (79-99) Mean Corpuscular Hemoglobin 27.6 pg (27.0-33.0) Mean Corpuscular Hemoglobin Concent 31.6 g/dL (32.0-36.0) Red Cell Distribution Width 19.8 % (11.0-15.5) Platelet Count 140 K/uL (130-400) Mean Platelet Volume 9.0 fL (7.5-10.5) Nucleated Red Blood Cells 0.0 % (0.0-0.19) Sodium Level 143 mmol/L (136-145) Potassium Level 3.2 mmol/L (3.5-5.1) Chloride Level 112 mmol/L (101-111) Carbon Dioxide Level 24 mmol/L (21-32) Blood Urea Nitrogen 23 mg/dL (7-18) Creatinine 0.7 mg/dL (0.5-1.3) Glomerular Filtration Rate Calc 105 mL/min (>90) Random Glucose 78 mg/dL (70-105) Total Calcium 7.5 mg/dL (8.5-10.1) Total Bilirubin 1.2 mg/dL (0.2-1.0) Aspartate Amino Transf (AST/SGOT) 82 U/L (10-37) Alanine Aminotransferase (ALT/SGPT) 38 U/L (12-78) Alkaline Phosphatase 134 U/L (50-136) Total Protein 4.8 g/dL (6.0-8.3) Albumin 1.4 g/dL (3.5-5.0) INPATIENT MEDS: Current Medications Medications Dose Ordered Sig/Maciej Start Time Stop Time Status Last Admin Lactulose 30 gm TID 03/15/25 21:00 04/14/25 20:59 03/16/25 15:22 Haloperidol 0.5 mg Q4H4 PRN 03/15/25 20:00 04/14/25 19:59 Ceftriaxone Sodium 1 gm Q24H 03/16/25 12:00 03/26/25 11:59 03/16/25 15:21 Bacitracin left and right arm wounds [id number] 03/16/25 18:00 04/15/25 17:59 PROBLEM LIST: (1) Uncontrolled diabetes mellitus (2) Cirrhosis ICD Code: K74.60 - Unspecified cirrhosis of liver (3) Hepatic encephalopathy ICD Code: K76.82 - Hepatic encephalopathy (4) Altered mental status ICD Code: R41.82 - Altered mental status, unspecified PLAN: resume lactulose and monitor KARI VERDUZCO MD Mar 16, 2025 15:57
[2025-03-16] MEDS: BACITRACIN 28.4 GM OINT TP SCH (18:00)
[2025-03-17] VITALS (9 sets, daily range): BP systolic 118–162; BP diastolic 63–91; PULSE 82–105; RESP 17–20; TEMP 97.5–98.1; O2SAT 98–99
[2025-03-17] MEDS ORDERED: PoTASSium chl 10% ELIXIR 20MEQ 20 MEQ/15 ML UDCUP PO PRN (01:00)
[2025-03-17] MEDS: PoTASSium chloRIDE 20MEQ ER 20 MEQ ERTAB PO PRN (03:46)
[2025-03-17 05:52] LABS: IMMATURE GRANULOCYTE ABSOLUTE 0.02 K/uL (0-1); NUCLEATED RED BLOOD CELLS 0.0 % (0.0-0.19); PLATELET COUNT (AUTO) 140 K/uL (130-400); RED BLOOD CELL COUNT(AUTO) 3.22 MIL/uL (4.50-6.20); RED CELL DISTRIBUTION WIDTH 19.6 % (11.0-15.5); WHITE BLOOD COUNT (AUTO) 5.5 K/uL (4.8-10.8)
[2025-03-17 06:11] LABS: ASPARTATE AMINOTRANSFERASE 63.0 U/L (10-37); CREATININE 0.7 mg/dL (0.5-1.3); GLOMERULAR FILTR. RATE CALC 105.0 mL/min (>90); GLUCOSE,RANDOM 96.0 mg/dL (70-105); SODIUM SERUM 138.0 mmol/L (136-145); TOTAL PROTEIN, SERUM 4.8 g/dL (6.0-8.3); UREA NITROGEN, BLOOD 19.0 mg/dL (7-18)
--- NOTE | 2025-03-17 20:49 | PN ---
PROGRESS NOTE PROGRESS NOTE DATE OF PROGRESS NOTE: 03/17/25 SUBJECTIVE: Improved confusion VITAL SIGNS Vital Signs Date Time Temp Pulse Resp B/P (MAP) Pulse Ox O2 Delivery O2 Flow Rate FiO2 03/17/25 16:06 98.1 82 20 145/91 100 Room Air 03/17/25 08:00 0 21 PHYSICAL EXAM: General: awake, appears confused Head/Face: Normocephalic, atraumatic Eyes: PERRL, EOMI, vision at baseline ENT: oral cavity clear, TMs clear, no signs of infection Neck: Trachea midline, supple, no nuchal rigidity Cardiovascular: RRR, normal S1/S2, No MRGs, no JVD Respiratory: CTAB, no respiratory distress, No rales or wheezes Abdomen: Soft, non-tender, non-distended, normal bowel sounds, no guarding or rebound. Skin: Warm, dry, normal turgor, no rash MS/Extremity: Pulses equal, no cyanosis, neurovascular intact, FROM Neuro: Confused, normal strength moves all extremity LABORATORY: Laboratory Result(s) Test 03/17/25 05:40 03/17/25 20:06 White Blood Count 5.5 K/uL (4.8-10.8) Red Blood Count 3.22 MIL/uL (4.50-6.20) Hemoglobin 8.9 g/dL (14.0-18.0) Hematocrit 28.5 % (42-54) Mean Corpuscular Volume 88.5 fL (79-99) Mean Corpuscular Hemoglobin 27.6 pg (27.0-33.0) Mean Corpuscular Hemoglobin Concent 31.2 g/dL (32.0-36.0) Red Cell Distribution Width 19.6 % (11.0-15.5) Platelet Count 140 K/uL (130-400) Mean Platelet Volume 8.6 fL (7.5-10.5) Immature Granulocyte % (Auto) 0.4 % (0-1) Neutrophils (%) (Auto) 62.0 % (40.0-77.0) Lymphocytes (%) (Auto) 19.5 % (21.0-51.0) Monocytes (%) (Auto) 13.2 % (3.0-13.0) Eosinophils (%) (Auto) 4.2 % (0.0-8.0) Basophils (%) (Auto) 0.7 % (0.0-5.0) Neutrophils # (Auto) 3.4 K/uL (1.8-7.7) Lymphocytes # (Auto) 1.1 K/uL (1.0-4.8) Monocytes # (Auto) 0.7 K/uL (0.1-1.0) Eosinophils # (Auto) 0.23 K/uL (0.00-0.70) Basophils # (Auto) 0.04 K/uL (0.00-0.20) Absolute Immature Granulocyte (auto 0.02 K/uL (0-1) Nucleated Red Blood Cells 0.0 % (0.0-0.19) Sodium Level 138 mmol/L (136-145) Potassium Level 3.1 mmol/L (3.5-5.1) Chloride Level 108 mmol/L (101-111) Carbon Dioxide Level 25 mmol/L (21-32) Blood Urea Nitrogen 19 mg/dL (7-18) Creatinine 0.7 mg/dL (0.5-1.3) Glomerular Filtration Rate Calc 105 mL/min (>90) Random Glucose 96 mg/dL (70-105) Total Calcium 7.5 mg/dL (8.5-10.1) Total Bilirubin 1.2 mg/dL (0.2-1.0) Aspartate Amino Transf (AST/SGOT) 63 U/L (10-37) Alanine Aminotransferase (ALT/SGPT) 31 U/L (12-78) Alkaline Phosphatase 119 U/L (50-136) Total Protein 4.8 g/dL (6.0-8.3) Albumin 2.2 g/dL (3.5-5.0) Whole Blood Glucose 90 MG/DL (70-110) INPATIENT MEDS: Current Medications Medications Dose Ordered Sig/Maciej Start Time Stop Time Status Last Admin Lactulose 30 gm TID 03/15/25 21:00 04/14/25 20:59 03/17/25 20:47 Haloperidol 0.5 mg Q4H4 PRN 03/15/25 20:00 04/14/25 19:59 Ceftriaxone Sodium 1 gm Q24H 03/16/25 12:00 03/26/25 11:59 03/17/25 11:37 Bacitracin left and right arm wounds [id number] 03/16/25 18:00 04/15/25 17:59 03/17/25 17:29 Potassium Chloride 100 ml @ 100 mls/hr AD PRN 03/17/25 01:00 04/16/25 00:59 Potassium Chloride 20 meq AD PRN 03/17/25 01:00 04/16/25 00:59 Potassium Chloride 20 meq AD PRN 03/17/25 01:00 04/16/25 00:59 03/17/25 20:47 PROBLEM LIST: (1) Uncontrolled diabetes mellitus (2) Cirrhosis ICD Code: K74.60 - Unspecified cirrhosis of liver (3) Hepatic encephalopathy ICD Code: K76.82 - Hepatic encephalopathy (4) Altered mental status ICD Code: R41.82 - Altered mental status, unspecified PLAN: resume lactulose and monitor hepatic encephalopathy and discharge planning in 24 hours KARI VERDUZCO MD Mar 17, 2025 20:49
[2025-03-18] VITALS (7 sets, daily range): BP systolic 113–141; BP diastolic 68–79; PULSE 80–100; RESP 17–19; TEMP 98.1–98.6; O2SAT 96
[2025-03-18 05:25] LABS: IMMATURE GRANULOCYTE ABSOLUTE 0.02 K/uL (0-1); NUCLEATED RED BLOOD CELLS 0.0 % (0.0-0.19); PLATELET COUNT (AUTO) 147 K/uL (130-400); RED BLOOD CELL COUNT(AUTO) 3.11 MIL/uL (4.50-6.20); RED CELL DISTRIBUTION WIDTH 19.3 % (11.0-15.5); WHITE BLOOD COUNT (AUTO) 5.6 K/uL (4.8-10.8)
[2025-03-18 05:39] LABS: ASPARTATE AMINOTRANSFERASE 57.0 U/L (10-37); CREATININE 0.9 mg/dL (0.5-1.3); GLOMERULAR FILTR. RATE CALC 98.0 mL/min (>90); GLUCOSE,RANDOM 95.0 mg/dL (70-105); SODIUM SERUM 134.0 mmol/L (136-145); TOTAL PROTEIN, SERUM 4.8 g/dL (6.0-8.3); UREA NITROGEN, BLOOD 18.0 mg/dL (7-18)
[2025-03-18] MEDS ORDERED: MAG/ALUM/SIMETH 30 ML UDCUP PO ONE (09:00)
--- NOTE | 2025-03-18 09:14 | EKG ---
[facility] Test Date: 2025-03-18 Test Time: 09:11:38 Pat Name: RALPH SHAY Department: [facility] Room: 316 1 Gender: M Digital Recruiter: [id number] : 1965 Requested By: KARI VERDUZCO Order Number: [id number] Reading MD: Amy Oliva Measurements Intervals [place] Rate: 95 P: 11 [place]: 150 QRS: -18 QRSD: 60 T: 2 QT: 356 QTc: 447 Interpretive Statements Normal sinus rhythm Inferior infarct , age undetermined Cannot rule out Anterior infarct , age undetermined Compared to ECG 03/15/2025 07:31:11 Myocardial infarct finding now present Sinus tachycardia no longer present Atrial premature complex(es) no longer present Electronically Signed On 03-18-2025 12:27:18 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
--- NOTE | 2025-03-18 13:19 | PN ---
PROGRESS NOTE PROGRESS NOTE DATE OF PROGRESS NOTE: 03/18/25 SUBJECTIVE: Patient has recovered from hepatic encephalopathy complains of chest pain which appears noncardiac VITAL SIGNS Vital Signs Date Time Temp Pulse Resp B/P (MAP) Pulse Ox O2 Delivery O2 Flow Rate FiO2 03/18/25 11:04 98.6 89 19 127/68 98 Room Air 03/18/25 04:00 21 03/17/25 19:58 0 PHYSICAL EXAM: General: awake, appears confused Head/Face: Normocephalic, atraumatic Eyes: PERRL, EOMI, vision at baseline ENT: oral cavity clear, TMs clear, no signs of infection Neck: Trachea midline, supple, no nuchal rigidity Cardiovascular: RRR, normal S1/S2, No MRGs, no JVD Respiratory: CTAB, no respiratory distress, No rales or wheezes Abdomen: Soft, non-tender, non-distended, normal bowel sounds, no guarding or rebound. Skin: Warm, dry, normal turgor, no rash MS/Extremity: Pulses equal, no cyanosis, neurovascular intact, FROM Neuro: Confused, normal strength moves all extremity LABORATORY: Laboratory Result(s) Test 03/17/25 20:06 03/18/25 05:08 03/18/25 05:41 03/18/25 09:35 Whole Blood Glucose 90 MG/DL (70-110) 88 MG/DL (70-110) White Blood Count 5.6 K/uL (4.8-10.8) Red Blood Count 3.11 MIL/uL (4.50-6.20) Hemoglobin 8.9 g/dL (14.0-18.0) Hematocrit 27.8 % (42-54) Mean Corpuscular Volume 89.4 fL (79-99) Mean Corpuscular Hemoglobin 28.6 pg (27.0-33.0) Mean Corpuscular Hemoglobin Concent 32.0 g/dL (32.0-36.0) Red Cell Distribution Width 19.3 % (11.0-15.5) Platelet Count 147 K/uL (130-400) Mean Platelet Volume 8.3 fL (7.5-10.5) Immature Granulocyte % (Auto) 0.4 % (0-1) Neutrophils (%) (Auto) 57.9 % (40.0-77.0) Lymphocytes (%) (Auto) 23.4 % (21.0-51.0) Monocytes (%) (Auto) 13.4 % (3.0-13.0) Eosinophils (%) (Auto) 3.8 % (0.0-8.0) Basophils (%) (Auto) 1.1 % (0.0-5.0) Neutrophils # (Auto) 3.3 K/uL (1.8-7.7) Lymphocytes # (Auto) 1.3 K/uL (1.0-4.8) Monocytes # (Auto) 0.8 K/uL (0.1-1.0) Eosinophils # (Auto) 0.21 K/uL (0.00-0.70) Basophils # (Auto) 0.06 K/uL (0.00-0.20) Absolute Immature Granulocyte (auto 0.02 K/uL (0-1) Nucleated Red Blood Cells 0.0 % (0.0-0.19) Sodium Level 134 mmol/L (136-145) Potassium Level 4.1 mmol/L (3.5-5.1) Chloride Level 107 mmol/L (101-111) Carbon Dioxide Level 23 mmol/L (21-32) Blood Urea Nitrogen 18 mg/dL (7-18) Creatinine 0.9 mg/dL (0.5-1.3) Glomerular Filtration Rate Calc 98 mL/min (>90) Random Glucose 95 mg/dL (70-105) Total Calcium 7.4 mg/dL (8.5-10.1) Total Bilirubin 0.8 mg/dL (0.2-1.0) Aspartate Amino Transf (AST/SGOT) 57 U/L (10-37) Alanine Aminotransferase (ALT/SGPT) 33 U/L (12-78) Alkaline Phosphatase 135 U/L (50-136) Ammonia 82 umol/L (11-32) Total Protein 4.8 g/dL (6.0-8.3) Albumin 1.8 g/dL (3.5-5.0) Troponin I High Sensitivity 13 ng/L (4-75) INPATIENT MEDS: Current Medications Medications Dose Ordered Sig/Maciej Start Time Stop Time Status Last Admin Lactulose 30 gm TID 03/15/25 21:00 04/14/25 20:59 03/17/25 20:47 Haloperidol 0.5 mg Q4H4 PRN 03/15/25 20:00 04/14/25 19:59 Ceftriaxone Sodium 1 gm Q24H 03/16/25 12:00 03/26/25 11:59 03/17/25 11:37 Bacitracin left and right arm wounds [id number] 03/16/25 18:00 04/15/25 17:59 03/17/25 17:29 Potassium Chloride 100 ml @ 100 mls/hr AD PRN 03/17/25 01:00 04/16/25 00:59 Potassium Chloride 20 meq AD PRN 03/17/25 01:00 04/16/25 00:59 Potassium Chloride 20 meq AD PRN 03/17/25 01:00 04/16/25 00:59 03/17/25 20:47 PROBLEM LIST: (1) Uncontrolled diabetes mellitus (2) Cirrhosis ICD Code: K74.60 - Unspecified cirrhosis of liver (3) Hepatic encephalopathy ICD Code: K76.82 - Hepatic encephalopathy (4) Altered mental status ICD Code: R41.82 - Altered mental status, unspecified PLAN: Hepatic encephalopathy improved with lactulose Noncardiac chest pain however EKG cardiac enzymes to be done trial of Maalox and Protonix and follow-through EKG unremarkable KARI VERDUZCO MD Mar 18, 2025 13:19
--- NOTE | 2025-03-18 15:30 | NUR ---
[facility] Follow-up: Patient re-assessed by wound healing team, Wound improving. Assessment and recommendations provided to primary nurse Education provided. Wound care done.
--- NOTE | 2025-03-18 16:48 | NUR ---
Discharge Update: D/C on hold d/t patient has new c/o chest pain. Troponins so far are negative.
--- NOTE | 2025-03-18 17:04 | PN ---
PROGRESS NOTE Date of Service: Mar 18, 2025 Time of Service: 16:59 SUBJECTIVE: Patient is evaluated at bedside in room 316 for wound care follow up. Patient is awake, alert, oriented x 3. No signs of distress noted. REVIEW OF SYSTEMS CONSTITUTIONAL: Denies fever, chills, or fatigue. HEAD/FACE: No signs of trauma. EENT: Denies eye pain, blurred vision, double vision, or light sensitivity. RESPIRATORY: Denies shortness of breath, cough, wheezing CARDIOVASCULAR: Denies chest pain, palpitation, syncope GASTROINTESTINAL/ABDOMINAL: Denies abdominal pain, constipation, diarrhea, nausea or vomiting GENITOURINARY: Denies dysuria or hematuria. MUSCULOSKELETAL: Denies joint pain, tenderness, or trauma. INTEGUMENTARY: Denies rash or itchiness NEUROLOGICAL/PSYCH: Denies anxiety, depression, heat or cold intolerance. PHYSICAL EXAM EYES: Mild Sclera icterus. Pupils equal and reactive. HENT: No oral thrush seen, moist Oral mucosa NECK: Supple, no JVD or thyromegaly. LUNGS: Good air entry. No rales, no rhonchi. CARDIOVASCULAR: S1, S2 regular. No murmur heard. ABDOMEN: Soft, non tender, bowel sounds present, no organomegaly CENTRAL NERVOUS SYSTEM: Awake, alert, oriented x 3. No focal deficits. SKIN: Left lower leg noted with lateral ulcer x 2 with 80% slough and 20% granulation with mild periwound erythema with serous drainage, no foul odor noted. Left posterior leg ulcer noted with 100% granulation, moderate amount of serous drainage. Left and right upper arm noted with skin tear with granulation noted. LYMPHATICS: No peripheral lymphadenopathy MUSCULOSKELETAL: No joint swelling, erythema or tenderness. EXTREMITIES: No cyanosis or clubbing BACK: No deformity, no pressure ulcer. GENITOURINARY: No dysuria or hematuria Vital Signs (last 8hr) Date Time Temp Pulse Resp B/P (MAP) Pulse Ox O2 Delivery O2 Flow Rate FiO2 03/18/25 15:32 98.4 95 18 136/74 97 Room Air 03/18/25 11:04 98.6 89 19 127/68 98 Room Air LABS: Laboratory: Test 03/18/25 15:12 03/18/25 05:41 03/18/25 05:08 Range/Units Troponin I High Sensitivity 12 4-75 ng/L Whole Blood Glucose 88 70-110 MG/DL White Blood Count 5.6 4.8-10.8 K/uL Red Blood Count 3.11 L 4.50-6.20 MIL/uL Hemoglobin 8.9 L 14.0-18.0 g/dL Hematocrit 27.8 L 42-54 % Mean Corpuscular Volume 89.4 79-99 fL Mean Corpuscular Hemoglobin 28.6 27.0-33.0 pg Mean Corpuscular Hemoglobin Concent 32.0 32.0-36.0 g/dL Red Cell Distribution Width 19.3 H 11.0-15.5 % Platelet Count 147 130-400 K/uL Mean Platelet Volume 8.3 7.5-10.5 fL Immature Granulocyte % (Auto) 0.4 0-1 % Neutrophils (%) (Auto) 57.9 40.0-77.0 % Lymphocytes (%) (Auto) 23.4 21.0-51.0 % Monocytes (%) (Auto) 13.4 H 3.0-13.0 % Eosinophils (%) (Auto) 3.8 0.0-8.0 % Basophils (%) (Auto) 1.1 0.0-5.0 % Neutrophils # (Auto) 3.3 1.8-7.7 K/uL Lymphocytes # (Auto) 1.3 1.0-4.8 K/uL Monocytes # (Auto) 0.8 0.1-1.0 K/uL Eosinophils # (Auto) 0.21 0.00-0.70 K/uL Basophils # (Auto) 0.06 0.00-0.20 K/uL Absolute Immature Granulocyte (auto 0.02 0-1 K/uL Nucleated Red Blood Cells 0.0 0.0-0.19 % Sodium Level 134 L 136-145 mmol/L Potassium Level 4.1 3.5-5.1 mmol/L Chloride Level 107 101-111 mmol/L Carbon Dioxide Level 23 21-32 mmol/L Blood Urea Nitrogen 18 7-18 mg/dL Creatinine 0.9 0.5-1.3 mg/dL Glomerular Filtration Rate Calc 98 >90 mL/min Random Glucose 95 70-105 mg/dL Total Calcium 7.4 L 8.5-10.1 mg/dL Total Bilirubin 0.8 # 0.2-1.0 mg/dL Aspartate Amino Transf (AST/SGOT) 57 H 10-37 U/L Alanine Aminotransferase (ALT/SGPT) 33 12-78 U/L Alkaline Phosphatase 135 50-136 U/L Ammonia 82 H 11-32 umol/L Total Protein 4.8 L 6.0-8.3 g/dL Albumin 1.8 L 3.5-5.0 g/dL DIAGNOSTICS / RADIOLOGY: [ ] PROBLEM LIST : Medical Problems: Unspecified open wound to left upper arm Unspecified open wound to right upper arm Chronic venous hypertension with ulcer to left lower leg 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 Thank You for the consult and allowing us to participate in the care of this patient. DURAN RICHARD STAFFING PROGRAM MANAGER Mar 18, 2025 17:04
--- NOTE | 2025-03-18 18:00 | NUR ---
NURSING NOTE PATIENT STATED HE HAD ABDOMINAL PAIN AND IT WOULDN'T GO AWAY. I ASSESSED PATIENT A ABDOMEN WAS FIRM TO TOUCH WITH BELLY BUTTON POINTING OUT. PRIMARY WAS MADE AWARE OF FINDING AND STATING ' HE IS OVER HE CRISIS AND CAN GO HOME' PATIENT SAYS HE DOESN'T FEEL COMFORTABLE GOING HOME WITH PAIN AND DOESN'T WANT OT LEAVE WITHOUT TALKING TO DOCTOR.
[2025-03-18] MEDS: MAG/ALUM/SIMETH 30 ML UDCUP PO ONE (18:24)
--- NOTE | 2025-03-18 21:25 | NUR ---
MEDS SHIFT ASSESSMENT DONE, PLEASE REFER TO CHART. DUE MEDS ADMINISTERED,TOLERATED WELL. KEPT RESTED AND COMFORTABLE IN BED. CALL LIGHT WITHIN REACH. BED ALARM KEPT ACTIVATED. SITTER KEEPING CLOSE WATCH ON PT.
[2025-03-18 21:57] LABS: APPEARANCE,URINE CLEAR (CLEAR); GLUCOSE, URINE (UA) NEGATIVE (NEGATIVE); LEUKOCYTE ESTERASE ,URINE 25 Leu/uL (NEGATIVE); NITRATE,URINE NEGATIVE (NEGATIVE); OCCULT BLOOD,URINE NEGATIVE (NEGATIVE)
[2025-03-18 21:59] LABS: ADD UA MICROSCOPIC YES
[2025-03-18 22:08] LABS: SQUAMOUS EPITHELIAL CELL,UR Moderate /HPF (0-2)
[2025-03-19] VITALS (8 sets, daily range): BP systolic 122–142; BP diastolic 70–83; PULSE 85–112; RESP 18–19; TEMP 97.5–98.7; O2SAT 93–97
[2025-03-19 04:45] LABS: INR 1.36 (0.85-1.15)
--- NOTE | 2025-03-19 06:10 | NUR ---
ROUNDS PT SLEPT AT INTERVALS DURING THE SHIFT. NO DISTRESS NOTED. NO CONCERNS VERBALIZED. KEPT COMFORTABLE. FOR MORE CARE.
--- NOTE | 2025-03-19 20:15 | NUR ---
MEDS SHIFT ASSESSMENT DONE, PLEASE REFER TO CHART. DUE MEDS ADMINISTERED, TOLERATED WELL. KEPT RESTED AND COMFORTABLE IN BED. CALL LIGHT WITHIN REACH. KEPT BED ALARM ACTIVATED. SITTER KEEPING CLOSE WATCH ON PT.
[2025-03-20] VITALS (8 sets, daily range): BP systolic 106–150; BP diastolic 69–85; PULSE 69–101; RESP 17–18; TEMP 97.5–98.2; O2SAT 94–96
--- NOTE | 2025-03-20 05:35 | NUR ---
ROUNDS PT SLEPT AT INTERVALS DURING THE SHIFT. NO DISTRESS NOTED. NO CONCERNS VERBALIZED. KEPT RESTED. FOR MORE CARE.
--- NOTE | 2025-03-20 06:35 | NUR ---
MD DR SCOTT IN TO SEE PT. NEW ORDERS GIVEN, PLEASE REFER TO CPOE.
[2025-03-20] MEDS: PROPRANOLOL HCL 10 MG TAB PO SCH (08:30)
[2025-03-20] MEDS: SPIRONOLACTONE 25 MG TAB PO SCH (08:30)
--- NOTE | 2025-03-20 20:18 | PN ---
SUBJECTIVE: The patient denies any chest pain or shortness of breath. OBJECTIVE: VITAL SIGNS: Blood pressure is 106/60, pulse 60, respirations 16. LUNGS: Mostly decreased breath sounds at the bases. No wheezing at this time. HEART: Regular rate and rhythm. ABDOMEN: Soft and nontender. LABORATORY DATA: Hemoglobin 8.9. WBC is 5.6. Chemistry: Sugars are 133-146. ASSESSMENT AND PLAN: * Altered mental status changes, which appears to be improving at this time. * Cirrhosis with encephalopathy, which improved. * Diabetes mellitus, was stable. * The patient's overall condition is stable. * Probable discharge planning for the next 24 hours. TID: [id number] RECEIPT: [id number]
[2025-03-21] VITALS (8 sets, daily range): BP systolic 127–149; BP diastolic 66–82; PULSE 61–76; RESP 17–19; TEMP 98–98.6; O2SAT 96–99
[2025-03-21 06:05] LABS: NUCLEATED RED BLOOD CELLS 0.0 % (0.0-0.19); PLATELET COUNT (AUTO) 140.0 K/uL (130-400); RED BLOOD CELL COUNT(AUTO) 3.24 MIL/uL (4.50-6.20); RED CELL DISTRIBUTION WIDTH 18.7 % (11.0-15.5); WHITE BLOOD COUNT (AUTO) 8.5 K/uL (4.8-10.8)
[2025-03-21 06:31] LABS: ASPARTATE AMINOTRANSFERASE 42.0 U/L (10-37); CREATININE 0.8 mg/dL (0.5-1.3); GLOMERULAR FILTR. RATE CALC 101.0 mL/min (>90); GLUCOSE,RANDOM 126.0 mg/dL (70-105); SODIUM SERUM 129.0 mmol/L (136-145); TOTAL PROTEIN, SERUM 4.9 g/dL (6.0-8.3); UREA NITROGEN, BLOOD 16.0 mg/dL (7-18)
[2025-03-21] MEDS: MAGNESIUM 2GM PREMIX 50ML 50 ML IV PRN (09:29)
--- NOTE | 2025-03-21 10:09 | PN ---
SUBJECTIVE: The patient has increasing abdominal distention and some discomfort. No nausea, vomiting, or diarrhea. No hematemesis. REVIEW OF SYSTEMS: No chest pain or shortness of breath. OBJECTIVE: VITAL SIGNS: Significant for a blood pressure of 110/60, pulse 60, respirations 14. LUNGS: Mostly decreased breath sounds. No wheezing or rhonchi. HEART: Regular rate and rhythm. ABDOMEN: Distended. EXTREMITIES: +1 edema. ASSESSMENT AND PLAN: 1. Altered mental status changes, encephalopathy, hepatic encephalopathy, which has resolved. 2. Ascites: The patient is going to be scheduled for paracentesis, which will be done tomorrow. 3. Pedal edema, stable. Rest of the diagnosis remains same. TID: [id number] RECEIPT: [id number]
--- NOTE | 2025-03-21 11:38 | PN ---
SUBJECTIVE: The patient is scheduled to be discharged to SNF or home pending final arrangements. OBJECTIVE: GENERAL: He is currently comfortable in bed, not in distress. VITAL SIGNS: In the chart. HEENT: Normocephalic, atraumatic. LUNGS: Clear to auscultation. HEART: S1, S2 are distant. ABDOMEN: Prominent, soft, nontender. EXTREMITIES: No clubbing or cyanosis. LABORATORY DATA: Reviewed. ASSESSMENT: * Liver cirrhosis. Continue with current treatment. * Hepatic encephalopathy, resolved. Continue with lactulose. PLAN: To discharge when arrangements are completed. TID: [id number] RECEIPT: [id number]
--- NOTE | 2025-03-21 17:51 | NUR ---
INFORMED CONSENT OBTAINED FOR PARACENTESIS TOMORROW
[2025-03-22] VITALS (13 sets, daily range): BP systolic 121–157; BP diastolic 68–90; PULSE 67–84; RESP 16–20; TEMP 97.7–98.6; O2SAT 98
[2025-03-22 05:12] LABS: NUCLEATED RED BLOOD CELLS 0.0 % (0.0-0.19); PLATELET COUNT (AUTO) 150.0 K/uL (130-400); RED BLOOD CELL COUNT(AUTO) 3.32 MIL/uL (4.50-6.20); RED CELL DISTRIBUTION WIDTH 19.0 % (11.0-15.5); WHITE BLOOD COUNT (AUTO) 7.5 K/uL (4.8-10.8)
[2025-03-22 05:44] LABS: INR 1.25 (0.85-1.15)
[2025-03-22 05:50] LABS: ASPARTATE AMINOTRANSFERASE 49.0 U/L (10-37); CREATININE 0.9 mg/dL (0.5-1.3); GLOMERULAR FILTR. RATE CALC 98.0 mL/min (>90); GLUCOSE,RANDOM 145.0 mg/dL (70-105); SODIUM SERUM 131.0 mmol/L (136-145); TOTAL PROTEIN, SERUM 5.2 g/dL (6.0-8.3); UREA NITROGEN, BLOOD 16.0 mg/dL (7-18)
--- NOTE | 2025-03-22 10:25 | NUR ---
U/S GD PARACENTESIS PROCEDURE PERFORMED BY DR Jeannine KENT. PUNCTURE SITE RLQ AND PATIENT TOLERATED PROCEDURE WELL. TOTAL REMOVED 6.3 LITERS OF CLOUDY YELLOW FLUID. END OF PROCEDURE AT 0950. CATHETER REMOVED AND DRESSING APPLIED. NO BLEEDING NOTED. REPORT GIVEN TO VIDHI HAMM AND PATIENT TRANSPORTED TO [facility]. AAO X3 WITH NO C/O PAIN. SPECIMEN SENT TO LAB.
--- NOTE | 2025-03-22 11:12 | HMCIMG ---
US ABDOMINAL PARACENTESIS IR REASON: ASCITES This procedure was performed by Dr Nadira Martin MD PGY2 with Dr Campos TECHNIQUE: Paracentesis was performed with ultrasound guidance. The puncture site was selected in the Right lower quadrant and overlying skin prepped and draped in a sterile fashion. 1% Xylocaine infiltration was performed. Catheter was placed in the fluid using trocar technique. 6.3 were removed. Fluid sample was submitted for laboratory evaluation. The patient showed no evidence of complication during the procedure. The patient tolerated the procedure well IMPRESSION: 1. Ultrasound-guided paracentesis.
[2025-03-22] MEDS: ALBUMIN HUMAN 25% 200 ML IV SCH (11:33)
--- NOTE | 2025-03-22 16:44 | NUR ---
PATIENT DISCHARGED HOME ID BAND AND IV REMOVED. DISCHARGE INSTRUCTIONS EXPLAINED AND GIVEN TO PATIENT. PATIENT VERBALIZED UNDERSTANDING. BELONGINGS PACKED AND TAKEN BY PATIENT. WHEELED DOWN TO PRIVATE CAR.
--- NOTE | 2025-03-23 20:39 | DS ---
Discharge Summary DIAGNOSE(S): [Hepatic encephalopathy] HOSPITAL COURSE SUMMARY: [Patient did well with lactulose and had paracentesis and was discharged to be followed by his primary physician and advised complaints] CLIENT SERVICE EXECUTIVE(S): [] PROCEDURE(S)/TREATMENT(S): [] PROBLEM(S): [] FOLLOW-UP TEST(S): [None] DISCHARGE INSTRUCTIONS: [Follow up with PCP in 1-2 days] Home Meds Active Scripts Clindamycin HCl (Clindamycin HCl) 300 Mg Capsule, 1 CAP PO QID for 10 Days, #40 CAP 0 Refills Prov:PEREZ FITZGERALD MD 07/16/24 Azithromycin (Azithromycin) 500 Mg Tablet, 1 TAB PO DAILY for 5 Days, #5 TAB 0 Refills Prov:STIVEN CRAWLEY 05/12/24 Spironolactone (Spironolactone) 25 Mg Tablet, 25 MG PO BID, #60 TAB 0 Refills Prov:STIVEN CRAWLEY 02/19/24 Propranolol HCl (Inderal) 10 Mg Tab, 10 MG PO DAILY, #30 TAB 0 Refills Prov:STIVEN CRAWLEY 02/19/24 Pantoprazole Sodium (Protonix) 40 Mg Tablet.dr, 40 MG PO BID, #60 TAB 0 Refills Prov:STIVEN CRAWLEY 02/19/24 Multivitamins,Therapeutic (Multivitamin Tablet) 400 Mcg Tab, 1 TAB PO DAILY, #30 TAB 0 Refills Prov:STIVEN CRAWLEY 02/19/24 Lactulose (Cephulac/Enulose Soln) 20 Gram/30 Ml Soln, 20 GM PO DAILY, #1 BOTTLE Prov:STIVEN CRAWLEY 02/19/24 Furosemide (Lasix 20Mg Tab) 20 Mg Tablet, 20 MG PO DAILY, #30 TAB Prov:STIVEN CRAWLEY 02/19/24 KARI VERDUZCO MD Mar 23, 2025 20:39
== END 2025-03-22 16:45 | disposition home or self-care (01) | DRG 442 ==
LOC: EDH 06:44 → EDHIP 10:48 → 3CH 16:40
PROVIDERS: ADMIT Internal Medicine; ATTEND Internal Medicine
PROC: 0W9G3ZZ Drainage of Peritoneal Cavity, Percutaneous Approach (ICD-10-PCS; principal; 2025-03-17)
DX: K76.82 Hepatic encephalopathy (principal); I87.312 Chronic venous hypertension (idiopathic) with ulcer of left lower extremity; R18.8 Other ascites; S41.101A Unspecified open wound of right upper arm, initial encounter; S41.102A Unspecified open wound of left upper arm, initial encounter; K74.60 Unspecified cirrhosis of liver; I10 Essential (primary) hypertension; E11.65 Type 2 diabetes mellitus with hyperglycemia; X58.XXXA Exposure to other specified factors, initial encounter; Y93.89 Activity, other specified; Y92.89 Other specified places as the place of occurrence of the external cause; Y99.8 Other external cause status
CPT/HCPCS: 36415; 49083; 70450; 71045; 80048; 80053; 80076; 81001; 82140; 82550; 82948; 83605; 83735; 84484; 85025; 85027; 85610; 85730; 87040; 87071; 87205; 93005; 99291; A6248; C1729; G0378; J0696; J2405; J2470; J3475; P9046

== ENCOUNTER 2025-05-08 11:27 | Emergency (ER) | payer BC, MEDICAID ==
[~2025-05-08] VITALS: Ht 165.1 cm; Wt 63.5 kg
[~2025-05-08 11:27] MED LIST changes: -AZIT500T4 PO; -CLIN-141 PO
[2025-05-08 11:28] VITALS: TEMP 97.1
--- NOTE | 2025-05-08 11:32 | NUR ---
PT JUST NOW PLACED IN ED BED 09
[2025-05-08 11:51] LABS: IMMATURE GRANULOCYTE ABSOLUTE 0.01 K/uL (0-1); NUCLEATED RED BLOOD CELLS 0.0 % (0.0-0.19); PLATELET COUNT (AUTO) 187 K/uL (130-400); RED BLOOD CELL COUNT(AUTO) 3.29 MIL/uL (4.50-6.20); RED CELL DISTRIBUTION WIDTH 16.7 % (11.0-15.5); WHITE BLOOD COUNT (AUTO) 5.0 K/uL (4.8-10.8)
[2025-05-08 12:03] LABS: CREATININE 0.9 mg/dL (0.5-1.3); GLOMERULAR FILTR. RATE CALC 98.0 mL/min (>90); GLUCOSE,RANDOM 173.0 mg/dL (70-105); SODIUM SERUM 136.0 mmol/L (136-145); UREA NITROGEN, BLOOD 16.0 mg/dL (7-18)
--- NOTE | 2025-05-08 13:13 | NUR ---
PT PROVIDED URINAL
--- NOTE | 2025-05-08 14:30 | NUR ---
URINE WAS COLLECTED, LABELED AND SENT TO LAB
[2025-05-08 14:38] LABS: APPEARANCE,URINE CLEAR (CLEAR); GLUCOSE, URINE (UA) NEGATIVE (NEGATIVE); LEUKOCYTE ESTERASE ,URINE NEGATIVE Leu/uL (NEGATIVE); NITRATE,URINE NEGATIVE (NEGATIVE); OCCULT BLOOD,URINE SMALL (NEGATIVE)
[2025-05-08 14:42] LABS: SQUAMOUS EPITHELIAL CELL,UR RARE /HPF (0-2)
--- NOTE | 2025-05-08 15:30 | NUR ---
PT OFFERED JELLO/APPLE SAUCE AND JUICE TO SEE IF HE COULD TOLERATE
--- NOTE | 2025-05-08 15:44 | EKG ---
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
[2025-05-08 15:49] VITALS: BP 97/64; PULSE 76; RESP 17; O2SAT 99
--- NOTE | 2025-05-08 15:51 | NUR ---
PT TOLERATED THE SNACKS OF APPLE SAUCE, JELLO AND JUICE THAT WSAS PROVIDED TO HIM. SON AT BEDSIDE.
[2025-05-08] MEDS ORDERED: ONDA-243 PO (15:53)
--- NOTE | 2025-05-08 15:53 | ERN ---
General Chief Complaint: Nausea,Vomiting,Diarrhea Stated Complaint: NAUSEA VOMITING ONSET TODAY. WEAKNESS X2 WEEKS Time Seen by MD: 11:31 History of Present Illness Initial Comments 59-year-old male came in for nausea. Patient states that he vomited once at home without any blood in his vomit. Patient otherwise has no concerns. Allergies: Coded Allergies: bee venom protein (honey bee) (Unverified Allergy, Unknown, 06/30/24) Home Meds Active Scripts Spironolactone (Spironolactone) 25 Mg Tablet, 25 MG PO BID, #60 TAB 0 Refills Prov:STIVEN CRAWLEY AGACNP 02/19/24 Propranolol HCl (Inderal) 10 Mg Tab, 10 MG PO DAILY, #30 TAB 0 Refills Prov:STIVEN CRAWLEY AGACNP 02/19/24 Pantoprazole Sodium (Protonix) 40 Mg Tablet.dr, 40 MG PO BID, #60 TAB 0 Refills Prov:STIVEN CRAWLEY AGACNP 02/19/24 Multivitamins,Therapeutic (Multivitamin Tablet) 400 Mcg Tab, 1 TAB PO DAILY, #30 TAB 0 Refills Prov:STIVEN CRAWLEY AGACNP 02/19/24 Lactulose (Cephulac/Enulose Soln) 20 Gram/30 Ml Soln, 20 GM PO DAILY, #1 BOTTLE Prov:STIVEN CRAWLEY AGACNP 02/19/24 Furosemide (Lasix 20Mg Tab) 20 Mg Tablet, 20 MG PO DAILY, #30 TAB Prov:STIVEN CRAWLEY AGACNP 02/19/24 Past Medical History Past Medical History: Anemia, Diabetes-Type II, Hypertension, Liver Disease Medical History Other: CIRRHOSIS, WOUNDS TO L/R FA Past Surgical History: Other Surgical History Other: RLE WOUND GRAFT, PARACENTESIS ROS Dictation Nausea Physical Exam General Appearance: (+) no apparent distress, (+) apparent distress Orientation: (+) alert, (+) oriented x 3 Neck: (+) normal inspection, (+) supple Respiratory: (+) chest non-tender, (+) lungs clear Heart: (+) regular, (+) no gallop Gastrointestinal: (+) soft, (+) non-tender, (+) no organomegaly, (+) bowel sound present Results Laboratory and Microbiology Lab and Micro Result Laboratory Tests Test 05/08/25 11:40 05/08/25 14:30 White Blood Count 5.0 K/uL (4.8-10.8) Red Blood Count 3.29 MIL/uL (4.50-6.20) L Hemoglobin 9.0 g/dL (14.0-18.0) L Hematocrit 29.3 % (42-54) L Mean Corpuscular Volume 89.1 fL (79-99) Mean Corpuscular Hemoglobin 27.4 pg (27.0-33.0) Mean Corpuscular Hemoglobin Concent 30.7 g/dL (32.0-36.0) L Red Cell Distribution Width 16.7 % (11.0-15.5) H Platelet Count 187 K/uL (130-400) Mean Platelet Volume 8.8 fL (7.5-10.5) Immature Granulocyte % (Auto) 0.2 % (0-1) Neutrophils (%) (Auto) 59.8 % (40.0-77.0) Lymphocytes (%) (Auto) 20.0 % (21.0-51.0) L Monocytes (%) (Auto) 12.4 % (3.0-13.0) Eosinophils (%) (Auto) 6.6 % (0.0-8.0) Basophils (%) (Auto) 1.0 % (0.0-5.0) Neutrophils # (Auto) 3.0 K/uL (1.8-7.7) Lymphocytes # (Auto) 1.0 K/uL (1.0-4.8) Monocytes # (Auto) 0.6 K/uL (0.1-1.0) Eosinophils # (Auto) 0.33 K/uL (0.00-0.70) Basophils # (Auto) 0.05 K/uL (0.00-0.20) Absolute Immature Granulocyte (auto 0.01 K/uL (0-1) Nucleated Red Blood Cells 0.0 % (0.0-0.19) Red Blood Cell Morphology See comments Sodium Level 136 mmol/L (136-145) Potassium Level 4.6 mmol/L (3.5-5.1) Chloride Level 106 mmol/L (101-111) Carbon Dioxide Level 23 mmol/L (21-32) Blood Urea Nitrogen 16 mg/dL (7-18) Creatinine 0.9 mg/dL (0.5-1.3) Glomerular Filtration Rate Calc 98 mL/min (>90) Random Glucose 173 mg/dL (70-105) H Lactic Acid Level 1.1 mmol/L (0.8-2.5) Total Calcium 8.3 mg/dL (8.5-10.1) L Troponin I High Sensitivity 11 ng/L (4-75) Lipase 99 U/L (16-77) H Procalcitonin < 0.05 ng/mL (0.05-0.5) L Urine Color LIGHT-YELLOW (YELLOW) Urine Appearance CLEAR (CLEAR) Urine pH 6.0 (5.0-8.0) Urine Specific Palmer 1.015 (1.001-1.031) Urine Protein NEGATIVE mg/dL (NEGATIVE) Urine Glucose (UA) NEGATIVE mg/dL (NEGATIVE) Urine Ketones NEGATIVE mg/dL (NEGATIVE) Urine Occult Blood SMALL (NEGATIVE) H Urine Nitrate NEGATIVE (NEGATIVE) Urine Bilirubin NEGATIVE mg/dL (NEGATIVE) Urine Urobilinogen 0.2 mg/dL (0.2-1.0) Urine Leukocyte Esterase NEGATIVE Anupama/uL Urine RBC 6-10 /HPF (0-1) H Urine WBC 0-1 /HPF (0-1) Urine Squamous Epithelial Cells RARE /HPF (0-2) Urine Bacteria None /HPF (None Seen) MDM MDM: Differential diagnosis: Rationale: Tests considered and ordered secondary to shared decision making include: Previous outside records reviewed: Old ER visits. Risk of complication and/or morbidity or mortality of patient management: None Medications-Per medication reconciliation Need for hospitalization: Patient does not meet criteria for hospitalization. Need for emergency major/minor surgery: No There are no social concerns with this patient. Prescription drug management Prescriptions will include symptomatic care Patient's prior external medical records from other ER visits were reviewed by me as indicated. Prior testing and results from previous visits were reviewed. Prior tests were taken into account with medical decision making and resource utilization, independent historian/historians were used to obtain complete medical history. I independently interpreted the test that were performed, results were reviewed by me and considered findings on radiology if ordered. Medical management and examination interpretation discussions were had by me with other qualified healthcare professionals as indicated for the patient's care. Patient is re-evaluated and states that he feels better and no longer has nausea. Patient also ate lunch without any concerns. Patient states that he wants to go home. Patient is advised to follow up with the primary care physician as soon as possible. Patient is a sinus agrees with the plan of care. ED Course Orders Procedure Category Date Status Time 12 Lead Ekg Tracing- EKG 05/08/25 Complete Technical 11:37 Cbc With Differential LAB 05/08/25 Complete 11:37 Basic Metabolic Panel LAB 05/08/25 Complete 11:37 Lactic Acid LAB 05/08/25 Complete 11:37 Lipase LAB 05/08/25 Complete 11:37 Procalcitonin LAB 05/08/25 Complete 11:37 Troponin I High LAB 05/08/25 Complete Sensitivity 11:37 Urinalysis LAB 05/08/25 Complete W/Microscopic 11:37 Ondansetron 4mg Inj PHA 05/08/25 Complete (Zofran 4mg Inj) 12:00 Pantoprazole 40mg Inj PHA 05/08/25 Complete (Protonix 40mg Inj 12:00 Ammonia LAB 05/08/25 Logged 15:38 Current Medications Medications (Trade) Dose Ordered Sig/Maciej Route PRN Reason Start Time Stop Time Status Last Admin Dose Admin Ondansetron HCl (zoFRAN 4MG INJ) 4 mg ONCE ONCE IVP 05/08/25 12:00 05/08/25 12:01 DC 05/08/25 12:03 Pantoprazole Sodium (PROTonix 40MG INJ) 40 mg ONCE ONCE IVP 05/08/25 12:00 05/08/25 12:01 DC 05/08/25 12:03 Vital Signs Date Time Temp Pulse Resp B/P (MAP) Pulse Ox O2 Delivery O2 Flow Rate FiO2 05/08/25 15:49 76 17 97/64 99 Room Air* 0 21 05/08/25 12:15 62 17 129/62 100 Room Air* 0 21 05/08/25 11:28 97.2 75 12 157/76 100 Room Air 0 DX & DISP Disposition: Discharge Departure Impression: Primary Impression: Nausea Condition: Stable Scripts Ondansetron (Ondansetron Odt) 4 Mg Tab.rapdis 4 MG PO BID for 2 Days, #4 TAB Prov: THOMAS BLANK MD 05/08/25 Referrals: SLIME ELDRIDGE MD (PCP) THOMAS BLANK MD May 08, 2025 15:53
== END 2025-05-08 16:15 | disposition home or self-care (01) ==
LOC: EDH 11:27
DX: R11.2 Nausea with vomiting, unspecified (principal); R53.1 Weakness; I10 Essential (primary) hypertension; E11.9 Type 2 diabetes mellitus without complications; Z91.030 Bee allergy status; Z79.899 Other long term (current) drug therapy
CPT/HCPCS: 99284; 96374; 96375; 84484; 80048; 83690; 85025; 83605; 81001; 36415; 93005; 84145; J2405; J2470